=== PATIENT | male | born 1985 | race Caucasian/White ===

== ENCOUNTER 2022-10-10 19:16 | Observation (INO) | payer OTHER ==
[2022-10-10] MEDS ORDERED: SODIUM CHLORIDE 0.9% 1,000 ML IV STA (20:01)
[2022-10-10] MEDS ORDERED: HYDROmorphone 0.5 MG/0.5 ML SYRINGE IVP STA (20:01)
[2022-10-10] MEDS ORDERED: ONDANSETRON 4 MG/2 ML VIAL IVP STA (20:01)
[2022-10-10] MEDS ORDERED: LACTATED RINGERS 1,000 ML IV ONE ×2 (20:02→22:07)
[2022-10-10] MEDS ORDERED: PANTOPRAZOLE 40 MG/10 ML VIAL IVP STA (20:05)
--- NOTE | 2022-10-10 20:05 | ED ---
Abdominal Pain HPI - General Chief Complaint: Abdominal Pain Stated Complaint: abd pain/back pain Time Seen by Provider: 10/10/22 19:54 Source: patient, RN notes reviewed, old records reviewed Mode of arrival: ambulatory Limitations: no limitations - History of Present Illness Initial Comments: This is a pleasant 37-year-old presenting with complaints of epigastric abdominal pain radiating into his back feels similar to pancreatitis in the past. States he has chills but no fevers. Nausea and vomiting. States stopped smoking 2 months ago. Does not drink daily but did have 3 beers last night. MD Complaint: abdominal pain -: days(s) (1) Location: epigastric Radiation: back Severity scale (1-10): 9 Quality: sharp Consistency: constant Improves With: nothing Context: other (Feels similar to previous pancreatitis) Associated Symptoms: nausea, chills - Related Data Allergies Allergy/AdvReac Type Severity Reaction Status Date / Time No Known Allergies Allergy Verified 10/10/22 19:28 Review of Systems ROS Statement: Those systems with pertinent positive or pertinent negative responses have been documented in the HPI. ROS Other: All systems not noted in ROS Statement are negative. Past Medical History Additional Past Medical History / Comment(s): Pancrentitis, kidney stone History of Any Multi-Drug Resistant Organisms: None Reported Past Surgical History: No Surgical Hx Reported Past Psychological History: No Psychological Hx Reported Smoking Status: Current every day smoker Past Alcohol Use History: Daily Past Drug Use History: Marijuana General Exam Limitations: no limitations General appearance: alert, in no apparent distress Head exam: Present: atraumatic Eye exam: Absent: scleral icterus, conjunctival injection, periorbital swelling ENT exam: Present: mucous membranes moist Neck exam: Present: full ROM. Absent: tenderness, meningismus Respiratory exam: Absent: respiratory distress, accessory muscle use Cardiovascular Exam: Present: tachycardia GI/Abdominal exam: Present: soft, tenderness (epigastric). Absent: distended, rigid Extremities exam: Present: normal capillary refill. Absent: pedal edema, calf tenderness Back exam: Present: tenderness (lower back). Absent: CVA tenderness (R), CVA tenderness (L), muscle spasm, rash noted Neurological exam: Present: alert, oriented X3 Psychiatric exam: Present: normal affect, normal mood Skin exam: Present: warm, dry, normal color. Absent: cyanosis, diaphoretic, petechiae, pallor Course Vital Signs 10/10/22 10/10/22 10/10/22 19:26 21:48 23:20 Temperature 97.9 F 97.9 F Pulse Rate 103 H 76 Pulse Rate [ 78 Pulse Oximetery ] Respiratory 20 18 17 Rate Blood Pressure 192/91 137/99 Blood Pressure 155/91 [Left Arm] O2 Sat by Pulse 100 97 94 L Oximetry Medical Decision Making - Medical Decision Making Patient was given multiple doses of pain medication and antiemetics. IV fluids were given. There is no evidence of leukocytosis however lipase is 2087 and he will be admitted for acute pancreatitis. No lactic acidosis. Patient does admit now to drinking 3 or 4 days a week up to 6 beers at a time. Occasional liquor use. Computed tomography scan shows moderate retroperitoneal edema around the entire pancreas consistent with acute pancreatitis. Large gallbladder suggestive of gallbladder dysfunction. Fatty infiltration of the liver. Patient is agreeable to admission. Case discussed with Dr. Ibrahim. - Lab Data Result diagrams: 10/10/22 20:39 10/10/22 20:39 Lab Results 10/10/22 10/10/22 10/10/22 Range/Units 20:39 20:39 20:39 WBC 5.1 (3.8-10.6) k/uL RBC 4.79 (4.30-5.90) m/uL Hgb 16.9 (13.0-17.5) gm/dL Hct 47.5 (39.0-53.0) % MCV 99.1 (80.0-100.0) fL MCH 35.3 H (25.0-35.0) pg MCHC 35.6 (31.0-37.0) g/dL RDW 12.3 (11.5-15.5) % Plt Count 228 (150-450) k/uL MPV 7.9 Neutrophils % 69 % Lymphocytes % 25 % Monocytes % 3 % Eosinophils % 3 % Basophils % 0 % Neutrophils # 3.5 (1.3-7.7) k/uL Lymphocytes # 1.3 (1.0-4.8) k/uL Monocytes # 0.1 (0-1.0) k/uL Eosinophils # 0.1 (0-0.7) k/uL Basophils # 0.0 (0-0.2) k/uL Sodium 139 (137-145) mmol/L Potassium 4.3 (3.5-5.1) mmol/L Chloride 104 (98-107) mmol/L Carbon Dioxide 25 (22-30) mmol/L Anion Gap 10 mmol/L BUN 7 L (9-20) mg/dL Creatinine 0.88 (0.66-1.25) mg/dL Est GFR (CKD-EPI)AfAm >90 (>60 ml/min/1.73 sqM) Est GFR (CKD-EPI)NonAf >90 (>60 ml/min/1.73 sqM) Glucose 127 H (74-99) mg/dL Plasma Lactic Acid Higinio 1.2 (0.7-2.0) mmol/L Calcium 9.5 (8.4-10.2) mg/dL Total Bilirubin 1.2 (0.2-1.3) mg/dL AST 60 H (17-59) U/L ALT 52 H (4-49) U/L Alkaline Phosphatase 136 H (38-126) U/L Total Protein 7.9 (6.3-8.2) g/dL Albumin 4.8 (3.5-5.0) g/dL Amylase 80 (30-110) U/L Lipase 2087 H (23-300) U/L Disposition Clinical Impression: Pancreatitis Disposition: ADMITTED IP TO THIS [facility] Decision Date: 10/10/22 Decision Time: 22:09
--- NOTE | 2022-10-10 21:06 | XR ---
EXAMINATION TYPE: XR KUB DATE OF EXAM: 10/10/2022 COMPARISON: NONE HISTORY: Abdominal pain TECHNIQUE: 2 views upright FINDINGS: Bowel gas pattern is normal. No sign of intestinal obstruction or pneumoperitoneum. Fecal p attern is normal. No sign of a mass. IMPRESSION: Nonacute abdomen.
[2022-10-10 21:08] LABS: Basophils % (A) 0 %; Eosinophils # (A) 0.1 k/uL (0-0.7); Eosinophils % (A) 3 %; HCT 47.5 % (39.0-53.0); HGB 16.9 gm/dL (13.0-17.5); Lymphocytes # (A) 1.3 k/uL (1.0-4.8); Lymphocytes % (A) 25 %; MCH 35.3 pg (25.0-35.0); MCHC 35.6 g/dL (31.0-37.0); MCV 99.1 fL (80.0-100.0); Mean Platelet Volume 7.9; Monocytes # (A) 0.1 k/uL (0-1.0); Monocytes % (A) 3 %; Neutrophils # (A) 3.5 k/uL (1.3-7.7); Neutrophils % (A) 69 %; Platelet Count 228 k/uL (150-450); RBC 4.79 m/uL (4.30-5.90); RDW 12.3 % (11.5-15.5); WBC 5.1 k/uL (3.8-10.6)
[2022-10-10] MEDS ORDERED: HYDROmorphone 1 MG/ML 1 ML SYRINGE IVP STA (21:17)
[2022-10-10 21:33] LABS: ALT 52 U/L (4-49); AST 60 U/L (17-59); African American GFR (CKD) >90 (>60 ml/min/1.73 sqM); Albumin 4.8 g/dL (3.5-5.0); Alkaline Phosphatase 136 U/L (38-126); Amylase 80 U/L (30-110); Anion Gap 10 mmol/L; Blood Urea Nitrogen 7 mg/dL (9-20); Calcium 9.5 mg/dL (8.4-10.2); Carbon Dioxide 25 mmol/L (22-30); Chloride 104 mmol/L (98-107); Glucose 127 mg/dL (74-99); Non-African American GFR(CKD) >90 (>60 ml/min/1.73 sqM); Potassium 4.3 mmol/L (3.5-5.1); Sodium 139 mmol/L (137-145); Total Bilirubin 1.2 mg/dL (0.2-1.3); Total Protein 7.9 g/dL (6.3-8.2)
[2022-10-10] MEDS ORDERED: LORazepam 2 MG/ML INJ IV STA (21:52)
[2022-10-10 21:59] LABS: Lipase 2087 U/L (23-300)
[2022-10-10] MEDS ORDERED: NALOXONE 0.4 MG/ML 1 ML VIAL IV PRN (22:09)
[2022-10-10] MEDS ORDERED: ONDANSETRON 4 MG/2 ML VIAL IVP PRN (22:09)
--- NOTE | 2022-10-10 23:12 | CT ---
EXAMINATION TYPE: CT abdomen pelvis w con DATE OF EXAM: 10/10/2022 COMPARISON: None HISTORY: RUQ pain CT DLP: 668.9 mGycm Automated exposure control for dose reduction was used. CONTRAST: Performed with IV Contrast, patient injected with 100cc mL of Isovue 300. Images obtained from the diaphragm to the floor the pelvis with IV contrast. Lung bases are clear. No pleural effusion. Heart size is normal. No pericardial effusion. Liver splee n and stomach appear intact. There is some fat stranding around the pancreas. No pancreatic mass. Gal lbladder is large and measures 4.5 cm in diameter. The intrahepatic bile duct are not dilated. There is some fatty infiltration of the liver. There is no adrenal mass. Kidneys show satisfactory contrast opacification. No hydronephrosis. Ureter s are not dilated. Bladder distends smoothly. No inguinal hernia. No free fluid in the pelvis. No pel magdy mass. There is no mesenteric edema. No ascites or free air. No sign of a bowel obstruction. There are clips from appendectomy. Appendix not seen. The lumbar vertebrae have normal alignment. No compression fracture. Bony pelvis is intact. The hip j oints are intact. IMPRESSION: Moderate retroperitoneal edema around the entire pancreas and consistent with acute pancreatitis. Lar ge gallbladder is suggestive of gallbladder dysfunction. Fatty infiltration of the liver.
--- NOTE | 2022-10-11 03:17 | P.HPIM ---
History of Present Illness H&P Date: 10/10/22 The patient is a 37-year-old male with a PMH of the alcohol abuse who presents to the emergency room with complaints of abdominal pain, nausea, vomiting. The patient reports that he woke up this morning with epigastric abdominal discomfort, 8 out of 10 on maximal intensity, radiating to the back, constant, worsened with any food, with accompanying nausea and multiple episodes of nonbloody nonbilious emesis. Patient states that he drinks up to 10 beers daily and has been doing so for the past several years but states that yesterday he only had 3 beers. He reported that his abdominal pain is improved to a 4 out of 10 at the time of interview. Reports that his symptoms are similar to his prior episodes of acute pancreatitis for which he has been hospitalized at other facilities in the past. He denied experiencing chest discomfort or shortness of breath. He denied fever, chills, cough. CT abdomen and pelvis in the emergency room revealed findings consistent with acute cholecystitis with an enlarged gallbladder as well as fatty infiltration of the liver. Laboratory evaluation was remarkable for AST 60, ALT 52, and a lipase of 2087. The case was discussed in detail with the ED physician. Review of systems: Pertinent positives and negatives as discussed in HPI, a complete review of systems was performed and all other systems are negative. Physical examination: General: non toxic, no distress, appears older than stated age, normal weight Derm: no unusual rashes/lesions, warm Head: atraumatic, normocephalic, symmetric Eyes: EOMI, no lid lag, anicteric sclera, pupils equal round reactive to light ENT: Nose and ears atraumatic Neck: No cervical lymphadenopathy, trachea midline, supple Mouth: no lip lesion, mucus membranes moist Cardiovascular: S1S2 reg, no murmur, positive dorsalis pedis pulse bilateral, no edema Lungs: CTA bilateral, no rhonchi, no rales, no accessory muscle use Abdominal: soft, epigastric tenderness, some guarding Ext: muscle strength 5 out of 5 in all 4 extremities grossly, no gross muscle atrophy, no contractures, Neuro: CN II-XI grossly intact, no gross focal neuro deficits Psych: Alert, oriented, appropriate affect Assessment/plan Acute alcoholic pancreatitis -Continue with IV fluids -Monitor lipase -Nothing by mouth for now -Antiemetics -Pain control -Strongly advised on importance of cessation of alcohol use DVT prophylaxis -Heparin subcu The patient is admitted with an anticipated less than 2 midnight stay for evaluation of acute pancreatitis CODE STATUS: Full Code Discussed with: Patient Anticipated discharge date: in am Anticipated discharge place: Home Past Medical History Additional Past Medical History / Comment(s): Pancrentitis, kidney stone History of Any Multi-Drug Resistant Organisms: None Reported Past Surgical History: No Surgical Hx Reported Past Anesthesia/Blood Transfusion Reactions: No Reported Reaction Past Psychological History: No Psychological Hx Reported Smoking Status: Current every day smoker Past Alcohol Use History: Daily Past Drug Use History: Marijuana Medications and Allergies Allergies Allergy/AdvReac Type Severity Reaction Status Date / Time No Known Allergies Allergy Verified 10/10/22 19:28 Physical Exam Vitals: Vital Signs Temp Pulse Pulse Resp BP BP Pulse Ox 10/10/22 23:20 97.9 F 78 17 155/91 94 L 10/10/22 21:48 76 18 137/99 97 10/10/22 19:26 97.9 F 103 H 20 192/91 100 Intake and Output 10/10/22 10/10/22 10/11/22 14:59 22:59 06:59 Other: Weight 65.771 kg 65.771 kg Results CBC & Chem 7: 10/10/22 20:39 10/10/22 20:39 Labs: Abnormal Lab Results - Last 24 Hours (Table) 10/10/22 10/10/22 Range/Units 20:39 20:39 MCH 35.3 H (25.0-35.0) pg BUN 7 L (9-20) mg/dL Glucose 127 H (74-99) mg/dL AST 60 H (17-59) U/L ALT 52 H (4-49) U/L Alkaline Phosphatase 136 H (38-126) U/L Lipase 2087 H (23-300) U/L Thrombosis Risk Factor Assmnt - Choose All That Apply Any of the Below Risk Factors Present?: No Other Risk Factors: No Other congenital or acquired thrombophilia - If yes, enter type in comment: No Thrombosis Risk Factor Assessment Level: Very Low Risk
[2022-10-11 06:06] LABS: Basophils % (A) 0 %; Eosinophils % (A) 1 %; HCT 42.2 % (39.0-53.0); HGB 15.3 gm/dL (13.0-17.5); Lymphocytes # (A) 1.1 k/uL (1.0-4.8); Lymphocytes % (A) 12 %; MCH 35.7 pg (25.0-35.0); MCHC 36.3 g/dL (31.0-37.0); MCV 98.3 fL (80.0-100.0); Mean Platelet Volume 8.1; Monocytes # (A) 0.4 k/uL (0-1.0); Monocytes % (A) 4 %; Neutrophils # (A) 7.7 k/uL (1.3-7.7); Neutrophils % (A) 82 %; Platelet Count 166 k/uL (150-450); RBC 4.29 m/uL (4.30-5.90); RDW 12.2 % (11.5-15.5); WBC 9.3 k/uL (3.8-10.6)
[2022-10-11 06:14] LABS: ALT 42 U/L (4-49); AST 48 U/L (17-59); African American GFR (CKD) >90 (>60 ml/min/1.73 sqM); Albumin 3.9 g/dL (3.5-5.0); Alkaline Phosphatase 96 U/L (38-126); Amylase 116 U/L (30-110); Anion Gap 10 mmol/L; Blood Urea Nitrogen 4 mg/dL (9-20); Calcium 8.5 mg/dL (8.4-10.2); Carbon Dioxide 22 mmol/L (22-30); Chloride 104 mmol/L (98-107); Glucose 93 mg/dL (74-99); Non-African American GFR(CKD) >90 (>60 ml/min/1.73 sqM); Sodium 136 mmol/L (137-145); Total Bilirubin 1.3 mg/dL (0.2-1.3); Total Protein 6.3 g/dL (6.3-8.2)
[2022-10-11 06:29] LABS: Lipase 2554 U/L (23-300)
[2022-10-11] MEDS: SODIUM CHLORIDE 0.9% 1,000 ML IV SCH ×2 (06:58→14:51)
[2022-10-11] MEDS: PANTOPRAZOLE 40 MG/10 ML VIAL IV SCH (08:22)
[2022-10-11] MEDS: HEPARIN SODIUM,PORCINE/PF 5,000 UNIT/0.5 ML SYRINGE SQ SCH ×2 (08:22→17:27)
[2022-10-11] MEDS: HYDROmorphone 0.5 MG/0.5 ML SYRINGE IVP PRN ×3 (08:22→20:41)
[2022-10-11] MEDS ORDERED: LORazepam 2 MG/ML INJ IV PRN ×3 (13:25)
--- NOTE | 2022-10-11 14:53 | P.PN ---
Subjective Progress Note Date: 10/11/22 Patient is a 37-year-old male with known alcohol abuse who presented to the emergency room with complaints of abdominal pain, nausea, vomiting. In the emergency department he underwent an extensive evaluation. Initial vital signs showed the patient to be hypertensive with a blood pressure of 192/91 and tachycardic with a heart rate of 103. Initial laboratory analysis was remarkable for an AST 60, ALT 52, and lipase 2087. CT abdomen and pelvis in the emergency room revealed findings consistent with acute increased otitis with an enlarged gallbladder as well as fatty infiltration of the liver. Patient was started on IV fluids, antiemetics, and pain control. Arrangements were made for admission. Seen and examined at bedside. He complains of continued abdominal pain that is less than yesterday. He is having some tremors, no nausea, no headache he does feel that he is having some alcohol withdrawal. He states he had worsening problems with pancreatitis when he was in the 9 months ago was drinking hard alcohol. We discussed the importance of him abstaining from any alcohol. General: nontoxic, no distress, appears at stated age Derm: warm, dry Head: atraumatic, normocephalic, symmetric Eyes: EOMI, no lid lag, anicteric sclera Mouth: no lip lesion, mucus membranes moist Cardiovascular: S1S2 reg, no murmur, positive posterior tibial pulse bilateral, Lungs: CTA bilateral, no rhonchi, no rales , no accessory muscle use Abdominal: soft, + tender to palpation diffusely, no guarding, no appreciable organomegaly Ext: no gross muscle atrophy, no edema, no contractures Neuro: CN II-XI grossly intact, no focal neuro deficits, mild tremors Psych: Alert, oriented, appropriate affect Assessment/plan Acute alcoholic pancreatitis -Continue with IV fluids -Monitor lipase -Nothing by mouth for now -Antiemetics -Pain control -Strongly advised on importance of cessation of alcohol use ETOH withdrawal - CIWA - Thiamine - Folic Acid - Discussed need for sessation cessation DVT prophylaxis: heparin Anticipated discharge date: in am Anticipated discharge place: Home Objective - Vital Signs Vital signs: Vital Signs Temp 98.1 F 10/11/22 07:00 Pulse 70 10/11/22 07:00 Resp 15 10/11/22 07:00 BP 138/93 10/11/22 07:00 Pulse Ox 99 10/11/22 07:00 FiO2 Intake & Output 12/31/22 01/01/23 01/01/23 18:59 06:59 18:59 Weight 65.771 kg Other: Voiding Method Toilet # Voids 1 - Labs CBC & Chem 7: 10/11/22 05:14 10/11/22 05:23 Labs: Abnormal Lab Results - Last 24 Hours (Table) 10/10/22 10/10/22 10/11/22 Range/Units 20:39 20:39 05:14 RBC 4.29 L (4.30-5.90) m/uL MCH 35.3 H 35.7 H (25.0-35.0) pg Sodium (137-145) mmol/L BUN 7 L (9-20) mg/dL Glucose 127 H (74-99) mg/dL AST 60 H (17-59) U/L ALT 52 H (4-49) U/L Alkaline Phosphatase 136 H (38-126) U/L Amylase (30-110) U/L Lipase 2087 H (23-300) U/L 10/11/22 Range/Units 05:23 RBC (4.30-5.90) m/uL MCH (25.0-35.0) pg Sodium 136 L (137-145) mmol/L BUN 4 L (9-20) mg/dL Glucose (74-99) mg/dL AST (17-59) U/L ALT (4-49) U/L Alkaline Phosphatase (38-126) U/L Amylase 116 H (30-110) U/L Lipase 2554 H (23-300) U/L
[2022-10-12] MEDS: SODIUM CHLORIDE 0.9% 1,000 ML IV SCH ×4 (00:01→20:52)
[2022-10-12] MEDS: HEPARIN SODIUM,PORCINE/PF 5,000 UNIT/0.5 ML SYRINGE SQ SCH ×4 (00:01→23:52)
[2022-10-12] MEDS: HYDROmorphone 0.5 MG/0.5 ML SYRINGE IVP PRN ×4 (00:13→12:54)
[2022-10-12] MEDS: MULTIVITAMINS, THERA 1 EACH TAB PO SCH (08:45)
[2022-10-12] MEDS: FOLIC ACID 1 MG TAB PO SCH (08:45)
[2022-10-12] MEDS: PANTOPRAZOLE 40 MG/10 ML VIAL IV SCH (08:45)
[2022-10-12] MEDS: THIAMINE 100 MG TAB PO SCH (08:45)
--- NOTE | 2022-10-12 14:59 | P.PN ---
Subjective Progress Note Date: 10/12/22 Patient is a 37-year-old male with known alcohol abuse who presented to the emergency room with complaints of abdominal pain, nausea, vomiting. In the emergency department he underwent an extensive evaluation. Initial vital signs showed the patient to be hypertensive with a blood pressure of 192/91 and tachycardic with a heart rate of 103. Initial laboratory analysis was remarkable for an AST 60, ALT 52, and lipase 2087. CT abdomen and pelvis in the emergency room revealed findings consistent with acute increased otitis with an enlarged gallbladder as well as fatty infiltration of the liver. Patient was started on IV fluids, antiemetics, and pain control. Arrangements were made for admission. Seen and examined at bedside. He complains of continued abdominal pain 6/10 in severity that can worsen to 9/10 with meals. General: nontoxic, no distress, appears at stated age Derm: warm, dry Head: atraumatic, normocephalic, symmetric Eyes: EOMI, no lid lag, anicteric sclera Mouth: no lip lesion, mucus membranes moist Cardiovascular: S1S2 reg, no murmur Lungs: CTA bilateral, no rhonchi, no rales , no accessory muscle use Abdominal: soft, + tender to palpation diffusely, no guarding, no appreciable organomegaly Ext: no gross muscle atrophy, no edema, no contractures Neuro: no focal neuro deficits, mild tremors Psych: Alert, oriented, appropriate affect #Acute alcoholic pancreatitis Continue with IV fluids Monitor lipase Advance diet to GI soft Antiemetics Pain control: Dilaudid PRN, added Percocet Strongly advised on importance of cessation of alcohol use #ETOH withdrawal CIWA Thiamine Folic Acid Discussed need for cessation cessation Objective - Vital Signs Vital signs: Vital Signs Temp 98.1 F 10/12/22 07:00 Pulse 81 10/12/22 07:00 Resp 16 10/12/22 07:00 BP 122/78 10/12/22 07:00 Pulse Ox 98 10/12/22 07:00 FiO2 Intake & Output 10/11/22 10/12/22 10/12/22 18:59 06:59 18:59 Intake Total 60 236 Balance 60 236 Intake: Oral 60 236 Other: Voiding Method Toilet # Voids 2 2 1 - Labs CBC & Chem 7: 10/11/22 05:14 10/11/22 05:23
[2022-10-12] MEDS: oxyCODONE-APAP 10-325MG 1 EACH TAB PO PRN ×2 (16:11→20:50)
[2022-10-13] MEDS: HYDROmorphone 0.5 MG/0.5 ML SYRINGE IVP PRN (00:28)
[2022-10-13] MEDS: oxyCODONE-APAP 10-325MG 1 EACH TAB PO PRN ×3 (04:09→13:07)
[2022-10-13] MEDS: SODIUM CHLORIDE 0.9% 1,000 ML IV SCH (05:43)
[2022-10-13] MEDS: THIAMINE 100 MG TAB PO SCH (08:31)
[2022-10-13] MEDS: HEPARIN SODIUM,PORCINE/PF 5,000 UNIT/0.5 ML SYRINGE SQ SCH (08:31)
[2022-10-13] MEDS: FOLIC ACID 1 MG TAB PO SCH (08:32)
[2022-10-13] MEDS: MULTIVITAMINS, THERA 1 EACH TAB PO SCH (08:32)
[2022-10-13 09:09] VITALS: RESP 17
[2022-10-13] MEDS: PANTOPRAZOLE 40 MG/10 ML VIAL IV SCH (10:29)
[2022-10-13 15:25] VITALS: BP 126/86; PULSE 76; TEMP 98.1
--- NOTE | 2022-10-13 17:30 | P.DS ---
Providers Date of admission: 10/10/22 22:30 Expected date of discharge: 10/13/22 Attending physician: Geo Cisneros MD Primary care physician: Bob Dailey MD Hospital Course: Patient is a 37-year-old male with known alcohol abuse who presented to the emergency room with complaints of abdominal pain, nausea, vomiting. In the emergency department he underwent an extensive evaluation. Initial vital signs showed the patient to be hypertensive with a blood pressure of 192/91 and tachycardic with a heart rate of 103. Initial laboratory analysis was remarkable for an AST 60, ALT 52, and lipase 2087. CT abdomen and pelvis in the emergency room revealed findings consistent with acute increased otitis with an enlarged gallbladder as well as fatty infiltration of the liver. Patient was started on IV fluids, antiemetics, and pain control. Arrangements were made for admission. Patient's pain control was adequate with Percocet and Dilaudid as needed. He was able to tolerate GI soft diet at the time of discharge. Seen and examined at bedside. He complains of continued abdominal pain that is improved since admission. He reports no nausea or vomiting. He is requesting to be discharged home. Pertinent studies include KUB, CTAP General: nontoxic, no distress, appears at stated age Derm: warm, dry Head: atraumatic, normocephalic, symmetric Eyes: EOMI, no lid lag, anicteric sclera Mouth: no lip lesion, mucus membranes moist Cardiovascular: S1S2 reg, no murmur Lungs: CTA bilateral, no rhonchi, no rales , no accessory muscle use Abdominal: soft, + tender to palpation diffusely, no guarding, no appreciable organomegaly Ext: no gross muscle atrophy, no edema, no contractures Neuro: no focal neuro deficits Psych: Alert, oriented, appropriate affect Discharge diagnosis: #Acute alcoholic pancreatitis #ETOH withdrawal Patient Condition at Discharge: Stable Plan - Discharge Summary New Discharge Prescriptions: New oxyCODONE-APAP 10-325MG [Percocet 10-325 mg] 1 each PO Q4HR PRN #18 tab PRN Reason: Pain Pantoprazole [Protonix] 40 mg PO DAILY #30 tab Discharge Medication List Pantoprazole [Protonix] 40 mg PO DAILY #30 tab 10/13/22 [Rx] oxyCODONE-APAP 10-325MG [Percocet 10-325 mg] 1 each PO Q4HR PRN #18 tab 10/13/22 [Rx] Follow up Appointment(s)/Referral(s): None,Stated [REFERRING] - 1-2 days Patient Instructions/Handouts: Pancreatitis (DC) Activity/Diet/Wound Care/Special Instructions: Diet: Regular Refrain from drinking alcohol. Discharge/Stand Alone Forms: AA Meetings [place], Outpatient Counseling, In Substance Abuse Facilities Discharge Disposition: HOME SELF-CARE
== END 2022-10-13 16:02 | disposition home or self-care (01) ==
LOC: EC 19:16 → 6NMEDSUR 22:30
PROVIDERS: ADMIT Internal Medicine; ATTEND Internal Medicine
DX: K85.20 Alcohol induced acute pancreatitis without necrosis or infection (principal); F10.239 Alcohol dependence with withdrawal, unspecified; K76.0 Fatty (change of) liver, not elsewhere classified; K82.8 Other specified diseases of gallbladder; R03.0 Elevated blood-pressure reading, without diagnosis of hypertension; R00.0 Tachycardia, unspecified; Z71.41 Alcohol abuse counseling and surveillance of alcoholic; Z87.442 Personal history of urinary calculi; Z87.19 Personal history of other diseases of the digestive system; Z87.891 Personal history of nicotine dependence
CPT/HCPCS: 96376 ×4; 96361 ×3; 96372 ×3; 96374; 96375; 99285; 36415; 80053 ×2; 82150 ×2; 83605; 83690 ×2; 85025 ×2; 74018; 74177; G0378 ×4; J2060; J2405; J1170 ×5; C9113 ×3; Q9967; J1790; J1644 ×3

== ENCOUNTER 2023-03-12 13:41 | Observation (INO) | payer OTHER ==
[2023-03-12] MEDS ORDERED: KETOROLAC 15 MG/ML 1 ML VIAL IVP STA (14:15)
[2023-03-12] MEDS ORDERED: FAMOTIDINE 20 MG/2 ML VIAL IV STA (14:15)
[2023-03-12] MEDS ORDERED: ONDANSETRON 4 MG/2 ML VIAL IVP STA (14:15)
[2023-03-12] MEDS ORDERED: SODIUM CHLORIDE 0.9% 1,000 ML IV ONE ×2 (14:15→15:54)
--- NOTE | 2023-03-12 14:31 | ED ---
General Adult HPI - General Chief complaint: Abdominal Pain Stated complaint: Abd Pain Time Seen by Provider: 03/12/23 14:06 Source: patient, RN notes reviewed Mode of arrival: ambulatory Limitations: no limitations - History of Present Illness Initial comments: 37-year-old male with no significant past medical history presents to the emergency department with a chief complaint of abdominal pain. Patient reports that he had epigastric pain accompanied with nausea and vomiting times one day. He denies recent Sick contacts. He reports that the last time that he had this he had pancreatitis. He denies any recent alcohol or drug use. Denies any fevers, flank pain, chest pain, shortness of breath, dysuria, hematuria - Related Data Home Medications Medication Instructions Recorded Confirmed No Known Home Medications 03/12/23 03/12/23 Allergies Allergy/AdvReac Type Severity Reaction Status Date / Time No Known Allergies Allergy Verified 03/12/23 16:34 Review of Systems ROS Statement: Those systems with pertinent positive or pertinent negative responses have been documented in the HPI. ROS Other: All systems not noted in ROS Statement are negative. Past Medical History Additional Past Medical History / Comment(s): Pancreatitis, kidney stone History of Any Multi-Drug Resistant Organisms: None Reported Past Surgical History: No Surgical Hx Reported Past Anesthesia/Blood Transfusion Reactions: No Reported Reaction Past Psychological History: No Psychological Hx Reported Smoking Status: Current every day smoker Past Alcohol Use History: Daily Past Drug Use History: Marijuana General Exam - General Exam Comments Initial Comments: General: Alert, in no acute distress Head: atraumatic normocephalic. Eyes PERRL, EOMI intact, mucous membranes moist Respiratory: Lungs clear to auscultation bilaterally Cardiovascular: Heart rate regular rate and rhythm Abdominal: Soft without guarding or rebound, epigastric tenderness Extremities: Normal inspection with full range of motion and normal capillary refill Neuroogic: alert and oriented 3, CN II-XII intact, able to ambulate with steady gait Skin: warm dry and intact with normal color Limitations: no limitations Course Vital Signs 03/12/23 03/12/23 03/12/23 13:44 17:01 17:32 Temperature 97.7 F 98.3 F Pulse Rate 106 H 100 72 Respiratory 20 18 Rate Blood Pressure 144/87 129/88 O2 Sat by Pulse 99 97 Oximetry 03/12/23 17:42 Temperature Pulse Rate 74 Respiratory Rate Blood Pressure O2 Sat by Pulse Oximetry - Reevaluation(s) Reevaluation #1: 03/12/23 16:19 Patient reevaluated and updated on results. Patient still reporting pain. Patient is agreeable with the plan for admission Reevaluation #2: 03/12/23 16:[address] freitas, [facility] who agrees with plan of care and accepts the patient for admission Reevaluation #3: 03/12/23 17:11 Patient reevaluated. Patient has inspiratory wheezes. Albuterol treatment ordered. EKG Findings - EKG Comments: EKG Findings:: I interpreted the following: EKG performed at 15:00. rate 65 bpm, NSR. PR126, QRS 98, Qt/Qtc 444/461 Medical Decision Making - Medical Decision Making Was pt. sent in by a medical professional or institution (, PA, C UNIX DEVELOPER, urgent care, hospital, or alf...) When possible be specific @ -[No] Did you speak to anyone other than the patient for history (EMS, parent, family, police, friend...)? What history was obtained from this source @ -[No] Did you review nursing and triage notes (agree or disagree)? Why? @ -[I reviewed and agree with nursing and triage notes] Were old charts reviewed (outside hosp., previous admission, EMS record, old EKG, old radiological studies, urgent care reports/EKG's, alf records)? Report findings @ -[No old charts were reviewed] Differential Diagnosis (chest pain, altered mental status, abdominal pain women, abdominal pain men, vaginal bleeding, weakness, fever, dyspnea, syncope, headache, dizziness, GI bleed, back pain, seizure, CVA, palpatations, mental health, musculoskeletal)? @ -[not applicable] EKG interpreted by me (3pts min.). @ -[As above] X-rays interpreted by me (1pt min.). @ -[None done] CT interpreted by me (1pt min.). @ -[None done] U/S interpreted by me (1pt. min.). @ -[None done] What testing was considered but not performed or refused? (CT, X-rays, U/S, labs)? Why? @ -[None] What meds were considered but not given or refused? Why? @ -[None] Did you discuss the management of the patient with other professionals (professionals i.e. , PA, C UNIX DEVELOPER, lab, RT, psych nurse, manager social responsibility, car hopper, teacher, custom protection officer, case worker)? Give summary @ -[No] Was smoking cessation discussed for >3mins.? @ -[No] Was critical care preformed (if so, how long)? @ -[No] Were there social determinants of health that impacted care today? How? (Homelessness, low income, unemployed, alcoholism, drug addiction, transportation, low edu. Level, literacy, decrease access to med. care, prison, rehab)? @ -[No] Was there de-escalation of care discussed even if they declined (Discuss DNR or withdrawal of care, Hospice)? DNR status @ -[No] What co-morbidities impacted this encounter? (DM, HTN, Smoking, COPD, CAD, Cancer, CVA, ARF, Chemo, Hep., AIDS, mental health diagnosis, sleep apnea, morbid obesity)? @ -[None] Was patient admitted / discharged? Hospital course, mention meds given and route, prescriptions, significant lab abnormalities, going to OR and other pertinent info. @ -Admission. This is a 37-year-old male who presents to the emergency department with epigastric pain. Patient had a thorough history and physical exam performed while in the ED. Sickle exam reveals mild epigastric tenderness. No rebound. Abdomen is soft. Patient had lab work and imaging which revealed WBC 6.4, hemoglobin 16.2 chemistry unremarkable BUN 10, creatinine 0.74 lactic acid 0.8 lipase 2697 urine negative, Covid influenza and RSV negative. Ultrasound of the gallbladder reveals no evidence of cholelithiasis. I discussed the results in detail with the patient verbalized understanding. He is agreeable with the plan for admission for further observation. Case discussed with Dr. freitas, [facility] who agrees to accept the patient for admission for further care. Patient was given 2 L of IV fluids. Toradol, Zofran, Pepcid with symptomatic relief. Case discussed with , who agrees with plan of care Undiagnosed new problem with uncertain prognosis? @ -[No] Drug Therapy requiring intensive monitoring for toxicity (Heparin, Nitro, Insulin, Cardizem)? @ -[No] Were any procedures done? @ -[No] Diagnosis/symptom? @ -Pancreatitis - Epigastric Pain Acute, or Chronic, or Acute on Chronic? @ -Acute Uncomplicated (without systemic symptoms) or Complicated (systemic symptoms)? @ -Uncomplicated Side effects of treatment? @ -[No] Exacerbation, Progression, or Severe Exacerbation? @ -[No] Poses a threat to life or bodily function? How? (Chest pain, [place], [place], pneumonia, PE, COPD, DKA, ARF, appy, cholecystitis, CVA, Diverticulitis, Homicidal, Suicidal, threat to staff... and all critical care pts) @ -Low likelihood - Lab Data Result diagrams: 03/12/23 14:20 03/12/23 14:20 Lab Results 03/12/23 03/12/23 03/12/23 Range/Units 14:20 14:20 14:20 WBC 6.4 (3.8-10.6) k/uL RBC 4.74 (4.30-5.90) m/uL Hgb 16.2 (13.0-17.5) gm/dL Hct 47.6 (39.0-53.0) % MCV 100.3 H (80.0-100.0) fL MCH 34.2 (25.0-35.0) pg MCHC 34.1 (31.0-37.0) g/dL RDW 12.5 (11.5-15.5) % Plt Count 178 (150-450) k/uL MPV 7.9 Neutrophils % 65 % Lymphocytes % 15 % Monocytes % 5 % Eosinophils % 13 % Basophils % 0 % Neutrophils # 4.1 (1.3-7.7) k/uL Lymphocytes # 1.0 (1.0-4.8) k/uL Monocytes # 0.3 (0-1.0) k/uL Eosinophils # 0.8 H (0-0.7) k/uL Basophils # 0.0 (0-0.2) k/uL Sodium 138 (137-145) mmol/L Potassium 4.3 (3.5-5.1) mmol/L Chloride 99 (98-107) mmol/L Carbon Dioxide 28 (22-30) mmol/L Anion Gap 11 mmol/L BUN 10 (9-20) mg/dL Creatinine 0.74 (0.66-1.25) mg/dL Est GFR (CKD-EPI)AfAm >90 (>60 ml/min/1.73 sqM) Est GFR (CKD-EPI)NonAf >90 (>60 ml/min/1.73 sqM) Glucose 104 H (74-99) mg/dL Calcium 9.1 (8.4-10.2) mg/dL Total Bilirubin 1.3 (0.2-1.3) mg/dL AST 70 H (17-59) U/L ALT 60 H (4-49) U/L Alkaline Phosphatase 106 (38-126) U/L Total Protein 7.4 (6.3-8.2) g/dL Albumin 4.5 (3.5-5.0) g/dL Amylase 95 (30-110) U/L Lipase 2697 H (23-300) U/L Urine Color Yellow Urine Appearance Clear (Clear) Urine pH 6.0 (5.0-8.0) Ur Specific [place] 1.030 (1.001-1.035) Urine Protein 1+ H (Negative) Urine Glucose (UA) Negative (Negative) Urine Ketones 4+ H (Negative) Urine Blood Negative (Negative) Urine Nitrite Negative (Negative) Urine Bilirubin 1+ H (Negative) Urine Urobilinogen 3.0 (<2.0) mg/dL Ur Leukocyte Esterase Negative (Negative) Urine RBC 1 (0-5) /hpf Urine WBC 4 (0-5) /hpf Ur Squamous Epith Cells <1 (0-4) /hpf Urine Mucus Many H (None) /hpf Influenza Type A (PCR) (Not Detectd) Influenza Type B (PCR) (Not Detectd) RSV (PCR) (Not Detectd) SARS-CoV-2 (PCR) (Not Detectd) 03/12/23 Range/Units 14:20 WBC (3.8-10.6) k/uL RBC (4.30-5.90) m/uL Hgb (13.0-17.5) gm/dL Hct (39.0-53.0) % MCV (80.0-100.0) fL MCH (25.0-35.0) pg MCHC (31.0-37.0) g/dL RDW (11.5-15.5) % Plt Count (150-450) k/uL MPV Neutrophils % % Lymphocytes % % Monocytes % % Eosinophils % % Basophils % % Neutrophils # (1.3-7.7) k/uL Lymphocytes # (1.0-4.8) k/uL Monocytes # (0-1.0) k/uL Eosinophils # (0-0.7) k/uL Basophils # (0-0.2) k/uL Sodium (137-145) mmol/L Potassium (3.5-5.1) mmol/L Chloride (98-107) mmol/L Carbon Dioxide (22-30) mmol/L Anion Gap mmol/L BUN (9-20) mg/dL Creatinine (0.66-1.25) mg/dL Est GFR (CKD-EPI)AfAm (>60 ml/min/1.73 sqM) Est GFR (CKD-EPI)NonAf (>60 ml/min/1.73 sqM) Glucose (74-99) mg/dL Calcium (8.4-10.2) mg/dL Total Bilirubin (0.2-1.3) mg/dL AST (17-59) U/L ALT (4-49) U/L Alkaline Phosphatase (38-126) U/L Total Protein (6.3-8.2) g/dL Albumin (3.5-5.0) g/dL Amylase (30-110) U/L Lipase (23-300) U/L Urine Color Urine Appearance (Clear) Urine pH (5.0-8.0) Ur Specific [place] (1.001-1.035) Urine Protein (Negative) Urine Glucose (UA) (Negative) Urine Ketones (Negative) Urine Blood (Negative) Urine Nitrite (Negative) Urine Bilirubin (Negative) Urine Urobilinogen (<2.0) mg/dL Ur Leukocyte Esterase (Negative) Urine RBC (0-5) /hpf Urine WBC (0-5) /hpf Ur Squamous Epith Cells (0-4) /hpf Urine Mucus (None) /hpf Influenza Type A (PCR) Not Detected (Not Detectd) Influenza Type B (PCR) Not Detected (Not Detectd) RSV (PCR) Not Detected (Not Detectd) SARS-CoV-2 (PCR) Not Detected (Not Detectd) Disposition Clinical Impression: Pancreatitis, Abdominal pain Disposition: ADMITTED IP TO THIS HOSP Condition: Fair Is patient prescribed a controlled substance at d/c from ED?: No Time of Disposition: 16:13
[2023-03-12 15:00] LABS: Basophils % (A) 0 %; Eosinophils # (A) 0.8 k/uL (0-0.7); Eosinophils % (A) 13 %; HCT 47.6 % (39.0-53.0); HGB 16.2 gm/dL (13.0-17.5); Lymphocytes % (A) 15 %; MCH 34.2 pg (25.0-35.0); MCHC 34.1 g/dL (31.0-37.0); MCV 100.3 fL (80.0-100.0); Mean Platelet Volume 7.9; Monocytes # (A) 0.3 k/uL (0-1.0); Monocytes % (A) 5 %; Neutrophils # (A) 4.1 k/uL (1.3-7.7); Neutrophils % (A) 65 %; Platelet Count 178 k/uL (150-450); RBC 4.74 m/uL (4.30-5.90); RDW 12.5 % (11.5-15.5); WBC 6.4 k/uL (3.8-10.6)
[2023-03-12 15:05] LABS: Appearance,Urine Clear (Clear); Bilirubin,Urine 1+ (Negative); Blood,Urine Negative (Negative); Color,Urine Yellow; Glucose,Urine (UA) Negative (Negative); Ketones,Urine 4+ (Negative); Leukocyte Esterase,Urine Negative (Negative); Mucus,Urine Many /hpf; Nitrite,Urine Negative (Negative); Protein,Urine 1+ (Negative); RBC,Urine 1 /hpf (0-5); Squamous Epithelial Cell,Urine <1 /hpf (0-4); WBC,Urine 4 /hpf (0-5)
[2023-03-12 15:15] LABS: ALT 60 U/L (4-49); AST 70 U/L (17-59); African American GFR (CKD) >90 (>60 ml/min/1.73 sqM); Albumin 4.5 g/dL (3.5-5.0); Alkaline Phosphatase 106 U/L (38-126); Amylase 95 U/L (30-110); Anion Gap 11 mmol/L; Blood Urea Nitrogen 10 mg/dL (9-20); Calcium 9.1 mg/dL (8.4-10.2); Carbon Dioxide 28 mmol/L (22-30); Chloride 99 mmol/L (98-107); Glucose 104 mg/dL (74-99); Non-African American GFR(CKD) >90 (>60 ml/min/1.73 sqM); Potassium 4.3 mmol/L (3.5-5.1); Sodium 138 mmol/L (137-145); Total Bilirubin 1.3 mg/dL (0.2-1.3); Total Protein 7.4 g/dL (6.3-8.2)
--- NOTE | 2023-03-12 15:33 | US ---
EXAMINATION TYPE: US gallbladder DATE OF EXAM: 03/12/2023 COMPARISON: CT 2021 CLINICAL INDICATION: Male, 37 years old with history of RUQ/Epigastric pain; Abdomen pain TECHNIQUE: Multiple sonographic images of the right upper quadrant are obtained. FINDINGS: EXAM MEASUREMENTS: Liver Length: 16.1 cm Gallbladder Wall: 0.2 cm CBD: 0.3 cm Right Kidney: 9.5 x 4.7 x 5.0 cm Pancreas: duct seen measuring 0.2cm Liver: increased echogenicity, course echotexture Gallbladder: wnl Evidence for sonographic Wallace's sign: no CBD: visualized portions wnl, limited by overlying bowel gas Right Kidney: wnl IMPRESSION: Hepatic steatosis noted.
[2023-03-12 15:41] LABS: Lipase 2697 U/L (23-300)
[2023-03-12] MEDS ORDERED: MORPHINE SULFATE 4 MG/ML SYRINGE IVP STA (16:18)
[2023-03-12] MEDS ORDERED: NALOXONE 0.4 MG/ML 1 ML VIAL IV PRN (16:26)
[2023-03-12] MEDS ORDERED: THIAMINE 100 MG/ML 2 ML VIAL IM STA (16:27)
[2023-03-12] MEDS ORDERED: LORazepam 2 MG/ML INJ IV PRN ×3 (16:27)
--- NOTE | 2023-03-12 16:34 | XR ---
EXAMINATION TYPE: XR chest 2V DATE OF EXAM: 03/12/2023 4:30 PM COMPARISON: None TECHNIQUE: XR chest 2V Frontal and lateral views of the chest. CLINICAL INDICATION:Male, 37 years old with history of rule out infiltrate/effusion; FINDINGS: Lungs/Pleura: There is no evidence of pleural effusion, focal consolidation, or pneumothorax. Pulmonary vascularity: Unremarkable. Heart/mediastinum: Cardiomediastinal silhouette is unremarkable. Musculoskeletal: No acute osseous pathology. IMPRESSION: No acute cardiopulmonary disease/process.
[2023-03-12] MEDS: SODIUM CHLORIDE 0.9% 1,000 ML IV SCH (16:53)
[2023-03-12] MEDS ORDERED: ALBUTEROL NEBULIZED 2.5 MG/3 ML INHALATION STA (17:10)
[2023-03-12] MEDS: MORPHINE SULFATE 4 MG/ML SYRINGE IV PRN (21:28)
[2023-03-13] MEDS: MORPHINE SULFATE 4 MG/ML SYRINGE IV PRN ×6 (01:30→21:23)
[2023-03-13] MEDS: SODIUM CHLORIDE 0.9% 1,000 ML IV SCH ×2 (04:15→15:40)
[2023-03-13] MEDS: THIAMINE 100 MG TAB PO SCH (09:25)
[2023-03-13] MEDS ORDERED: polyethylene glycoL 3350 17 GM POWD.PACK PO PRN (10:34)
[2023-03-13] MEDS ORDERED: IPRATROPIUM-ALBUTEROL 3 ML NEB INHALATION PRN (10:35)
[2023-03-13] MEDS: PANTOPRAZOLE 40 MG/10 ML VIAL IVP SCH (10:50)
[2023-03-13] MEDS ORDERED: traMADol 50 MG TAB PO PRN (11:30)
[2023-03-13] MEDS ORDERED: NAPROXEN 250 MG TAB PO PRN (11:32)
--- NOTE | 2023-03-13 13:16 | P.HPIM ---
History of Present Illness Patient was in [id number] male came in with complaints of epigastric abdominal pain found to have an keratitis patient back hepatitis is secondary to alcohol use although patient doesn't drink excess alcohol. Patient used to drink a lot in the past had multiple episodes of pancreatitis in the past. Patient's serum sodium is 134. Ultrasound of the abdomen did not show any gallstones but did show fatty liver. Patient the pain is sharp epigastric radiate to the back 10 x 10 in severity REVIEW OF SYSTEMS: CONSTITUTIONAL: No fever, no malaise, no fatigue. HEENT: No recent visual problems or hearing problems. Denied any sore throat. CARDIOVASCULAR: No chest pain, orthopnea, PND, no palpitations, no syncope. PULMONARY: No shortness of breath, no cough, no hemoptysis. GASTROINTESTINAL: No diarrheaNEUROLOGICAL: No headaches, no weakness, no numbness. HEMATOLOGICAL: Denies any bleeding or petechiae. GENITOURINARY: Denies any burning micturition, frequency, or urgency. MUSCULOSKELETAL/RHEUMATOLOGICAL: Denies any joint pain, swelling, or any muscle pain. ENDOCRINE: Denies any polyuria or polydipsia. The rest of the 14-point review of systems is negative. PHYSICAL EXAMINATION: GENERAL: The patient is alert and oriented x3, not in any acute distress. Well developed, well nourished. HEENT: Pupils are round and equally reacting to light. EOMI. No scleral icterus. No conjunctival pallor. Normocephalic, atraumatic. No pharyngeal erythema. No thyromegaly. CARDIOVASCULAR: S1 and S2 present. No murmurs, rubs, or gallops. PULMONARY: Chest is clear to auscultation, no wheezing or crackles. ABDOMEN: Soft, moderate epigastric abdominal tenderness, nondistended, normoactive bowel sounds. No palpable organomegaly. MUSCULOSKELETAL: No joint swelling or deformity. EXTREMITIES: No cyanosis, clubbing, or pedal edema. NEUROLOGICAL: Gross neurological examination did not reveal any focal deficits. SKIN: No rashes. Assessment and plan -Alcoholic pancreatitis: Counseling was provided regarding alcoholism patient pain is better patient will be started on clear liquid diet, advance as tolerated. Patient will be and IV Protonix and Toradol for pain -Hypervolemic hyponatremia for which patient will continued on IV fluids will increase the IV fluids -Hypomagnesemia secondary to alcoholism pain is will be replaced -Nicotine use: Counseling was provided DVT prophylaxis: Early ambulation Past Medical History Additional Past Medical History / Comment(s): Pancreatitis, kidney stone History of Any Multi-Drug Resistant Organisms: None Reported Past Surgical History: No Surgical Hx Reported Past Anesthesia/Blood Transfusion Reactions: No Reported Reaction Past Psychological History: No Psychological Hx Reported Smoking Status: Current every day smoker Past Alcohol Use History: Daily Past Drug Use History: Marijuana Medications and Allergies Home Medications Medication Instructions Recorded Confirmed Type No Known Home Medications 03/12/23 03/12/23 History Allergies Allergy/AdvReac Type Severity Reaction Status Date / Time No Known Allergies Allergy Verified 03/12/23 16:34 Physical Exam Vitals: Vital Signs Temp Pulse Pulse Pulse Resp BP BP 03/13/23 07:08 98 F 84 16 143/88 03/13/23 02:46 98.1 F 88 17 134/84 03/12/23 19:42 98.7 F 97 18 138/90 03/12/23 18:28 98.0 F 72 132/94 03/12/23 17:42 74 03/12/23 17:32 72 03/12/23 17:01 98.3 F 100 18 129/88 03/12/23 13:44 97.7 F 106 H 20 144/87 Pulse Ox 03/13/23 07:08 99 03/13/23 02:46 97 03/12/23 19:42 100 03/12/23 18:28 99 03/12/23 17:42 03/12/23 17:32 03/12/23 17:01 97 03/12/23 13:44 99 Intake and Output 03/12/23 03/13/23 03/13/23 22:59 06:59 14:59 Other: Voiding Method Toilet # Voids 1 1 Weight 63.503 kg Results CBC & Chem 7: 03/12/23 14:20 03/12/23 14:20 Labs: Abnormal Lab Results - Last 24 Hours (Table) 03/12/23 03/12/23 03/12/23 Range/Units 14:20 14:20 14:20 MCV 100.3 H (80.0-100.0) fL Eosinophils # 0.8 H (0-0.7) k/uL Glucose 104 H (74-99) mg/dL AST 70 H (17-59) U/L ALT 60 H (4-49) U/L Lipase 2697 H (23-300) U/L Urine Protein 1+ H (Negative) Urine Ketones 4+ H (Negative) Urine Bilirubin 1+ H (Negative) Urine Mucus Many H (None) /hpf Thrombosis Risk Factor Assmnt - Choose All That Apply Any of the Below Risk Factors Present?: No Other Risk Factors: No Thrombosis Risk Factor Assessment Level: Very Low Risk
[2023-03-13] MEDS: MAGNESIUM SULFATE-D5W PMX 1 GM in DEXTROSE/WATER 1 100ML.BAG IVPB SCH ×3 (13:33→15:40)
[2023-03-13] MEDS: SYMBICORT 80-4.5 MCG INHALER INHALATION SCH (20:28)
[2023-03-14] MEDS: SODIUM CHLORIDE 0.9% 1,000 ML IV SCH (01:32)
[2023-03-14] MEDS: MORPHINE SULFATE 4 MG/ML SYRINGE IV PRN ×3 (04:13→12:18)
[2023-03-14 08:20] VITALS: BP 150/102; PULSE 87; RESP 16; TEMP 98.2
[2023-03-14] MEDS: SYMBICORT 80-4.5 MCG INHALER INHALATION SCH (08:25)
[2023-03-14] MEDS: PANTOPRAZOLE 40 MG/10 ML VIAL IVP SCH (08:37)
[2023-03-14] MEDS: THIAMINE 100 MG TAB PO SCH (08:37)
--- NOTE | 2023-03-15 21:53 | P.DS ---
Providers Date of admission: 03/12/23 16:53 Attending physician: Pedro Garcias MD Primary care physician: Stated None Hospital Course: Final Diagnosis -Alcoholic pancreatitis -Elevated LFT's consistent with alcohol hepatitis -Chronic alcohol abuse -Nicotine use: Counseling was provided -Hypertension related to pain Full Code Discharge Disposition Patient is stable for discharge home. Abdominal pain has improved patient no longer has epigastric pain. Patient has been counseled extensively on alcohol and smoking cessation. Patient is discharged on oral protonix BID for 1 week and transition to oral protonix daily. Patient does not currently have a PCP and r ecommending to establish care on discharge. Patient will also be discharged on thiamine daily. Hospital Course Patient is a 37 year old male male came in with complaints of epigastric abdominal pain found to have acute pancreatitis, patient also has elevated LFTs consistent with alcoholic hepatitis. Patient doesn't drink excess alcohol. Patient used to drink a lot in the past had multiple episodes of pancreatitis in the past. Patient's serum sodium is 134. Ultrasound of the abdomen did not show any gallstones but did show fatty liver. Patient the pain is sharp epigastric radiate to the back 10 x 10 in severity. Patient was admitted for pain management and hydration. Patient was also given clear liquid diet. Patients abdominal pain improved and patient tolerated advanced diet. Patient denies shortness of breath, denies chest pain, no nausea vomiting or diarrhea. Patient will be discharged home and recommended to establish care with a PCP. Please see medication reconciliation for a list of current medication. Thank you for allowing us to participate in the care of this patient. The impression and plan of care has been dictated by Nurse Aaron Melendez ctitioner as directed. Dr. Chen MD I have performed a history and physical examination and medical decision making of this patient, discussed the same with the dictator, and agree with the dictat ors assessment and plan as written, documented as a scribe. Based on total visit time, I have performed more than 50% of this visit. Patient Condition at Discharge: Stable Plan - Discharge Summary Discharge Rx Participant: Yes New Discharge Prescriptions: New Pantoprazole [Protonix] 40 mg PO DAILY #30 tab Thiamine [Vitamin B-1] 100 mg PO DAILY #30 tab HYDROcodone/APAP 5-325MG [[place] 5-325] 1 tab PO Q8HR PRN 3 Days #9 tab PRN Reason: Pain Discharge Medication List HYDROcodone/APAP 5-325MG [[place] 5-325] 1 tab PO Q8HR PRN 3 Days #9 tab 03/14/23 [Rx] Pantoprazole [Protonix] 40 mg PO DAILY #30 tab 03/14/23 [Rx] Thiamine [Vitamin B-1] 100 mg PO DAILY #30 tab 03/14/23 [Rx] Follow up Appointment(s)/Referral(s): None,Stated [Primary Care Provider] - 1-2 days Alecia Martin MD [STAFF PHYSICIAN] - 1 Week Ambulatory/Diagnostic Orders: Amylase [LAB.AMB] Time Frame: 3 Days, Location: None Selected Comprehensive Metabolic Panel [LAB.AMB] Location: None Selected Patient Instructions/Handouts: Pancreatitis (DC) Activity/Diet/Wound Care/Special Instructions: Need to establish care with a primary care provider recommend to see Dr. Alecia Martin, can choose another provider. Need to follow up labs in 1 week outpatient. Recommend total alcohol cessation. Discharge/Stand Alone Forms: AA Meetings [facility] Discharge Disposition: HOME SELF-CARE
== END 2023-03-14 15:24 | disposition home or self-care (01) ==
LOC: EC 13:41 → 6NMEDSUR 16:53
PROVIDERS: ADMIT Internal Medicine; ATTEND Internal Medicine
DX: K85.20 Alcohol induced acute pancreatitis without necrosis or infection (principal); E87.1 Hypo-osmolality and hyponatremia; F10.10 Alcohol abuse, uncomplicated; R79.89 Other specified abnormal findings of blood chemistry; E87.70 Fluid overload, unspecified; E83.42 Hypomagnesemia; K76.0 Fatty (change of) liver, not elsewhere classified; I10 Essential (primary) hypertension; F17.200 Nicotine dependence, unspecified, uncomplicated; Z20.822 Contact with and (suspected) exposure to COVID-19; Z87.442 Personal history of urinary calculi; Z87.19 Personal history of other diseases of the digestive system; Z71.41 Alcohol abuse counseling and surveillance of alcoholic; Z71.6 Tobacco abuse counseling
CPT/HCPCS: 96376 ×3; 96361 ×3; 96365; 96366; 96375 ×2; 96372; 99285; 36415; 94640 ×2; 93005; 80053; 82150; 83605; 83690; 83735; 85025; 81001; 87636; 71046; 76705; G0378 ×3; J2270 ×3; J3411; J2405; J3475; J1885; C9113 ×2

== ENCOUNTER 2023-05-23 06:13 | Inpatient (IN) | payer OTHER ==
[2023-05-23] MEDS ORDERED: ONDANSETRON 4 MG/2 ML VIAL IVP STA (06:33)
[2023-05-23] MEDS ORDERED: SODIUM CHLORIDE 0.9% 2,000 ML IV STA (06:33)
[2023-05-23] MEDS ORDERED: HYDROmorphone 0.5 MG/0.5 ML SYRINGE IVP STA ×2 (06:33→08:12)
--- NOTE | 2023-05-23 06:36 | ED ---
Abdominal Pain HPI - General Chief Complaint: Abdominal Pain Stated Complaint: sob, back pain Time Seen by Provider: 05/23/23 06:19 Source: patient, RN notes reviewed Mode of arrival: ambulatory Limitations: no limitations - History of Present Illness Initial Comments: 38-year-old male presents emergency Department chief complaint of abdominal pain. Patient states that it started tonight. Patient has a history of pancreatitis and states feels very similar. Patient does admit to nausea vomiting states pain is quite diffuse in his abdomen. He does admit that this is from alcohol and he has recently drank. Patient denies any melanotic stools denies any hematochezia or hematemesis or copremesis. Denies fever. Patient has chest pain or shortness breath. Patient does admit that he's had a partial nephrectomy, appendectomy - Related Data Previous Rx's Medication Instructions Recorded HYDROcodone/APAP 5-325MG [[place] 1 tab PO Q8HR PRN 3 Days #9 tab 03/14/23 5-325] Pantoprazole [Protonix] 40 mg PO DAILY #30 tab 03/14/23 Thiamine [Vitamin B-1] 100 mg PO DAILY #30 tab 03/14/23 Allergies Allergy/AdvReac Type Severity Reaction Status Date / Time No Known Allergies Allergy Verified 05/23/23 06:28 Review of Systems ROS Statement: Those systems with pertinent positive or pertinent negative responses have been documented in the HPI. ROS Other: All systems not noted in ROS Statement are negative. Past Medical History Additional Past Medical History / Comment(s): Pancreatitis, kidney stone History of Any Multi-Drug Resistant Organisms: None Reported Past Surgical History: No Surgical Hx Reported Past Anesthesia/Blood Transfusion Reactions: No Reported Reaction Past Psychological History: ADD/ADHD Smoking Status: Current every day smoker Past Alcohol Use History: Daily Past Drug Use History: Marijuana General Exam Limitations: no limitations General appearance: alert, in no apparent distress Head exam: Present: atraumatic, normocephalic, normal inspection Eye exam: Present: normal appearance, PERRL, EOMI. Absent: scleral icterus, conjunctival injection, periorbital swelling ENT exam: Present: normal exam, normal oropharynx, mucous membranes moist Neck exam: Present: normal inspection, full ROM. Absent: tenderness, meningismus, lymphadenopathy Respiratory exam: Present: normal lung sounds bilaterally. Absent: respiratory distress, wheezes, rales, rhonchi, stridor Cardiovascular Exam: Present: normal rhythm, tachycardia, normal heart sounds. Absent: systolic murmur, diastolic murmur, rubs, gallop, clicks GI/Abdominal exam: Present: soft, normal bowel sounds. Absent: distended, tenderness, guarding, rebound, rigid Back exam: Absent: CVA tenderness (R), CVA tenderness (L) Neurological exam: Present: alert, oriented X3 Course Vital Signs 05/23/23 05/23/23 06:26 07:00 Temperature 98.5 F Pulse Rate 113 H Respiratory 18 16 Rate Blood Pressure 128/92 120/91 O2 Sat by Pulse 97 97 Oximetry Medical Decision Making - Medical Decision Making Was pt. sent in by a medical professional or institution (, PA, SILVICULTURE PROFESSOR, urgent care, hospital, or detention...) When possible be specific @ -No Did you speak to anyone other than the patient for history (EMS, parent, family, police, friend...)? What history was obtained from this source @ -No Did you review nursing and triage notes (agree or disagree)? Why? @ -I reviewed and agree with nursing and triage notes Were old charts reviewed (outside hosp., previous admission, EMS record, old EKG, old radiological studies, urgent care reports/EKG's, detention records)? Report findings @ -No old charts were reviewed Differential Diagnosis (chest pain, altered mental status, abdominal pain women, abdominal pain men, vaginal bleeding, weakness, fever, dyspnea, syncope, headache, dizziness, GI bleed, back pain, seizure, CVA, palpatations, mental health, musculoskeletal)? @ -Differential Abdominal Pain Men: Appendicitis, cholecystitis, diverticulosis, ischemic bowel, pancreatitis, hepatitis, UTI, gastroenteritis, AAA, incarcerated hernia, bowel obstruction, constipation, inflammatory bowel, hepatitis, peptic ulcer disease, splenic infarction, perforated viscus, testicular torsion, this is not meant to be an all-inclusive listable EKG interpreted by me (3pts min.). @ -None X-rays interpreted by me (1pt min.). @ -None done CT interpreted by me (1pt min.). @ -None done U/S interpreted by me (1pt. min.). @ -None done What testing was considered but not performed or refused? (CT, X-rays, U/S, labs)? Why? @ -None What meds were considered but not given or refused? Why? @ -None Did you discuss the management of the patient with other professionals ( professionals i.e. , PA, SILVICULTURE PROFESSOR, lab, RT, psych nurse, director of social services, sail repair person, teacher, first officer, social work case manager)? Give summary @ -[This was discuss with sound provider for admission given acute pancreatitis Was smoking cessation discussed for >3mins.? @ -No Was critical care preformed (if so, how long)? @ -No Were there social determinants of health that impacted care today? How? (Homelessness, low income, unemployed, alcoholism, drug addiction, transportation, low edu. Level, literacy, decrease access to med. care, senior care, rehab)? @ -No Was there de-escalation of care discussed even if they declined (Discuss DNR or withdrawal of care, Hospice)? DNR status @ -No What co-morbidities impacted this encounter? (DM, HTN, Smoking, COPD, CAD, Cancer, CVA, ARF, Chemo, Hep., AIDS, mental health diagnosis, sleep apnea, morbid obesity)? @ -Alcohol abuse, pancreatitis Was patient admitted / discharged? Hospital course, mention meds given and route, prescriptions, significant lab abnormalities, going to OR and other pertinent info. @ -Admitted patient's lipase is 1881 patient has acute pancreatitis from alcohol use. Patient was started on maintenance fluids, fluid bolus, pain meds and antiemetics. Patient was placed on alcohol withdrawal protocol including CIWA Undiagnosed new problem with uncertain prognosis? @ -No Drug Therapy requiring intensive monitoring for toxicity (Heparin, Nitro, Insulin, Cardizem)? @ -No Were any procedures done? @ -No Diagnosis/symptom? @ -Acute pancreatitis Acute, or Chronic, or Acute on Chronic? @ -Acute on chronic Uncomplicated (without systemic symptoms) or Complicated (systemic symptoms)? @ -Complicated Side effects of treatment? @ -No Exacerbation, Progression, or Severe Exacerbation? @ -No Poses a threat to life or bodily function? How? (Chest pain, [place], [place], pneumonia, PE, COPD, DKA, ARF, appy, cholecystitis, CVA, Diverticulitis, Homicidal, Suicidal, threat to staff... and all critical care pts) @ -No - Lab Data Result diagrams: 05/23/23 06:47 05/23/23 06:47 Lab Results 05/23/23 05/23/23 05/23/23 Range/Units 06:47 06:47 07:17 WBC 8.3 (3.8-10.6) k/uL RBC 4.25 L (4.30-5.90) m/uL Hgb 15.1 (13.0-17.5) gm/dL Hct 42.3 (39.0-53.0) % MCV 99.6 (80.0-100.0) fL MCH 35.6 H (25.0-35.0) pg MCHC 35.8 (31.0-37.0) g/dL RDW 13.0 (11.5-15.5) % Plt Count 166 (150-450) k/uL MPV 7.6 Neutrophils % 50 % Lymphocytes % 31 % Monocytes % 4 % Eosinophils % 13 % Basophils % 0 % Neutrophils # 4.2 (1.3-7.7) k/uL Lymphocytes # 2.6 (1.0-4.8) k/uL Monocytes # 0.4 (0-1.0) k/uL Eosinophils # 1.1 H (0-0.7) k/uL Basophils # 0.0 (0-0.2) k/uL Sodium 138 (137-145) mmol/L Potassium 3.8 (3.5-5.1) mmol/L Chloride 103 (98-107) mmol/L Carbon Dioxide 23 (22-30) mmol/L Anion Gap 12 mmol/L BUN 6 L (9-20) mg/dL Creatinine 0.83 (0.66-1.25) mg/dL Est GFR (CKD-EPI)AfAm >90 (>60 ml/min/1.73 sqM) Est GFR (CKD-EPI)NonAf >90 (>60 ml/min/1.73 sqM) Glucose 104 H (74-99) mg/dL Calcium 9.2 (8.4-10.2) mg/dL Total Bilirubin 0.9 (0.2-1.3) mg/dL AST 44 (17-59) U/L ALT 35 (4-49) U/L Alkaline Phosphatase 79 (38-126) U/L Total Protein 7.2 (6.3-8.2) g/dL Albumin 4.3 (3.5-5.0) g/dL Amylase 104 (30-110) U/L Lipase 1881 H (23-300) U/L Urine Color Yellow Urine Appearance Cloudy (Clear) Urine pH 7.0 (5.0-8.0) Ur Specific [place] 1.008 (1.001-1.035) Urine Protein Trace H (Negative) Urine Glucose (UA) Negative (Negative) Urine Ketones Negative (Negative) Urine Blood Negative (Negative) Urine Nitrite Negative (Negative) Urine Bilirubin Negative (Negative) Urine Urobilinogen <2.0 (<2.0) mg/dL Ur Leukocyte Esterase Small H (Negative) Urine RBC 1 (0-5) /hpf Urine WBC 17 H (0-5) /hpf Ur Squamous Epith Cells <1 (0-4) /hpf Urine Bacteria Occasional H (None) /hpf Hyaline Casts 1 (0-2) /lpf Urine Mucus Occasional H (None) /hpf Disposition Clinical Impression: Acute pancreatitis Disposition: ADMITTED IP TO THIS [facility] Condition: Fair Referrals: None,Stated [Primary Care Provider] - 1-2 days Time of Disposition: 08:19
[2023-05-23 07:03] LABS: Basophils % (A) 0 %; Eosinophils # (A) 1.1 k/uL (0-0.7); Eosinophils % (A) 13 %; HCT 42.3 % (39.0-53.0); HGB 15.1 gm/dL (13.0-17.5); Lymphocytes # (A) 2.6 k/uL (1.0-4.8); Lymphocytes % (A) 31 %; MCH 35.6 pg (25.0-35.0); MCHC 35.8 g/dL (31.0-37.0); MCV 99.6 fL (80.0-100.0); Mean Platelet Volume 7.6; Monocytes # (A) 0.4 k/uL (0-1.0); Monocytes % (A) 4 %; Neutrophils # (A) 4.2 k/uL (1.3-7.7); Neutrophils % (A) 50 %; Platelet Count 166 k/uL (150-450); RBC 4.25 m/uL (4.30-5.90); WBC 8.3 k/uL (3.8-10.6)
[2023-05-23 07:06] LABS: ALT 35 U/L (4-49); AST 44 U/L (17-59); African American GFR (CKD) >90 (>60 ml/min/1.73 sqM); Albumin 4.3 g/dL (3.5-5.0); Alkaline Phosphatase 79 U/L (38-126); Amylase 104 U/L (30-110); Anion Gap 12 mmol/L; Blood Urea Nitrogen 6 mg/dL (9-20); Calcium 9.2 mg/dL (8.4-10.2); Carbon Dioxide 23 mmol/L (22-30); Chloride 103 mmol/L (98-107); Glucose 104 mg/dL (74-99); Lipase 1881 U/L (23-300); Non-African American GFR(CKD) >90 (>60 ml/min/1.73 sqM); Potassium 3.8 mmol/L (3.5-5.1); Sodium 138 mmol/L (137-145); Total Bilirubin 0.9 mg/dL (0.2-1.3); Total Protein 7.2 g/dL (6.3-8.2)
[2023-05-23 08:01] LABS: Appearance,Urine Cloudy (Clear); Bacteria,Urine Occasional /hpf; Bilirubin,Urine Negative (Negative); Blood,Urine Negative (Negative); Color,Urine Yellow; Glucose,Urine (UA) Negative (Negative); Hyaline Casts,Urine 1 /lpf (0-2); Ketones,Urine Negative (Negative); Leukocyte Esterase,Urine Small (Negative); Mucus,Urine Occasional /hpf; Nitrite,Urine Negative (Negative); Protein,Urine Trace (Negative); RBC,Urine 1 /hpf (0-5); Specific Gravity,Urine 1.008 (1.001-1.035); Squamous Epithelial Cell,Urine <1 /hpf (0-4); Urobilinogen,Urine <2.0 mg/dL (<2.0); WBC,Urine 17 /hpf (0-5)
[2023-05-23] MEDS ORDERED: NALOXONE 0.4 MG/ML 1 ML VIAL IV PRN (08:15)
[2023-05-23] MEDS ORDERED: LORazepam 2 MG/ML INJ IV PRN ×3 (08:17)
[2023-05-23] MEDS: HYDROmorphone 0.5 MG/0.5 ML SYRINGE IVP PRN (10:50)
[2023-05-23] MEDS: PANTOPRAZOLE 40 MG/10 ML VIAL IV SCH (10:50)
[2023-05-23] MEDS: SODIUM CHLORIDE 0.9% 1,000 ML IV SCH ×2 (10:50→19:22)
--- NOTE | 2023-05-23 13:02 | P.HPIM ---
History of Present Illness H&P Date: 05/23/23 History of Presenting Illness: Patient is a pleasant 38-year-old male with a past medical history of pancreatitis, kidney stones, partial nephrectomy, and appendectomy. He presented to the emergency department with a chief complaint of abdominal pain, nausea, and vomiting. Patient reported diffuse abdominal pain and states pain is similar to previous episodes of pancreatitis. Patient reports drinking approximately 1 pint of liquor daily for at least the past 11 years but does report history of drinking a lot more daily. Patient reports pancreatic episodes in the past secondary to alcohol use and patient did report drinking pretty heavily stating "I was drinking and again the pain started so I kept on Drinking trying to drink the pain away." States last drink was yesterday. Denies history of detox seizures. reports enumerous episodes of nausea and bilious vomiting. He denies experiencing any fevers, chills, diaphoresis, dizziness, lightheadedness, chest pain, palpitations, shortness of breath, hematemesis, constipation or diarrhea, melena, or hematochezia. Patient underwent full evaluation in the emergency department. Vital signs upon arrival showing blood pressure 128/92, heart rate 113, respiratory rate 18, temp 98.5F, and SpO2 of 97% on room air. Labs completed and reviewed. CBC unremarkable. BMP showing no significant abnormalities. Liver profile unremarkable. Lipase significantly elevated at 1881. Urinalysis negative for blood, protein, or concerns of infection. Discussed patient's history, physical exam findings, laboratory analysis in detail with the ED provider. Patient to be admitted under our services at this time. Review of systems: Pertinent positives and negatives as discussed in HPI, a complete review of systems was performed and all other systems are negative. Physical exam: Vital signs reviewed and stable. General: Nontoxic, no distress and appears stated age. Derm: Skin warm and dry, normal coloration for ethnicity. Head: Atraumatic, normocephalic and symmetric. Eyes: EOMs intact, no lid lag, and anicteric sclera Mouth: no lip lesions, mucus membranes moist Cardiovascular: regular rate and rhythm with normal S1S2, no murmur, positive posterior tibial pulses bilaterally, and cap refill < 2 seconds. Lungs: Respirations even, regular, and unlabored on room air. Lungs CTA bilaterally, no rhonchi, no rales, no wheezing, and no accessory muscle usage. Abdominal: soft, diffuse tenderness to palpation, no guarding, no appreciable organomegaly Ext: ROM intact. No gross muscle atrophy, no edema, no contractures Neuro: Speech clear, face symmetrical and CN II-XII grossly intact with no noted focal neuro deficits Psych: Alert and oriented to person, place, time, and situation. Appropriate and pleasant affect. Assessment and Plan of Care: Acute alcoholic pancreatitis Alcohol withdrawal and active alcoholic -Vital signs upon arrival showing blood pressure 128/92, heart rate 113, respiratory rate 18, temp 98.5F, and SpO2 of 97% on room air. -Labs completed and reviewed. CBC unremarkable. BMP showing no significant abnormalities. Liver profile unremarkable. Lipase significantly elevated at 1881. -Urinalysis negative for blood, protein, or concerns of infection. -Discussed patient's history, physical exam findings, laboratory analysis in detail with the ED provider. -Patient to be admitted to general medical observation unit with telemetry. -Vigorous IV fluid hydration with lactated Ringer's at 125 mL per hour and -Symptomatic care and pain management with Dilaudid 0.5 mg every 3 hours as needed for moderate pain and 1 mg every 3 hours as needed for severe pain. -Patient to be NPO with the exception of medications and ice chips. -Zofran as needed for nausea and vomiting. -GI prophylaxis with Protonix 40 mg IVP daily. -Order placed for monitoring of CIWA scores and patient to be medicated with Ativan 0.5 mg every 4 hours as needed for CIWA score of 4-5, Ativan 1 mg every 4 hours for CIWA score of 6-7, Ativan 2 mg every 3 hours CIWA score of 8-9, and Ativan 2 mg every 2 hours forr CIWA score of 10 or greater. -Continuous IV hydration. -Thiamine 100 mg twice a day -Multivitamin daily -Folate 1 mg daily -Seizure, fall, aspiration, and elopement precautions in place. -Continued close monitoring of electrolytes and replace as needed. -Telemetry monitoring. The patient is admitted with an anticipated greater than 2 midnight stay for evaluation of acute alcoholic pancreatitis CODE STATUS: Full code DVT prophylaxis: Heparin Discussed with: Patient, ED provider and RN Anticipated discharge date: Clinical course to determine Anticipated discharge place: Home Patient was seen independently by Nurse Practitioner. This document was prepared using [employer] dictation software. Please allow for errors in territory development manager while rare they do occur. I reviewed the documentation as provided by the CORINE above, who is the original author of this note. I agree with the documented assessment and plan, with the following changes: none Past Medical History Additional Past Medical History / Comment(s): Pancreatitis, kidney stone History of Any Multi-Drug Resistant Organisms: None Reported Past Surgical History: No Surgical Hx Reported Past Anesthesia/Blood Transfusion Reactions: No Reported Reaction Past Psychological History: ADD/ADHD Smoking Status: Current every day smoker Past Alcohol Use History: Daily Past Drug Use History: Marijuana Medications and Allergies Home Medications Medication Instructions Recorded Confirmed Type Pantoprazole [Protonix] 40 mg PO DAILY #30 tab 03/14/23 05/23/23 Rx Dextroamphetamine/Amphetamine 30 mg PO DAILY 05/23/23 05/23/23 History [Adderall Xr 30 mg Capsule] Dextroamphetamine/Amphetamine 10 mg PO DAILY PRN 05/23/23 05/23/23 History [Adderall] Loratadine [Claritin] 10 mg PO DAILY 05/23/23 05/23/23 History Allergies Allergy/AdvReac Type Severity Reaction Status Date / Time No Known Allergies Allergy Verified 05/23/23 10:25 Physical Exam Osteopathic Statement: *. No significant issues noted on an osteopathic structural exam other than those noted in the History and Physical/Consult. Vitals: Vital Signs Temp Pulse Resp BP Pulse Ox 05/23/23 08:13 85 18 124/95 100 05/23/23 07:00 16 120/91 97 05/23/23 06:26 98.5 F 113 H 18 128/92 97 Intake and Output 05/22/23 05/23/23 05/23/23 22:59 06:59 14:59 Other: Weight 65.771 kg Results CBC & Chem 7: 05/23/23 06:47 05/23/23 06:47 Labs: Abnormal Lab Results - Last 24 Hours (Table) 05/23/23 05/23/23 05/23/23 Range/Units 06:47 06:47 07:17 RBC 4.25 L (4.30-5.90) m/uL MCH 35.6 H (25.0-35.0) pg Eosinophils # 1.1 H (0-0.7) k/uL BUN 6 L (9-20) mg/dL Glucose 104 H (74-99) mg/dL Lipase 1881 H (23-300) U/L Urine Protein Trace H (Negative) Ur Leukocyte Esterase Small H (Negative) Urine WBC 17 H (0-5) /hpf Urine Bacteria Occasional H (None) /hpf Urine Mucus Occasional H (None) /hpf
[2023-05-23] MEDS: HYDROmorphone 1 MG/ML 1 ML SYRINGE IVP PRN ×3 (13:21→19:52)
[2023-05-23] MEDS: ONDANSETRON 4 MG/2 ML VIAL IVP PRN (19:52)
[2023-05-23] MEDS: LACTATED RINGERS 1,000 ML IV SCH (19:52)
[2023-05-24] MEDS: HYDROmorphone 1 MG/ML 1 ML SYRINGE IVP PRN ×8 (00:10→21:20)
[2023-05-24] MEDS: HEPARIN SODIUM,PORCINE 5,000 UNIT/ML 1 ML VIAL SQ SCH ×3 (00:12→15:37)
[2023-05-24] MEDS: LACTATED RINGERS 1,000 ML IV SCH ×2 (02:51→12:40)
[2023-05-24] MEDS: PANTOPRAZOLE 40 MG/10 ML VIAL IV SCH (09:02)
[2023-05-24] MEDS: THIAMINE 100 MG TAB PO SCH (09:03)
[2023-05-24] MEDS: FOLIC ACID 1 MG TAB PO SCH (09:03)
[2023-05-24] MEDS: MULTIVITAMINS, THERA 1 EACH TAB PO SCH (09:03)
[2023-05-24] MEDS ORDERED: IPRATROPIUM-ALBUTEROL 3 ML NEB INHALATION PRN (16:39)
[2023-05-24] MEDS: ONDANSETRON 4 MG/2 ML VIAL IVP PRN (17:46)
--- NOTE | 2023-05-24 19:10 | P.PN ---
Subjective Progress Note Date: 05/24/23 Hospital course: Patient is a pleasant 38-year-old male with a past medical history of pancreatitis, kidney stones, partial nephrectomy, and appendectomy. He pres ented to the emergency department with a chief complaint of abdominal pain, nausea, and vomiting. Patient reported diffuse abdominal pain and states pain is similar to previous episodes of pancreatitis. Patient reports drinking approximately 1 pint of liquor daily for at least the past 11 years but does report history of drinking a lot more daily. Patient reports pancreatic episodes in the past secondary to alcohol use and patient did report drinking pretty heavily stating "I was drinking and again the pain started so I kept on Drinking trying to drink the pain away." States last drink was yesterday. Denies history of detox seizures. reports enumerous episodes of nausea and bilious vomiting. He denies experiencing any fevers, chills, diaphoresis, dizziness, lightheadedness, chest pain, palpitations, shortness of breath, hematemesis, constipation or diarrhea, melena, or hematochezia. Patient underwent full evaluation in the emergency department. Vital signs upon arrival showing blood pressure 128/92, heart rate 113, respiratory rate 18, temp 98.5F, and SpO2 of 97% on room air. Labs completed and reviewed. CBC unremarkable. BMP showing no significant abnormalities. Liver profile unremarkable. Lipase significantly elevated at 1881. Urinalysis negative for blood, protein, or concerns of infection. Discussed patient's history, physical exam findings, laboratory analysis in detail with the ED provider. Patient to be admitted under our services at this time. Review of systems: Pertinent positives and negatives as discussed in HPI, a complete review of systems was performed and all other systems are negative. Physical exam: Vital signs reviewed and stable. General: Nontoxic, no distress and appears stated age. Derm: Skin warm and dry, normal coloration for ethnicity. Head: Atraumatic, normocephalic and symmetric. Eyes: EOMs intact, no lid lag, and anicteric sclera Mouth: no lip lesions, mucus membranes moist Cardiovascular: regular rate and rhythm with normal S1S2, no murmur, positive posterior tibial pulses bilaterally, and cap refill < 2 seconds. Lungs: Respirations even, regular, and unlabored on room air. Lungs CTA bilaterally, no rhonchi, no rales, no wheezing, and no accessory muscle usage. Abdominal: soft, diffuse tenderness to palpation, no guarding, no appreciable organomegaly Ext: ROM intact. No gross muscle atrophy, no edema, no contractures Neuro: Speech clear, face symmetrical and CN II-XII grossly intact with no noted focal neuro deficits Psych: Alert and oriented to person, place, time, and situation. Appropriate and pleasant affect. Assessment and Plan of Care: Acute alcoholic pancreatitis Alcohol withdrawal and active alcoholic -Continue with vigorous IV fluid hydration with lactated Ringer's at 125 mL per hour -Symptomatic care and pain management with Dilaudid 0.5 mg every 3 hours as needed for moderate pain and 1 mg every 3 hours as needed for severe pain. -Patient maycontinue with ice chips and we will increase to clear liquid diet as patient tolerates. -Zofran as needed for nausea and vomiting. -GI prophylaxis with Protonix 40 mg IVP daily. -Continue monitoring of CIWA scores and patient to be medicated with Ativan 0.5 mg every 4 hours as needed for CIWA score of 4-5, Ativan 1 mg every 4 hours for CIWA score of 6-7, Ativan 2 mg every 3 hours CIWA score of 8-9, and Ativan 2 mg every 2 hours forr CIWA score of 10 or greater. -Patient has had a total of 1 mg of Ativan over the past 24 hours with current CIWA score of 1 -Thiamine 100 mg twice a day -Multivitamin daily -Folate 1 mg daily -Seizure, fall, aspiration, and elopement precautions in place. -Continued close monitoring of electrolytes and replace as needed. -Telemetry monitoring. Data review: Vital signs reviewed. Blood pressure 158/54, heart rate 76, respiratory rate 16, temp 97.7F, and SpO2 of 93% on room air. Imaging review: No new imaging for review. CODE STATUS: Full code DVT prophylaxis: Heparin Discussed with: Patient and RN Anticipated discharge date: Clinical course to determine Anticipated discharge place: Home Patient was seen independently by Nurse Practitioner. This document was prepared using [employer] dictation software. Please allow for errors in glove stitcher while rare they do occur. I reviewed the documentation as provided by the CORINE above, who is the original author of this note. I agree with the documented assessment and plan, with the following changes: none Objective - Vital Signs Vital signs: Vital Signs Temp 97.7 F 05/24/23 07:57 Pulse 76 08/14/23 07:57 Resp 16 05/24/23 07:57 BP 158/54 05/24/23 07:57 Pulse Ox 93 L 05/24/23 07:57 FiO2 Intake & Output 05/23/23 05/24/23 05/24/23 18:59 06:59 18:59 Intake Total 0 Balance 0 Weight 65.771 kg Intake: Oral 0 Other: Voiding Method Toilet # Voids 1 2 - Labs CBC & Chem 7: 05/25/23 05:39 05/25/23 05:39
[2023-05-24] MEDS: IPRATROPIUM-ALBUTEROL 3 ML NEB INHALATION SCH (20:17)
[2023-05-25] MEDS: HYDROmorphone 1 MG/ML 1 ML SYRINGE IVP PRN ×8 (00:18→22:23)
[2023-05-25] MEDS: LACTATED RINGERS 1,000 ML IV SCH ×5 (00:18→22:23)
[2023-05-25] MEDS: HEPARIN SODIUM,PORCINE 5,000 UNIT/ML 1 ML VIAL SQ SCH ×3 (00:33→15:38)
[2023-05-25 06:28] LABS: ALT 27 U/L (4-49); AST 37 U/L (17-59); African American GFR (CKD) >90 (>60 ml/min/1.73 sqM); Albumin 3.1 g/dL (3.5-5.0); Albumin/Globulin Ratio 1.3; Alkaline Phosphatase 78 U/L (38-126); Anion Gap 4 mmol/L; Blood Urea Nitrogen 2 mg/dL (9-20); Calcium 8.1 mg/dL (8.4-10.2); Carbon Dioxide 28 mmol/L (22-30); Chloride 101 mmol/L (98-107); Globulin 2.3 g/dL; Glucose 98 mg/dL (74-99); Magnesium 1.6 mg/dL (1.6-2.3); Non-African American GFR(CKD) >90 (>60 ml/min/1.73 sqM); Potassium 3.7 mmol/L (3.5-5.1); Sodium 133 mmol/L (137-145); Total Bilirubin 0.7 mg/dL (0.2-1.3); Total Protein 5.4 g/dL (6.3-8.2)
[2023-05-25 06:45] LABS: Lipase 2738 U/L (23-300)
[2023-05-25] MEDS: IPRATROPIUM-ALBUTEROL 3 ML NEB INHALATION SCH ×3 (07:48→19:48)
[2023-05-25] MEDS: MULTIVITAMINS, THERA 1 EACH TAB PO SCH (09:06)
[2023-05-25] MEDS: PANTOPRAZOLE 40 MG/10 ML VIAL IV SCH (09:07)
[2023-05-25] MEDS: FOLIC ACID 1 MG TAB PO SCH (09:07)
[2023-05-25] MEDS: THIAMINE 100 MG TAB PO SCH (09:07)
[2023-05-25 09:25] LABS: HCT 36.4 % (39.6-50.0); HGB 12.7 d/dL (13.0-17.0); MCH 35.6 pg (27.0-32.0); MCHC 34.9 d/dL (32.0-37.0); Mean Platelet Volume 11.5 FL (9.5-12.2); NRBC Per 100 WBC 0 X 10*3/uL (0.00-0.01); Platelet Count 115 X 10*3/uL (140-440); RBC 3.57 X 10*6/uL (4.40-5.60); RDW 12.9 % (11.5-14.5); WBC 5.95 X 10*3/uL (4.50-10.00)
--- NOTE | 2023-05-25 11:15 | P.PN ---
Subjective Progress Note Date: 05/25/23 Hospital course: Patient is a pleasant 38-year-old male with a past medical history of pancreatitis, kidney stones, partial nephrectomy, and appendectomy. He pres ented to the emergency department with a chief complaint of abdominal pain, nausea, and vomiting. Patient reported diffuse abdominal pain and states pain is similar to previous episodes of pancreatitis. Patient reports drinking approximately 1 pint of liquor daily for at least the past 11 years but does report history of drinking a lot more daily. Patient reports pancreatic episodes in the past secondary to alcohol use and patient did report drinking pretty heavily stating "I was drinking and again the pain started so I kept on Drinking trying to drink the pain away." States last drink was yesterday. Denies history of detox seizures or experiencing bad DTs in the past. Patient underwent full evaluation in the emergency department. Vital signs upon arrival showing blood pressure 128/92, heart rate 113, respiratory rate 18, temp 98.5F, and SpO2 of 97% on room air. Labs completed and reviewed. CBC unremarkable. BMP showing no significant abnormalities. Liver profile unremarkable. Lipase significantly elevated at 1881. Urinalysis negative for blood, protein, or concerns of infection. Patient was admitted under our services. Physical exam: Patient seen and fully evaluated at bedside this morning. Initially patient was reporting yesterday that nausea and vomiting had improved and diet was advanced to clear liquids, however since advancement to clear liquids patient reporting worsening nausea, pain, and 1 episode of vomiting. Repeat morning labs revealed worsening of lipase from [id number]. Patient placed back on NPO diet with the exception of ice chips only, lactated ringers infusion increased to 150 mL per hour, and order placed for CT abdomen and pelvis. Vital signs reviewed and stable. General: Nontoxic, no distress and appears stated age. Derm: Skin warm and dry, normal coloration for ethnicity. Head: Atraumatic, normocephalic and symmetric. Eyes: EOMs intact, no lid lag, and anicteric sclera Mouth: no lip lesions, mucus membranes moist Cardiovascular: regular rate and rhythm with normal S1S2, no murmur, positive posterior tibial pulses bilaterally, and cap refill < 2 seconds. Lungs: Respirations even, regular, and unlabored on room air. Lungs CTA bilaterally, no rhonchi, no rales, no wheezing, and no accessory muscle usage. Abdominal: soft, diffuse tenderness to palpation, no guarding, no appreciable organomegaly Ext: ROM intact. No gross muscle atrophy, no edema, no contractures Neuro: Speech clear, face symmetrical and CN II-XII grossly intact with no noted focal neuro deficits Psych: Alert and oriented to person, place, time, and situation. Appropriate and pleasant affect. Assessment and Plan of Care: Acute alcoholic pancreatitis Alcohol withdrawal and active alcoholic -IV fluids initially running at 125 mL per hour and increase lactated Ringer's infusion to 150 mL's per hour at this time. -Patient with worsening pain, nausea, and vomiting. Did not tolerate clear liquid diet. -Diet decreased back down to NPO status with the exception of ice chips -Orders placed for CT abdomen and pelvis with IV contrast -Pending CT results, may consider consultation to broom machine operator if patient showing no improvement. -Continue with symptomatic care and pain management with Dilaudid 0.5 mg every 3 hours as needed for moderate pain and 1 mg every 3 hours as needed for severe pain. -Zofran as needed for nausea and vomiting. -GI prophylaxis with Protonix 40 mg IVP daily. -Continue monitoring of CIWA scores and patient to be medicated with Ativan 0.5 mg every 4 hours as needed for CIWA score of 4-5, Ativan 1 mg every 4 hours for CIWA score of 6-7, Ativan 2 mg every 3 hours CIWA score of 8-9, and Ativan 2 mg every 2 hours forr CIWA score of 10 or greater. -Patient has not required any Ativan over the past 24 hours with current CIWA score of 0. -Thiamine 100 mg twice a day -Multivitamin daily -Folate 1 mg daily -Seizure, fall, aspiration, and elopement precautions in place. -Continued close monitoring of electrolytes and replace as needed. -Telemetry monitoring. Data review: Vital signs reviewed. Blood pressure 121/80, heart rate 85, respiratory rate 20, temp 98.3F, and SpO2 of 95% on room air. Labs reviewed. CBC showing macrocytosis with MCV of 102, and bicytopenia with hemoglobin of 12.7 and platelet count of 115. BMP revealing hypernatremia with sodium of 133. Lipase increasing from previous 1881 up to 2738. Imaging review: No new imaging for review. order was placed for CT abdomen and pelvis with contrast. CODE STATUS: Full code DVT prophylaxis: Heparin Discussed with: Patient and RN Anticipated discharge date: Clinical course to determine Anticipated discharge place: Home Patient was seen independently by Nurse Practitioner. This document was prepared using [employer] dictation software. Please allow for errors in audit control clerk while rare they do occur. I reviewed the documentation as provided by the CORINE above, who is the original author of this note. I agree with the documented assessment and plan, with the following changes: none Objective - Vital Signs Vital signs: Vital Signs Temp 98.3 F 05/25/23 08:00 Pulse 80 05/25/23 08:01 Resp 20 05/25/23 08:00 BP 121/80 05/25/23 08:00 Pulse Ox 95 05/25/23 08:00 FiO2 Intake & Output 05/24/23 05/25/23 05/25/23 18:59 06:59 18:59 Intake Total 240 Output Total 1 Balance -1 240 Intake: Oral 240 Output: Emesis 1 Other: Voiding Method Toilet Toilet # Voids 2 1 - Labs CBC & Chem 7: 05/25/23 05:39 05/25/23 05:39 Labs: Abnormal Lab Results - Last 24 Hours (Table) 05/25/23 Range/Units 05:39 Sodium 133 L (137-145) mmol/L BUN 2 L (9-20) mg/dL Calcium 8.1 L (8.4-10.2) mg/dL Total Protein 5.4 L (6.3-8.2) g/dL Albumin 3.1 L (3.5-5.0) g/dL Lipase 2738 H (23-300) U/L
--- NOTE | 2023-05-25 12:28 | CT ---
EXAMINATION TYPE: CT abdomen pelvis w con CT DLP: 851 mGycm, Automated exposure control for dose reduction was used. DATE OF EXAM: 05/25/2023 12:12 PM COMPARISON: CT abdomen pelvis most recent from 10/10/2022 CLINICAL INDICATION:Male, 38 years old with history of Pancreatitis; abd pain TECHNIQUE: Axial CT of the abdomen and pelvis. Sagittal and coronal reformats were created on a [employer] workstation. Contrast used:100 mL of Isovue 300 with IV Contrast, (none if empty) Oral contrast used: without Oral Contrast (none if empty) FINDINGS: LOWER CHEST: Unremarkable ABDOMEN LIVER: Diffusely hypoattenuating parenchyma. GALLBLADDER AND BILE DUCTS: Unremarkable. PANCREAS: Fat stranding changes around the pancreas head and neck are noted. No organizing fluid blayne ection. The pancreatic parenchyma enhances rather uniformly. SPLEEN: Unremarkable. ADRENAL GLANDS: Unremarkable. KIDNEYS AND URETERS: No evidence of hydronephrosis or renal calculus. The ureters are unremarkable. PELVIS BLADDER: Unremarkable REPRODUCTIVE: Unremarkable. ABDOMEN & PELVIS STOMACH AND BOWEL: No evidence of bowel obstruction. PERITONEUM/RETROPERITONEUM: No evidence of pneumoperitoneum.Trace free fluid layering in the pelvis l ikely secondary to acute pancreatitis. VASCULATURE: No evidence of aortic aneurysm. MUSCULOSKELETAL: No acute osseous abnormalities LYMPH NODES: No gross evidence for lymphadenopathy. SOFT TISSUE/ABDOMINAL WALL: Unremarkable IMPRESSION: 1. Inflammation changes around the pancreatic head and neck which can be seen in setting of pancreat itis. Correlate with serum lipase. 2. Hepatic steatosis.
[2023-05-26] MEDS: HEPARIN SODIUM,PORCINE 5,000 UNIT/ML 1 ML VIAL SQ SCH ×3 (00:20→15:38)
[2023-05-26] MEDS: HYDROmorphone 1 MG/ML 1 ML SYRINGE IVP PRN ×5 (01:27→18:31)
[2023-05-26] MEDS: LACTATED RINGERS 1,000 ML IV SCH ×3 (04:57→18:30)
[2023-05-26] MEDS: PANTOPRAZOLE 40 MG/10 ML VIAL IV SCH (07:48)
[2023-05-26] MEDS: MULTIVITAMINS, THERA 1 EACH TAB PO SCH (07:49)
[2023-05-26] MEDS: FOLIC ACID 1 MG TAB PO SCH (07:49)
[2023-05-26] MEDS: THIAMINE 100 MG TAB PO SCH (07:49)
[2023-05-26] MEDS: IPRATROPIUM-ALBUTEROL 3 ML NEB INHALATION SCH (08:46)
[2023-05-26] MEDS: HYDROcodone/APAP 5-325MG 1 EACH TAB PO PRN ×3 (10:51→20:13)
--- NOTE | 2023-05-26 11:33 | P.PN ---
Subjective Progress Note Date: 05/26/23 Patient is a 38-year-old male with prior pancreatitis, nephrolithiasis, partial nephrectomy, appendectomy, and alcohol dependency who presented to the emergency room with abdominal pain, nausea, vomiting. In the ER he underwent an extensive evaluation. On arrival he was tachycardic with a pulse of 113. Initial labs were remarkable for a lipase of 1881, urinalysis was negative. He was diagnosed with acute pancreatitis. He was started on IV fluids, antiemetics, pain control. He was admitted for further monitoring. He continued on IV fluids and pain control. They did attempt to increase his diet to clear liquids. Worsening of his pain and he was taken back to nothing by mouth status. A CT abdomen and pelvis was completed which showed fat stranding around the pancreatic head consistent with pancreatitis and no organized fluid collection. Patient seen and examined at bedside. Feels less bloated than yesterday, pain is slowly improving. He is feeling slightly hungry and wants something with flavor. We discussed that when they increased his diet yesterday he had an increase in pain. He is okay with popsicles and small sips of juice we will try now. I also discussed with him starting [place] dose that he does not have as much rapid onset and offset of the IV Dilaudid and he is in agreement. Vital signs reviewed General: nontoxic, no distress, appears at stated age Cardiovascular: S1S2 reg, no murmur, positive posterior tibial pulse bilateral, Lungs: CTA bilateral, no rhonchi, no rales , no accessory muscle use Abdominal: soft, tender to palpation epigastric, no guarding, no appreciable organomegaly Ext: no gross muscle atrophy, no edema b/l lower extremities, no contractures Neuro: CN II-XI grossly intact, no focal neuro deficits Psych: Alert, oriented, appropriate affect Assessment/Plan: Acute pancreatitis Alcohol withdrawal alcoholic Anemia, dilutional Thrombocytopenia-Suspect alcohol related Hyponatremia, suspect secondary to pancreatitis -Continue with lactated Ringer's at 125 mL/h -Pain with Dilaudid 0.5-1 mg every 3 hours depending on pain scale, and [place] 5/325 every 4 hours as needed for pain. -Continue with folic acid 1 mg daily, thiamine 100 mg daily. Patient has not required any Ativan since 05/23 but will continue with the law -Discussed with patient will try popsicles and juice today and see how that goes, if he is tolerating that well we'll increase to a full liquid diet at dinn er -Patient is already asking to be discharged tomorrow -Alcohol cessation -Repeat CBC and CMP in a.m. prior to discharge. Imaging: CT abdomen and pelvis-fat stranding around the pancreatic head Data Review: Vitals reviewed T max Last 24 hours 98.6, blood pressures have been in the 130s, heart rate has been stable in the 80s to 90s -No new labs available for review DVT prophylaxis: Heparin Anticipated discharge date: in AM Anticipated discharge place: Home This dictation was prepared using [employer] voice recognition software. Though every attempt is made to correct errors during dictation some may still exist. Objective - Vital Signs Vital signs: Vital Signs Temp 98.6 F 05/26/23 07:34 Pulse 85 05/26/23 07:34 Resp 18 05/26/23 07:34 BP 134/91 05/26/23 07:34 Pulse Ox 98 05/26/23 07:34 FiO2 Intake & Output 05/25/23 05/26/23 05/26/23 18:59 06:59 18:59 Intake Total 1800 Balance 1800 Intake: Intake, IV Titration 1800 Amount Lactated Ringers 1,000 ml 1800 @ 150 mls/hr IV .[id number] [facility] Rx#:[id number] Other: Voiding Method Toilet Toilet # Voids 1 - Labs CBC & Chem 7: 05/25/23 05:39 05/25/23 05:39
[2023-05-27] MEDS: HYDROcodone/APAP 5-325MG 1 EACH TAB PO PRN ×4 (00:21→21:49)
[2023-05-27] MEDS: HEPARIN SODIUM,PORCINE 5,000 UNIT/ML 1 ML VIAL SQ SCH ×4 (00:21→23:11)
[2023-05-27] MEDS: LACTATED RINGERS 1,000 ML IV SCH ×3 (00:53→20:10)
[2023-05-27] MEDS: HYDROmorphone 1 MG/ML 1 ML SYRINGE IVP PRN ×5 (02:03→23:11)
[2023-05-27 06:08] LABS: HCT 39.4 % (39.0-53.0); HGB 13.3 gm/dL (13.0-17.5); MCH 34.6 pg (25.0-35.0); MCHC 33.8 g/dL (31.0-37.0); MCV 102.3 fL (80.0-100.0); Macrocytosis Slight; Mean Platelet Volume 8.6; Platelet Count 111 k/uL (150-450); RBC 3.85 m/uL (4.30-5.90); RDW 13.5 % (11.5-15.5); WBC 4.9 k/uL (3.8-10.6)
[2023-05-27 06:29] LABS: ALT 26 U/L (4-49); AST 37 U/L (17-59); African American GFR (CKD) >90 (>60 ml/min/1.73 sqM); Albumin 3.4 g/dL (3.5-5.0); Albumin/Globulin Ratio 1.3; Alkaline Phosphatase 79 U/L (38-126); Anion Gap 5 mmol/L; Blood Urea Nitrogen <2 mg/dL (9-20); Calcium 8.6 mg/dL (8.4-10.2); Carbon Dioxide 31 mmol/L (22-30); Chloride 99 mmol/L (98-107); Globulin 2.6 g/dL; Glucose 89 mg/dL (74-99); Non-African American GFR(CKD) >90 (>60 ml/min/1.73 sqM); Potassium 3.8 mmol/L (3.5-5.1); Sodium 135 mmol/L (137-145); Total Bilirubin 0.8 mg/dL (0.2-1.3)
[2023-05-27] MEDS: PANTOPRAZOLE 40 MG/10 ML VIAL IV SCH (07:40)
[2023-05-27] MEDS: FOLIC ACID 1 MG TAB PO SCH (07:41)
[2023-05-27] MEDS: THIAMINE 100 MG TAB PO SCH (07:41)
[2023-05-27] MEDS: HYDROmorphone 0.5 MG/0.5 ML SYRINGE IVP PRN (07:41)
[2023-05-27] MEDS: MULTIVITAMINS, THERA 1 EACH TAB PO SCH (07:41)
--- NOTE | 2023-05-27 15:48 | P.PN ---
Subjective Progress Note Date: 05/27/23 (delayed charting seen at 1030) Patient is a 38-year-old male with prior pancreatitis, nephrolithiasis, partial nephrectomy, appendectomy, and alcohol dependency who presented to the emergency room with abdominal pain, nausea, vomiting. In the ER he underwent an extensive evaluation. On arrival he was tachycardic with a pulse of 113. Initial labs were remarkable for a lipase of 1881, urinalysis was negative. He was diagnosed with acute pancreatitis. He was started on IV fluids, antiemetics, pain control. He was admitted for further monitoring. He continued on IV fluids and pain control. They did attempt to increase his diet to clear liquids. Worsening of his pain and he was taken back to nothing by mouth status. A CT abdomen and pelvis was completed which showed fat stranding around the pancreatic head consistent with pancreatitis and no organized fluid collection. He wanted to increase his diet on 05/26 and he tolerated juice and popsicles well. Patient seen and examined at bedside. Patient states that after eating (full liquids) this morning he had a significant increase in his abdominal discomfort. He does agree that his diet should be down titrated. He feels slightly worse today than yesterday. Vital signs reviewed General: nontoxic, no distress, appears at stated age Cardiovascular: S1S2 reg, no murmur, positive posterior tibial pulse bilateral, Lungs: CTA bilateral, no rhonchi, no rales , no accessory muscle use Abdominal: soft, + tender to palpation epigastric, no guarding, no appreciable organomegaly Ext: no gross muscle atrophy, no edema b/l lower extremities, no contractures Neuro: CN II-XI grossly intact, no focal neuro deficits Psych: Alert, oriented, appropriate affect Assessment/Plan: Acute pancreatitis Alcohol withdrawal alcoholic Anemia, dilutional Thrombocytopenia-Suspect alcohol related Hyponatremia, suspect secondary to pancreatitis -Continue with lactated Ringer's but decrease to 100 cc/hr - back to popsicles only and ice chips -Pain with Dilaudid 0.5-1 mg every 3 hours depending on pain scale, and [facility] 5/325 every 4 hours as needed for pain. -Continue with folic acid 1 mg daily, thiamine 100 mg daily. Patient has not required any Ativan since 05/23 but will continue with the law - consult GI -Alcohol cessation -Repeat CBC and CMP in a.m. Imaging: None new Data Review: VItal reviewed and Tmax in 24 hours 98.4, HR and BP stable Labs reviewed and remarkable for Plt 111 DVT prophylaxis: Heparin Anticipated discharge date: in AM Anticipated discharge place: Home This dictation was prepared using [employer] voice recognition software. Though every attempt is made to correct errors during dictation some may still exist. Objective - Vital Signs Vital signs: Vital Signs Temp 98.1 F 05/27/23 11:09 Pulse 70 05/27/23 11:09 Resp 18 05/27/23 11:09 BP 146/92 05/27/23 11:09 Pulse Ox 97 05/27/23 11:09 FiO2 Intake & Output 05/26/23 05/27/23 05/27/23 18:59 06:59 18:59 Intake Total 40 Balance 40 Intake: Oral 40 Other: Voiding Method Toilet Toilet # Voids 3 1 - Labs CBC & Chem 7: 05/27/23 05:23 05/27/23 05:23 Labs: Abnormal Lab Results - Last 24 Hours (Table) 05/27/23 05/27/23 Range/Units 05:23 05:23 RBC 3.85 L (4.30-5.90) m/uL MCV 102.3 H (80.0-100.0) fL Plt Count 111 L (150-450) k/uL Sodium 135 L (137-145) mmol/L Carbon Dioxide 31 H (22-30) mmol/L BUN <2 L (9-20) mg/dL Creatinine 0.62 L (0.66-1.25) mg/dL Total Protein 6.0 L (6.3-8.2) g/dL Albumin 3.4 L (3.5-5.0) g/dL
--- NOTE | 2023-05-27 15:53 | P.CONS ---
History of Present Illness - Reason for Consult Consult date: 05/27/23 Pancreatitis Requesting physician: Yuli Salazar - Chief Complaint Abdominal pain/back pain - History of Present Illness This a 38-year-old male with greater than a 10 year history of alcohol abuse who continues to drink 1 pint per day. Patient states he has had a history of pancreatitis at least 3-4 other times related to alcohol. Patient presented to the emergency department 4 days ago with complaints of epigastric pain radiating to his back. He continues to have pain. States it waxes and wanes. It's a 7 out of 10 at times. Pain persists with trying to eat. Gastroenterology was consulted for acute pancreatitis. CT abdomen and pelvis reports inflammation changes around the pancreatic head and neck which can be seen in setting of pancreatitis. Correlate with serum lipase. Hepatic steatosis. Patient denies any nausea or vomiting at this time. He's been afebrile. He remains on IV fluids. Still getting pain medication as needed. Labs WBC 4.9 hemoglobin 13.3 hematocrit 39 platelet count 111,000 sodium 135 potassium 3.8 BUN less than 2 creatinine 0.6 total bilirubin 0.8 AST 37 ALT 26 alkaline phosphatase 79 lipase 2738 Review of Systems REVIEW OF SYSTEMS: CARDIOPULMONARY: No chest pain or shortness of breath. Gastrointestinal: Epigastric pain radiating to his back. No nausea or vomiting. No hematemesis, coffee-ground emesis. No rectal bleeding, or melena. GENITOURINARY: No dysuria or hematuria. MUSCULOSKELETAL: Reports normal range of motion., Joint pain. SKIN: No rashes. No jaundice. ENDOCRINE: No chills, fevers. No excessive weight gain or loss. No polydipsia or polyuria. PSYCHIATRIC: Alcohol abuse. NEUROLOGY: No change in mental status. Denies dizziness, headache. ENT: Vision unremarkable. CONSTITUTIONAL: No recent weight loss. No fever, chills, night sweats. Past Medical History Additional Past Medical History / Comment(s): Pancreatitis, kidney stone History of Any Multi-Drug Resistant Organisms: None Reported Past Surgical History: No Surgical Hx Reported Additional Past Surgical History / Comment(s): left partial nephrectomy Past Anesthesia/Blood Transfusion Reactions: No Reported Reaction Past Psychological History: ADD/ADHD Smoking Status: Current every day smoker Past Alcohol Use History: Daily Past Drug Use History: Marijuana Medications and Allergies Home Medications Medication Instructions Recorded Confirmed Type Pantoprazole [Protonix] 40 mg PO DAILY #30 tab 03/14/23 05/23/23 Rx Dextroamphetamine/Amphetamine 30 mg PO DAILY 05/23/23 05/23/23 History [Adderall Xr 30 mg Capsule] Dextroamphetamine/Amphetamine 10 mg PO DAILY PRN 05/23/23 05/23/23 History [Adderall] Loratadine [Claritin] 10 mg PO DAILY 05/23/23 05/23/23 History Allergies Allergy/AdvReac Type Severity Reaction Status Date / Time No Known Allergies Allergy Verified 05/23/23 10:25 Physical Exam Vitals: Vital Signs Temp Pulse Resp BP Pulse Ox 05/27/23 11:09 98.1 F 70 18 146/92 97 05/27/23 07:07 98.2 F 70 18 130/87 99 05/27/23 02:00 97.9 F 72 16 147/94 99 05/26/23 20:00 98.4 F 87 16 137/94 97 Intake and Output 05/26/23 05/27/23 05/27/23 22:59 06:59 14:59 Intake Total 40 Balance 40 Intake: Oral 40 Other: Voiding Method Toilet Toilet # Voids 1 1 General appearance: The patient is alert, oriented, appears in no acute distress. HET: Head is normocephalic and atraumatic. Conjunctiva pink. Sclera anicteric. Neck: Supple without lymphadenopathy. Trachea midline. Heart: S1 S2. Regular rate and rhythm. Lungs: Clear to auscultation. Abdomen: Soft, epigastric tenderness, nondistended with bowel sounds. No guarding or rigidity. Skin: No rashes. No jaundice. Extremities: Normal skin color and turgor. No pedal edema. Neurological: No focal deficits. Alert and oriented x3. Results CBC & Chem 7: 05/27/23 05:23 05/27/23 05:23 Labs: Abnormal Lab Results - Last 24 Hours (Table) 05/27/23 05/27/23 Range/Units 05: 05:23 RBC 3.85 L (4.30-5.90) m/uL MCV 102.3 H (80.0-100.0) fL Plt Count 111 L (150-450) k/uL Sodium 135 L (137-145) mmol/L Carbon Dioxide 31 H (22-30) mmol/L BUN <2 L (9-20) mg/dL Creatinine 0.62 L (0.66-1.25) mg/dL Total Protein 6.0 L (6.3-8.2) g/dL Albumin 3.4 L (3.5-5.0) g/dL CT scan - abdomen: report reviewed (See HPI for details) Assessment and Plan (1) Acute pancreatitis Narrative/Plan: 38-year-old with a history of chronic alcohol abuse presents with epigastric and back pain. The patient had elevated lipase of 1881 when he came into the hospital 4 days ago. He continues to have pain. CT abdomen and pelvis shows acute uncomplicated pancreatitis. Patient continues to have pain, he is having difficulty advancing his diet. Repeat lipase 2738. Again this is all likely just acute alcoholic pancreatitis, uncomplicated. Explained to patient some times it takes just longer for that pancreas to heal. Recommend alcohol abstinence. Advance diet as tolerated. No further workup indicated. Current Visit: Yes Status: Acute Code(s): K85.90 - ACUTE PANCREATITIS WITHOUT NECROSIS OR INFECTION, UNSP SNOMED Code(s): 621538965 Plan: 1. Continue symptomatic and supportive care 2. Continue pain medication as needed 3. Antiemetics as needed 4. Protonix 40 mg daily 5. Recommend alcohol abstinence 6. Advance diet as tolerated 7. No further workup indicated 8. Encourage ambulation 9. Anticipate discharge in the next 24-48 hours Thank you for this consultation, we will continue to follow. Dr. Norma De La Paz I agree with the dictator's note, documented as a scribe by Melissa Hendrickson.
[2023-05-28] MEDS: HYDROmorphone 1 MG/ML 1 ML SYRINGE IVP PRN ×3 (01:33→07:59)
[2023-05-28] MEDS: HYDROcodone/APAP 5-325MG 1 EACH TAB PO PRN ×4 (02:07→14:28)
[2023-05-28] MEDS: LACTATED RINGERS 1,000 ML IV SCH (04:31)
[2023-05-28 06:57] LABS: HCT 39.1 % (39.0-53.0); HGB 13.8 gm/dL (13.0-17.5); MCH 35.5 pg (25.0-35.0); MCHC 35.3 g/dL (31.0-37.0); MCV 100.6 fL (80.0-100.0); Macrocytosis Slight; Mean Platelet Volume 8.8; Platelet Count 119 k/uL (150-450); RBC 3.89 m/uL (4.30-5.90); RDW 13.5 % (11.5-15.5); WBC 5.3 k/uL (3.8-10.6)
[2023-05-28 07:07] LABS: ALT 27 U/L (4-49); AST 42 U/L (17-59); African American GFR (CKD) >90 (>60 ml/min/1.73 sqM); Albumin 3.4 g/dL (3.5-5.0); Albumin/Globulin Ratio 1.3; Alkaline Phosphatase 73 U/L (38-126); Anion Gap 2 mmol/L; Blood Urea Nitrogen 3 mg/dL (9-20); Calcium 8.6 mg/dL (8.4-10.2); Carbon Dioxide 32 mmol/L (22-30); Chloride 102 mmol/L (98-107); Globulin 2.6 g/dL; Glucose 92 mg/dL (74-99); Non-African American GFR(CKD) >90 (>60 ml/min/1.73 sqM); Potassium 3.5 mmol/L (3.5-5.1); Sodium 136 mmol/L (137-145); Total Bilirubin 0.6 mg/dL (0.2-1.3)
[2023-05-28] MEDS: THIAMINE 100 MG TAB PO SCH (07:58)
[2023-05-28] MEDS: MULTIVITAMINS, THERA 1 EACH TAB PO SCH (07:58)
[2023-05-28] MEDS: HEPARIN SODIUM,PORCINE 5,000 UNIT/ML 1 ML VIAL SQ SCH (07:58)
[2023-05-28] MEDS: FOLIC ACID 1 MG TAB PO SCH (07:58)
[2023-05-28] MEDS: PANTOPRAZOLE 40 MG/10 ML VIAL IV SCH (07:59)
[2023-05-28 08:49] VITALS: BP 130/89; PULSE 72; RESP 16; TEMP 98.4
--- NOTE | 2023-05-28 09:12 | P.PN ---
Subjective Progress Note Date: 05/28/23 Principal diagnosis: Pancreatitis This a 38-year-old male with greater than a 10 year history of alcohol abuse who continues to drink 1 pint per day. Patient states he has had a history of pancreatitis at least 3-4 other times related to alcohol. Patient presented to the emergency department 4 days ago with complaints of epigastric pain radiating to his back. He continues to have pain. States it waxes and wanes. It's a 7 out of 10 at times. Pain persists with trying to eat. Gastroenterology was consulted for acute pancreatitis. CT abdomen and pelvis reports inflammation changes around the pancreatic head and neck which can be seen in setting of pancreatitis. Correlate with serum lipase. Hepatic steatosis. Patient denies any nausea or vomiting at this time. He's been afebrile. He remains on IV fluids. Still getting pain medication as needed. Labs WBC 4.9 hemoglobin 13.3 hematocrit 39 platelet count 111,000 sodium 135 potassium 3.8 BUN less than 2 creatinine 0.6 total bilirubin 0.8 AST 37 ALT 26 alkaline phosphatase 79 lipase 2738 05/28/2023 Patient seen and examined today as a follow-up. He states that he is feeling much better. Abdominal pain is improved. However he states he just received pain medication at 6 AM. He is verbalizing wanting to go home. Denies any nausea or vomiting. Has been tolerating his face chips, popsicles. Would like to advance diet. Objective - Vital Signs Vital signs: Vital Signs Temp 98.7 F 05/28/23 01:14 Pulse 74 05/28/23 01:14 Resp 18 05/28/23 01:14 BP 137/93 05/28/23 01:14 Pulse Ox 98 05/28/23 01:14 FiO2 Intake & Output 05/27/23 05/28/23 05/28/23 18:59 06:59 18:59 Intake Total 400 Balance 400 Intake: Oral 400 Other: Voiding Method Toilet Toilet # Voids 3 6 - Exam General appearance: The patient is alert, oriented, appears in no acute distress. HET: Head is normocephalic and atraumatic. Conjunctiva pink. Sclera anicteric. Neck: Supple without lymphadenopathy. Abdomen: Soft, nontender, nondistended with bowel sounds. No guarding or rigidity. Extremities: Normal skin color and turgor. No pedal edema Skin: No rashes, no jaundice Neurological: No focal deficits. Alert and oriented. - Labs CBC & Chem 7: 05/28/23 06:27 05/28/23 06:27 Labs: Abnormal Lab Results - Last 24 Hours (Table) 05/28/23 Range/Units 06:27 RBC 3.89 L (4.30-5.90) m/uL MCV 100.6 H (80.0-100.0) fL MCH 35.5 H (25.0-35.0) pg Plt Count 119 L (150-450) k/uL Assessment and Plan (1) Acute pancreatitis Narrative/Plan: 38-year-old with a history of chronic alcohol abuse presents with epigastric and back pain. The patient had elevated lipase of 1881 when he came into the hospital 4 days ago. He continues to have pain. CT abdomen and pelvis shows acute uncomplicated pancreatitis. Patient continues to have pain, he is having difficulty advancing his diet. Repeat lipase 2738. Again this is all likely just acute alcoholic pancreatitis, uncomplicated. Explained to patient sometimes it takes just longer for that pancreas to heal. Recommend alcohol abstinence. Advance diet as tolerated. No further workup indicated. Current Visit: Yes Status: Acute Code(s): K85.90 - ACUTE PANCREATITIS WITHOUT NECROSIS OR INFECTION, UNSP SNOMED Code(s): 748840048 Plan: 1. Continue symptomatic and supportive care 2. Continue pain medication as needed 3. Antiemetics as needed 4. Protonix 40 mg daily 5. Recommend alcohol abstinence 6. Advance to clear liquid diet for breakfast, if tolerates can advance to a low-fat diet for lunch 7. No further workup indicated 8. Encourage ambulation 9. If patient is able to advance diet and pain remains controlled. Patient may be cleared from gastroenterology for discharge. Thank you for allowing us to participate in the care of the patient, the GI service will sign off, gastroenterology will not be available at the hospital this weekend and through next week. If further evaluation by gastroenterology i s required the patient will need transfer as per the primary team's discretion. Dr. Norma De La Paz I agree with the dictator's note, documented as a scribe by Melissa Hendrickson.
[2023-05-28] MEDS: HYDROmorphone 0.5 MG/0.5 ML SYRINGE IVP PRN (11:52)
[2023-05-28 12:14] VITALS: BMI 23.3
--- NOTE | 2023-05-28 13:45 | P.DS ---
Providers Date of admission: 05/23/23 08:20 Expected date of discharge: 05/28/23 Attending physician: Alisa Barrios MD Consults: 05/27/23 10:43 Consult Physician Routine Consulting Provider: Idania De La Paz Consult Reason/Comments: recurrent pancreatitis Do you want consulting provider notified?: Yes Primary care physician: Stated None Hospital Course: Discharge Diagnosis: Acute uncomplicataed alcoholic pancreatitis GERD Alcohol withdrawal alcoholic Anemia, dilutional Thrombocytopenia-Suspect alcohol related Hyponatremia, suspect secondary to pancreatitis Hospital Course: Patient is a 38-year-old male with prior pancreatitis, nephrolithiasis, partial nephrectomy, appendectomy, and alcohol dependency who presented to the emergency room with abdominal pain, nausea, vomiting. In the ER he underwent an extensive evaluation. On arrival he was tachycardic with a pulse of 113. Initial labs were remarkable for a lipase of 1881, urinalysis was negative. He was diagnosed with acute pancreatitis. He was started on IV fluids, antiemetics, pain control. He was admitted for further monitoring. He continued on IV fluids and pain control. They did attempt to increase his diet to clear liquids. Worsening of his pain and he was taken back to nothing by mouth status. A CT abdomen and pelvis was completed which showed fat stranding around the pancreatic head consistent with pancreatitis and no organized fluid collection. He wanted to increase his diet on 05/26 and he tolerated juice and popsicles wel l. On 05/27 he was unable to tolerate full liquid and GI was consulted. He was able to tolerate full liquid by 05/28 and was determined stable for discharge home. Follow-up: Given Dr. Mendoza's number to establish care, Nahomy 5/325 q 6 hours prn pain # 16, low fat diet, abstain from ETOH. Return to work without restrictions on 05/31/23. Patient seen and examined at bedside. Pain is better today, tolerated clears, wants to go home. Vital signs reviewed and stable. General: nontoxic, no distress, appears at stated age Cardiovascular: S1S2 reg, no murmur, positive posterior tibial pulse bilateral, Lungs: CTA bilateral, no rhonchi, no rales , no accessory muscle use Abdominal: soft, nontender to palpation, no guarding, no appreciable organomegaly Ext: no gross muscle atrophy, no edema b/l lower extremities, no contractures Neuro: CN II-XI grossly intact, no focal neuro deficits Psych: Alert, oriented, appropriate affect A total of 32 minutes of time were spent preparing this complex discharge summary. Patient was discharged on 05/28/23. This dictation was prepared using [employer] voice recognition software. Though every attempt is made to correct errors during dictation some may still exist. Patient Condition at Discharge: Fair Plan - Discharge Summary New Discharge Prescriptions: New Folic Acid 1 mg PO DAILY tab Multivitamins, Thera [Multivitamin (formulary)] 1 each PO DAILY tab HYDROcodone/APAP 5-325MG [Mustang 5-325] 1 each PO Q4HR PRN #16 tab PRN Reason: Pain Thiamine [Vitamin B-1] 100 mg PO DAILY tab Continue Pantoprazole [Protonix] 40 mg PO DAILY #30 tab Loratadine [Claritin] 10 mg PO DAILY Dextroamphetamine/Amphetamine [Adderall Xr 30 mg Capsule] 30 mg PO DAILY Dextroamphetamine/Amphetamine [Adderall] 10 mg PO DAILY PRN PRN Reason: ADHD Discharge Medication List Pantoprazole [Protonix] 40 mg PO DAILY #30 tab 03/14/23 [Rx] Dextroamphetamine/Amphetamine [Adderall Xr 30 mg Capsule] 30 mg PO DAILY 05/23/23 [History] Dextroamphetamine/Amphetamine [Adderall] 10 mg PO DAILY PRN 05/23/23 [History] Loratadine [Claritin] 10 mg PO DAILY 05/23/23 [History] Folic Acid 1 mg PO DAILY tab 05/28/23 [Rx] HYDROcodone/APAP 5-325MG [Mustang 5-325] 1 each PO Q4HR PRN #16 tab 05/28/23 [Rx] Multivitamins, Thera [Multivitamin (formulary)] 1 each PO DAILY tab 05/28/23 [Rx] Thiamine [Vitamin B-1] 100 mg PO DAILY tab 05/28/23 [Rx] Follow up Appointment(s)/Referral(s): None,Stated [Primary Care Provider] - 1-2 days Ramses Mendoza MD [STAFF PHYSICIAN] - 1 Week (suggestion for your PCP ) Patient Instructions/Handouts: Pancreatitis (DC), Abuse of Alcohol (DC) Activity/Diet/Wound Care/Special Instructions: Activity: as tolerated Diet: low fat Special Instructions: No driving while taking Mustang, this should not be mixed this with other drugs or alcohol it can lead to overdose causing sedation and May return to work without restrictions on 05/31/23 Discharge/Stand Alone Forms: WILLA Chowdary, Outpatient Counseling, In Substance Abuse Facilities
== END 2023-05-28 14:41 | disposition home or self-care (01) | DRG 439 ==
LOC: EC 06:13 → 5NMEDONC 08:20 → OBSVTOIN 08:20 → 5NMEDONC 10:24
PROVIDERS: ADMIT Internal Medicine; ATTEND Internal Medicine
DX: K85.20 Alcohol induced acute pancreatitis without necrosis or infection (principal); E87.1 Hypo-osmolality and hyponatremia; F10.239 Alcohol dependence with withdrawal, unspecified; K86.1 Other chronic pancreatitis; K21.9 Gastro-esophageal reflux disease without esophagitis; F90.9 Attention-deficit hyperactivity disorder, unspecified type; F17.200 Nicotine dependence, unspecified, uncomplicated; D69.6 Thrombocytopenia, unspecified; D64.9 Anemia, unspecified; K76.0 Fatty (change of) liver, not elsewhere classified; Z79.899 Other long term (current) drug therapy; Z87.442 Personal history of urinary calculi; Z90.5 Acquired absence of kidney
CPT/HCPCS: 36415; 74177; 80053; 81001; 82150; 83690; 83735; 85025; 85027; 94640; 96361; 96374; 96375; 96376; 99285

== ENCOUNTER 2023-07-22 01:59 | Emergency (ER) | payer OTHER ==
--- NOTE | 2023-07-22 03:32 | ED ---
Abdominal Pain HPI - General Source: patient, RN notes reviewed Mode of arrival: ambulatory Limitations: no limitations <Delfina Hardy - Last Filed: 07/22/23 03:31> <Jose Vela - Last Filed: 07/22/23 09:39> - General Chief Complaint: Abdominal Pain Stated Complaint: pancreatitis Time Seen by Provider: 07/22/23 03:31 - History of Present Illness Initial Comments: Patient is a 38-year-old male presents the emergency department for abdominal pain. Patient has history of pancreatitis feels that he is having another episode. (Delfina Hardy) This is a 38-year-old male who presents emergency Department with a past medical history significant for alcoholism. Patient states last 2 days ago. Patient states today he comes into the emergency department because he has epigastric abdominal pain radiating to his back. Patient states it feels like his fingertips. Patient complains of nausea but has yet to vomit. Patient states he has no difficulty breathing or chest pain palpitations. Patient denies any fever chills. Patient denies any lower abdominal pain. (Jose Vela) - Related Data Home Medications Medication Instructions Recorded Confirmed Dextroamphetamine/Amphetamine 30 mg PO DAILY 05/23/23 07/22/23 [Adderall Xr 30 mg Capsule] Dextroamphetamine/Amphetamine 10 mg PO W/LUNCH 05/23/23 07/22/23 [Adderall] Loratadine [Claritin] 10 mg PO DAILY 05/23/23 07/22/23 Multivitamins, Thera [Multivitamin 1 tab PO DAILY 07/22/23 07/22/23 (formulary)] Pantoprazole [Protonix] 40 mg PO HS 07/22/23 07/22/23 Psyllium Husk [Metamucil] 0.4 gm PO HS 07/22/23 07/22/23 Allergies Allergy/AdvReac Type Severity Reaction Status Date / Time No Known Allergies Allergy Verified 07/22/23 09:29 Review of Systems ROS Other: All systems not noted in ROS Statement are negative. <Delfina Hardy - Last Filed: 07/22/23 03:31> ROS Other: All systems not noted in ROS Statement are negative. <Jose Vela - Last Filed: 07/22/23 09:39> ROS Statement: Those systems with pertinent positive or pertinent negative responses have been documented in the HPI. Past Medical History Additional Past Medical History / Comment(s): Pancreatitis, kidney stone History of Any Multi-Drug Resistant Organisms: None Reported Past Surgical History: No Surgical Hx Reported Additional Past Surgical History / Comment(s): left partial nephrectomy Past Anesthesia/Blood Transfusion Reactions: No Reported Reaction Past Psychological History: ADD/ADHD Smoking Status: Current every day smoker Past Alcohol Use History: None Reported, Daily Past Drug Use History: Marijuana <Pradeep Hardyna - Last Filed: 07/22/23 03:31> General Exam Limitations: no limitations <Delfina Hardy - Last Filed: 07/22/23 03:31> <Jose Vela - Last Filed: 07/22/23 09:39> - General Exam Comments Initial Comments: Visual Physical Exam Vital signs reviewed General: Well-appearing, nontoxic, no acute distress. Head: Normocephalic, atraumatic Eyes: PERRLA, EOMI ENT: Airway patent Chest: Nonlabored breathing Skin: No visual rash, normal skin tone Neuro: Alert and oriented 3 Musculoskeletal: No gross abnormalities (Delfina Hardy) GENERAL: Patient is well-developed and well-nourished. Patient is nontoxic and well- hydrated and is in mild distress. ENT: Neck is soft and supple. No significant lymphadenopathy is noted. Oropharynx is clear. Moist mucous membranes. Neck has full range of motion without eliciting any pain. EYES: The sclera were anicteric and conjunctiva were pink and moist. Extraocular movements were intact and pupils were equal round and reactive to light. Eyelids were unremarkable. PULMONARY: Unlabored respirations. Good breath sounds bilaterally. No audible rales rhonchi or wheezing was noted. CARDIOVASCULAR: There is a regular rate and rhythm without any murmurs gallops or rubs. ABDOMEN: Patient has epigastric abdominal pain. SKIN: Skin is clear with no lesions or rashes and otherwise unremarkable. NEUROLOGIC: Patient is alert and oriented x3. Cranial nerves II through XII are grossly intact. Motor and sensory are also intact. Normal speech, volume and content. Symmetrical smile. MUSCULOSKELETAL: Normal extremities with adequate strength and full range of motion. No lower extremity swelling or edema. No calf tenderness. LYMPHATICS: No significant lymphadenopathy is noted PSYCHIATRIC: Normal psychiatric evaluation. (Jose Vela) Course Vital Signs 07/22/23 07/22/23 02:27 07:51 Temperature 98.4 F 97.8 F Pulse Rate 99 86 Respiratory 18 18 Rate Blood Pressure 141/100 127/98 O2 Sat by Pulse 98 99 Oximetry Medical Decision Making <Hayley,Delfina - Last Filed: 07/22/23 03:31> - Lab Data Result diagrams: 07/22/23 03:41 07/22/23 03:41 <Jose Veal - Last Filed: 07/22/23 09:39> - Medical Decision Making I performed the QuickNote portion of this chart - Delfina Hardy PA-C (Delfina Hardy) Was pt. sent in by a medical professional or institution ([facility], [facility], urgent care, hospital, or long-term...) When possible be specific @ -No Did you speak to anyone other than the patient for history (EMS, parent, family, police, friend...)? What history was obtained from this source @ -No Did you review nursing and triage notes (agree or disagree)? Why? @ -I reviewed and agree with nursing and triage notes Were old charts reviewed (outside hosp., previous admission, EMS record, old EKG, old radiological studies, urgent care reports/EKG's, long-term records)? Report findings @ -I reviewed prior charts and prior lab work Differential Diagnosis (chest pain, altered mental status, abdominal pain women, abdominal pain men, vaginal bleeding, weakness, fever, dyspnea, syncope, h eadache, dizziness, GI bleed, back pain, seizure, CVA, palpatations, mental health, musculoskeletal)? @ -Differential Abdominal Pain Women: Appendicitis, Cholecystitis, diverticulosis, ischemic bowel, pancreatitis, hepatitis, UTI, gastroenteritis, AAA, incarcerated hernia, bowel obstruction, constipation, inflammatory bowel, hepatitis, peptic ulcer disease, splenic infarction, perforated viscus, vulvitis, ovarian torsion, PID, kidney stone, placenta abruption, this is not meant to be an all-inclusive list EKG interpreted by me (3pts min.). @ -As above X-rays interpreted by me (1pt min.). @ -None done CT interpreted by me (1pt min.). @ -None done U/S interpreted by me (1pt. min.). @ -None done What testing was considered but not performed or refused? (CT, X-rays, U/S, labs)? Why? @ -None What meds were considered but not given or refused? Why? @ -None Did you discuss the management of the patient with other professionals (professionals i.e. , PA, [facility], lab, RT, psych nurse, psych social worker, ethylbenzene oxidizer, teacher, transportation officer, supervisor case loading)? Give summary @ -No Was smoking cessation discussed for >3mins.? @ -No Was critical care preformed (if so, how long)? @ -No Were there social determinants of health that impacted care today? How? (Homelessness, low income, unemployed, alcoholism, drug addiction, trans portation, low edu. Level, literacy, decrease access to med. care, assisted, rehab)? @ -No Was there de-escalation of care discussed even if they declined (Discuss DNR or withdrawal of care, Hospice)? DNR status @ -No What co-morbidities impacted this encounter? (DM, HTN, Smoking, COPD, CAD, Cancer, CVA, ARF, Chemo, Hep., AIDS, mental health diagnosis, sleep apnea, morbid obesity)? @ -None Was patient admitted / discharged? Hospital course, mention meds given and route, prescriptions, significant lab abnormalities, going to OR and other pertinent info. @ -Lipase is only mildly elevated. Patient had Dilaudid fluids and Zofran and was feeling better and she will be discharged home with Zofran and some Tylenol with codeine. Undiagnosed new problem with uncertain prognosis? @ -No Drug Therapy requiring intensive monitoring for toxicity (Heparin, Nitro, Insulin, Cardizem)? @ -No Were any procedures done? @ -No Diagnosis/symptom? @ -Abdominal pain Acute, or Chronic, or Acute on Chronic? @ -Acute Uncomplicated (without systemic symptoms) or Complicated (systemic symptoms)? @ -Complicated Side effects of treatment? @ -No Exacerbation, Progression, or Severe Exacerbation? @ -No Poses a threat to life or bodily function? How? (Chest pain, [place], [place], pneumonia, PE, COPD, DKA, ARF, appy, cholecystitis, CVA, Diverticulitis, Homicidal, Suic idal, threat to staff... and all critical care pts) @ -No (Vela,Jose) - Lab Data Lab Results 07/22/23 07/22/23 07/22/23 Range/Units 03:41 03:41 07:52 WBC 8.7 (3.8-10.6) k/uL RBC 4.28 L (4.30-5.90) m/uL Hgb 15.2 (13.0-17.5) gm/dL Hct 43.1 (39.0-53.0) % MCV 100.6 H (80.0-100.0) fL MCH 35.5 H (25.0-35.0) pg MCHC 35.3 (31.0-37.0) g/dL RDW 12.8 (11.5-15.5) % Plt Count 154 (150-450) k/uL MPV 7.9 Neutrophils % 53 % Lymphocytes % 26 % Monocytes % 3 % Eosinophils % 16 % Basophils % 0 % Neutrophils # 4.6 (1.3-7.7) k/uL Lymphocytes # 2.3 (1.0-4.8) k/uL Monocytes # 0.3 (0-1.0) k/uL Eosinophils # 1.4 H (0-0.7) k/uL Basophils # 0.0 (0-0.2) k/uL Sodium 135 L (137-145) mmol/L Potassium 4.6 (3.5-5.1) mmol/L Chloride 100 (98-107) mmol/L Carbon Dioxide 28 (22-30) mmol/L Anion Gap 7 mmol/L BUN 6 L (9-20) mg/dL Creatinine 0.76 (0.66-1.25) mg/dL Est GFR (CKD-EPI)AfAm >90 (>60 ml/min/1.73 sqM) Est GFR (CKD-EPI)NonAf >90 (>60 ml/min/1.73 sqM) Glucose 118 H (74-99) mg/dL Calcium 9.7 (8.4-10.2) mg/dL Total Bilirubin 0.8 (0.2-1.3) mg/dL AST 57 (17-59) U/L ALT 39 (4-49) U/L Alkaline Phosphatase 89 (38-126) U/L Total Protein 7.3 (6.3-8.2) g/dL Albumin 4.5 (3.5-5.0) g/dL Amylase 55 (30-110) U/L Lipase 397 H (23-300) U/L Serum Alcohol <10 mg/dL Disposition <Dlefina Hardy - Last Filed: 07/22/23 03:31> Is patient prescribed a controlled substance at d/c from ED?: No Time of Disposition: 09:37 <Jose Vela - Last Filed: 07/22/23 09:39> Clinical Impression: Abdominal pain Disposition: HOME SELF-CARE Instructions (If sedation given, give patient instructions): Abdominal Pain (ED) Additional Instructions: Patient should start with a clear liquid diet and advance slowly. Patient should take Zofran and Tylenol with Codeine as needed Referrals: None,Stated [Primary Care Provider] - 1-2 days
[2023-07-22 03:46] LABS: Basophils % (A) 0 %; Eosinophils # (A) 1.4 k/uL (0-0.7); Eosinophils % (A) 16 %; HCT 43.1 % (39.0-53.0); HGB 15.2 gm/dL (13.0-17.5); Lymphocytes # (A) 2.3 k/uL (1.0-4.8); Lymphocytes % (A) 26 %; MCH 35.5 pg (25.0-35.0); MCHC 35.3 g/dL (31.0-37.0); MCV 100.6 fL (80.0-100.0); Mean Platelet Volume 7.9; Monocytes # (A) 0.3 k/uL (0-1.0); Monocytes % (A) 3 %; Neutrophils # (A) 4.6 k/uL (1.3-7.7); Neutrophils % (A) 53 %; Platelet Count 154 k/uL (150-450); RBC 4.28 m/uL (4.30-5.90); RDW 12.8 % (11.5-15.5); WBC 8.7 k/uL (3.8-10.6)
[2023-07-22 04:07] LABS: ALT 39 U/L (4-49); AST 57 U/L (17-59); African American GFR (CKD) >90 (>60 ml/min/1.73 sqM); Albumin 4.5 g/dL (3.5-5.0); Alkaline Phosphatase 89 U/L (38-126); Amylase 55 U/L (30-110); Anion Gap 7 mmol/L; Blood Urea Nitrogen 6 mg/dL (9-20); Calcium 9.7 mg/dL (8.4-10.2); Carbon Dioxide 28 mmol/L (22-30); Chloride 100 mmol/L (98-107); Glucose 118 mg/dL (74-99); Lipase 397 U/L (23-300); Non-African American GFR(CKD) >90 (>60 ml/min/1.73 sqM); Potassium 4.6 mmol/L (3.5-5.1); Sodium 135 mmol/L (137-145); Total Bilirubin 0.8 mg/dL (0.2-1.3); Total Protein 7.3 g/dL (6.3-8.2)
[2023-07-22] MEDS ORDERED: HYDROmorphone 1 MG/ML 1 ML SYRINGE IVP STA (07:19)
[2023-07-22] MEDS ORDERED: ONDANSETRON 4 MG/2 ML VIAL IVP STA (07:19)
[2023-07-22] MEDS ORDERED: SODIUM CHLORIDE 0.9% 2,000 ML IV ONE (07:34)
[2023-07-22 08:01] VITALS: TEMP 97.8
[2023-07-22] MEDS ORDERED: ONDANSETRON 4 MG ODT STARTER PACK 2 TAB BTL PO STA (09:39)
[2023-07-22] MEDS ORDERED: ACET/COD 300 MG/30 MG STARTER PACK 6 TAB BTL PO STA (09:39)
[2023-07-22 10:09] VITALS: BP 123/96; PULSE 88; RESP 20
== END 2023-07-22 10:03 | disposition home or self-care (01) ==
LOC: EC 01:59
DX: R10.13 Epigastric pain (principal); F90.9 Attention-deficit hyperactivity disorder, unspecified type; F17.200 Nicotine dependence, unspecified, uncomplicated; F12.90 Cannabis use, unspecified, uncomplicated; Z79.899 Other long term (current) drug therapy
CPT/HCPCS: 36415; 80053; 82150; 83690; 85025; 80320; 99284; 96374; 96375; 96361 ×2; J2405; J1170; S0119

== ENCOUNTER 2023-12-25 04:58 | Emergency (ER) | payer OTHER ==
[2023-12-25 05:09] VITALS: RESP 18; TEMP 97.8
--- NOTE | 2023-12-25 05:27 | ED ---
Abdominal Pain HPI - General Chief Complaint: Abdominal Pain Stated Complaint: Pancreatitis Time Seen by Provider: 12/25/23 05:14 Source: patient Mode of arrival: ambulatory Limitations: no limitations - History of Present Illness Initial Comments: Patient presents with abdominal pain that he states is similar to previous episodes pancreatitis. MD Complaint: abdominal pain Onset/Timin -: days(s) Location: epigastric Radiation: back Severity: moderate Quality: aching Consistency: constant Improves With: nothing Worsens With: other (drinking) Associated Symptoms: nausea, vomiting - Related Data Home Medications Medication Instructions Recorded Confirmed Dextroamphetamine/Amphetamine 30 mg PO DAILY 05/23/23 07/22/23 [Adderall Xr 30 mg Capsule] Dextroamphetamine/Amphetamine 10 mg PO W/LUNCH 05/23/23 07/22/23 [Adderall] Loratadine [Claritin] 10 mg PO DAILY 05/23/23 07/22/23 Multivitamins, Thera [Multivitamin 1 tab PO DAILY 07/22/23 07/22/23 (formulary)] Pantoprazole [Protonix] 40 mg PO HS 07/22/23 07/22/23 Psyllium Husk [Metamucil] 0.4 gm PO HS 07/22/23 07/22/23 Allergies Allergy/AdvReac Type Severity Reaction Status Date / Time No Known Allergies Allergy Verified 07/22/23 09:29 Review of Systems ROS Statement: Those systems with pertinent positive or pertinent negative responses have been documented in the HPI. ROS Other: All systems not noted in ROS Statement are negative. Constitutional: Denies: fever, chills, weakness Respiratory: Denies: cough, dyspnea Cardiovascular: Denies: chest pain, palpitations, edema, syncope Gastrointestinal: Reports: abdominal pain, nausea, vomiting. Denies: diarrhea, constipation, melena, hematochezia Genitourinary: Denies: dysuria, hematuria Musculoskeletal: Denies: back pain Skin: Denies: rash Neurological: Denies: headache, weakness, numbness Past Medical History Additional Past Medical History / Comment(s): Pancreatitis, kidney stone History of Any Multi-Drug Resistant Organisms: None Reported Past Surgical History: No Surgical Hx Reported Additional Past Surgical History / Comment(s): left partial nephrectomy Past Anesthesia/Blood Transfusion Reactions: No Reported Reaction Past Psychological History: ADD/ADHD Smoking Status: Current every day smoker Past Alcohol Use History: None Reported, Daily Past Drug Use History: Marijuana General Exam Limitations: no limitations General appearance: alert, in no apparent distress Head exam: Present: atraumatic, normocephalic Eye exam: Present: normal appearance. Absent: scleral icterus, conjunctival injection Neck exam: Present: normal inspection Respiratory exam: Present: normal lung sounds bilaterally. Absent: respiratory distress, wheezes, rales, rhonchi, stridor, accessory muscle use Cardiovascular Exam: Present: regular rate, normal rhythm, normal heart sounds. Absent: systolic murmur, diastolic murmur, rubs, gallop GI/Abdominal exam: Present: soft. Absent: distended, tenderness, guarding, rebound, rigid, mass Extremities exam: Present: normal inspection, normal capillary refill. Absent: pedal edema, calf tenderness Back exam: Present: normal inspection. Absent: CVA tenderness (R), CVA tenderness (L) Neurological exam: Present: alert Skin exam: Present: warm, dry, intact, normal color. Absent: rash Course Vital Signs 12/25/23 12/25/23 04:59 06:34 Temperature 97.8 F Pulse Rate 99 66 Respiratory 18 18 Rate Blood Pressure 151/94 127/104 O2 Sat by Pulse 98 100 Oximetry Medical Decision Making - Medical Decision Making Was pt. sent in by a medical professional or institution (KHANH Britt, GROUP SEGMENT CONSULTANT, urgent care, hospital, or custodial...) When possible be specific @ -[No] Did you speak to anyone other than the patient for history (EMS, parent, family, police, friend...)? What history was obtained from this source @ -[No] Did you review nursing and triage notes (agree or disagree)? Why? @ -[I reviewed and agree with nursing and triage notes] Were old charts reviewed (outside hosp., previous admission, EMS record, old EKG, old radiological studies, urgent care reports/EKG's, custodial records)? Report findings @ -[No old charts were reviewed] Differential Diagnosis (chest pain, altered mental status, abdominal pain women, abdominal pain men, vaginal bleeding, weakness, fever, dyspnea, syncope, headache, dizziness, GI bleed, back pain, seizure, CVA, palpatations, mental hea lth, musculoskeletal)? @ -[Differential Abdominal Pain Men: Appendicitis, cholecystitis, diverticulosis, ischemic bowel, pancreatitis, hepatitis, UTI, gastroenteritis, AAA, incarcerated hernia, bowel obstruction, constipation, inflammatory bowel, hepatitis, peptic ulcer disease, splenic infarction, perforated viscus, testicular torsion, this is not meant to be an all-inclusive list EKG interpreted by me (3pts min.). @ -[As above] X-rays interpreted by me (1pt min.). @ -[None done] CT interpreted by me (1pt min.). @ -[None done] U/S interpreted by me (1pt. min.). @ -[None done] What testing was considered but not performed or refused? (CT, X-rays, U/S, labs)? Why? @ -[CT scan of the abdomen and pelvis is considered, but the patient did have good response to treatment and an interest of limiting radiation exposure will hold at this time What meds were considered but not given or refused? Why? @ -[None] Did you discuss the management of the patient with other professionals (sharee pham i.eCarina Britt, PA, GROUP SEGMENT CONSULTANT, lab, RT, psych nurse, social services technician, computer game programmer, teacher, maritime officer, casey saw operator)? Give summary @ -[No] Was smoking cessation discussed for >3mins.? @ -[No] Was critical care preformed (if so, how long)? @ -[No] Were there social determinants of health that impacted care today? How? (Homelessness, low income, unemployed, alcoholism, drug addiction, transportation, low edu. Level, literacy, decrease access to med. care, penitentiary, rehab)? @ -[No] Was there de-escalation of care discussed even if they declined (Discuss DNR or withdrawal of care, Hospice)? DNR status @ -[No] What co-morbidities impacted this encounter? (DM, HTN, Smoking, COPD, CAD, Cancer, CVA, ARF, Chemo, Hep., AIDS, mental health diagnosis, sleep apnea, morbid obesity)? @ -[History of pancreatitis Was patient admitted / discharged? Hospital course, mention meds given and route, prescriptions, significant lab abnormalities, going to OR and other pertinent info. @ -[Patient is a 38-year-old man here with abdominal pain. He has had response with treatment. At this point appears stable for outpatient care. Discussed appropriate home treatments, follow-up, return parameters and all questions answered. Undiagnosed new problem with uncertain prognosis? @ -[No] Drug Therapy requiring intensive monitoring for toxicity (Heparin, Nitro, Insulin, Cardizem)? @ -[No] Were any procedures done? @ -[No] Diagnosis/symptom? @ -[Acute abdominal pain Acute, or Chronic, or Acute on Chronic? @ -[Acute Uncomplicated (without systemic symptoms) or Complicated (systemic symptoms)? @ -[Uncomplicated Side effects of treatment? @ -[No] Exacerbation, Progression, or Severe Exacerbation? @ -[No] Poses a threat to life or bodily function? How? (Chest pain, [place], [place], pneumonia, PE, COPD, DKA, ARF, appy, cholecystitis, CVA, Diverticulitis, Homicidal, Suicidal, threat to staff... and all critical care pts) @ -[No] - Lab Data Result diagrams: 12/25/23 05:21 12/25/23 05:21 Lab Results 12/25/23 12/25/23 12/25/23 Range/Units 05:21 05:21 05:21 WBC 6.2 (3.8-10.6) k/uL RBC 4.26 L (4.30-5.90) m/uL Hgb 15.1 (13.0-17.5) gm/dL Hct 43.0 (39.0-53.0) % MCV 100.9 H (80.0-100.0) fL MCH 35.6 H (25.0-35.0) pg MCHC 35.3 (31.0-37.0) g/dL RDW 13.0 (11.5-15.5) % Plt Count 198 (150-450) k/uL MPV 8.2 Neutrophils % 41 % Lymphocytes % 40 % Monocytes % 5 % Eosinophils % 11 % Basophils % 1 % Neutrophils # 2.6 (1.3-7.7) k/uL Lymphocytes # 2.5 (1.0-4.8) k/uL Monocytes # 0.3 (0-1.0) k/uL Eosinophils # 0.7 (0-0.7) k/uL Basophils # 0.0 (0-0.2) k/uL Sodium 140 (137-145) mmol/L Potassium 4.2 (3.5-5.1) mmol/L Chloride 108 H (98-107) mmol/L Carbon Dioxide 22 (22-30) mmol/L Anion Gap 10 mmol/L BUN 7 L (9-20) mg/dL Creatinine 0.62 L (0.66-1.25) mg/dL Est GFR (CKD-EPI)AfAm >90 (>60 ml/min/1.73 sqM) Est GFR (CKD-EPI)NonAf >90 (>60 ml/min/1.73 sqM) Glucose 103 H (74-99) mg/dL Plasma Lactic Acid Higinio (0.7-2.0) mmol/L Calcium 8.7 (8.4-10.2) mg/dL Total Bilirubin 0.7 (0.2-1.3) mg/dL AST 107 H (17-59) U/L ALT 60 H (4-49) U/L Alkaline Phosphatase 92 (38-126) U/L Total Protein 7.1 (6.3-8.2) g/dL Albumin 4.2 (3.5-5.0) g/dL Amylase 59 (30-110) U/L Lipase 138 (23-300) U/L Urine Color Colorless Urine Appearance Clear (Clear) Urine pH 7.0 (5.0-8.0) Ur Specific [place] 1.002 (1.001-1.035) Urine Protein Negative (Negative) Urine Glucose (UA) Negative (Negative) Urine Ketones Negative (Negative) Urine Blood Negative (Negative) Urine Nitrite Negative (Negative) Urine Bilirubin Negative (Negative) Urine Urobilinogen <2.0 (<2.0) mg/dL Ur Leukocyte Esterase Negative (Negative) 12/25/23 Range/Units 05:45 WBC (3.8-10.6) k/uL RBC (4.30-5.90) m/uL Hgb (13.0-17.5) gm/dL Hct (39.0-53.0) % MCV (80.0-100.0) fL MCH (25.0-35.0) pg MCHC (31.0-37.0) g/dL RDW (11.5-15.5) % Plt Count (150-450) k/uL MPV Neutrophils % % Lymphocytes % % Monocytes % % Eosinophils % % Basophils % % Neutrophils # (1.3-7.7) k/uL Lymphocytes # (1.0-4.8) k/uL Monocytes # (0-1.0) k/uL Eosinophils # (0-0.7) k/uL Basophils # (0-0.2) k/uL Sodium (137-145) mmol/L Potassium (3.5-5.1) mmol/L Chloride (98-107) mmol/L Carbon Dioxide (22-30) mmol/L Anion Gap mmol/L BUN (9-20) mg/dL Creatinine (0.66-1.25) mg/dL Est GFR (CKD-EPI)AfAm (>60 ml/min/1.73 sqM) Est GFR (CKD-EPI)NonAf (>60 ml/min/1.73 sqM) Glucose (74-99) mg/dL Plasma Lactic Acid Higinio 1.4 (0.7-2.0) mmol/L Calcium (8.4-10.2) mg/dL Total Bilirubin (0.2-1.3) mg/dL AST (17-59) U/L ALT (4-49) U/L Alkaline Phosphatase (38-126) U/L Total Protein (6.3-8.2) g/dL Albumin (3.5-5.0) g/dL Amylase (30-110) U/L Lipase (23-300) U/L Urine Color Urine Appearance (Clear) Urine pH (5.0-8.0) Ur Specific [place] (1.001-1.035) Urine Protein (Negative) Urine Glucose (UA) (Negative) Urine Ketones (Negative) Urine Blood (Negative) Urine Nitrite (Negative) Urine Bilirubin (Negative) Urine Urobilinogen (<2.0) mg/dL Ur Leukocyte Esterase (Negative) Disposition Clinical Impression: Abdominal pain Disposition: HOME SELF-CARE Condition: Good Instructions (If sedation given, give patient instructions): Abdominal Pain (ED) Is patient prescribed a controlled substance at d/c from ED?: No Referrals: None,Stated [Primary Care Provider] - 1-2 days
[2023-12-25 05:38] LABS: Basophils % (A) 1 %; Eosinophils # (A) 0.7 k/uL (0-0.7); Eosinophils % (A) 11 %; HGB 15.1 gm/dL (13.0-17.5); Lymphocytes # (A) 2.5 k/uL (1.0-4.8); Lymphocytes % (A) 40 %; MCH 35.6 pg (25.0-35.0); MCHC 35.3 g/dL (31.0-37.0); MCV 100.9 fL (80.0-100.0); Mean Platelet Volume 8.2; Monocytes # (A) 0.3 k/uL (0-1.0); Monocytes % (A) 5 %; Neutrophils # (A) 2.6 k/uL (1.3-7.7); Neutrophils % (A) 41 %; Platelet Count 198 k/uL (150-450); RBC 4.26 m/uL (4.30-5.90); WBC 6.2 k/uL (3.8-10.6)
[2023-12-25] MEDS: SODIUM CHLORIDE 0.9% 1,000 ML IV ONE (05:38)
[2023-12-25] MEDS: ONDANSETRON 4 MG/2 ML VIAL IVP STA (05:39)
[2023-12-25] MEDS: MORPHINE SULFATE 4 MG/ML SYRINGE IV STA ×2 (05:39→06:46)
[2023-12-25 05:40] LABS: Appearance,Urine Clear (Clear); Bilirubin,Urine Negative (Negative); Blood,Urine Negative (Negative); Color,Urine Colorless; Glucose,Urine (UA) Negative (Negative); Ketones,Urine Negative (Negative); Leukocyte Esterase,Urine Negative (Negative); Nitrite,Urine Negative (Negative); Protein,Urine Negative (Negative); Specific Gravity,Urine 1.002 (1.001-1.035); Urobilinogen,Urine <2.0 mg/dL (<2.0)
[2023-12-25 06:02] LABS: Potassium 4.2 mmol/L (3.5-5.1)
[2023-12-25 06:03] LABS: ALT 60 U/L (4-49); AST 107 U/L (17-59); African American GFR (CKD) >90 (>60 ml/min/1.73 sqM); Albumin 4.2 g/dL (3.5-5.0); Alkaline Phosphatase 92 U/L (38-126); Amylase 59 U/L (30-110); Anion Gap 10 mmol/L; Blood Urea Nitrogen 7 mg/dL (9-20); Calcium 8.7 mg/dL (8.4-10.2); Carbon Dioxide 22 mmol/L (22-30); Chloride 108 mmol/L (98-107); Glucose 103 mg/dL (74-99); Lipase 138 U/L (23-300); Non-African American GFR(CKD) >90 (>60 ml/min/1.73 sqM); Sodium 140 mmol/L (137-145); Total Bilirubin 0.7 mg/dL (0.2-1.3); Total Protein 7.1 g/dL (6.3-8.2)
[2023-12-25] MEDS: LORazepam 2 MG/ML INJ IV STA (06:44)
[2023-12-25 06:57] VITALS: BP 127/104; PULSE 66
== END 2023-12-25 08:07 | disposition home or self-care (01) ==
LOC: EC 04:58
DX: R10.13 Epigastric pain (principal); F17.200 Nicotine dependence, unspecified, uncomplicated; Z87.19 Personal history of other diseases of the digestive system
CPT/HCPCS: 36415; 80053; 82150; 83605; 83690; 85025; 81003; 99284; 96374; 96375 ×2; 96376; 96361; J2060; J2270; J2405

== ENCOUNTER 2024-02-19 20:02 | Emergency (ER) | payer OTHER ==
--- NOTE | 2024-02-19 20:35 | ED ---
Abdominal Pain HPI - General Source: patient, RN notes reviewed Mode of arrival: ambulatory Limitations: no limitations <Jordan Fowler - Last Filed: 02/19/24 20:34> - History of Present Illness MD Complaint: abdominal pain Onset/Timin -: days(s) Location: epigastric Radiation: back Migration to: no migration Severity: moderate Quality: aching Consistency: constant Improves With: nothing Worsens With: nothing Associated Symptoms: nausea, vomiting <Chandan Ibrahim - Last Filed: 02/19/24 23:42> - General Chief Complaint: Abdominal Pain Stated Complaint: abd pain, nausea, vomiting Time Seen by Provider: 02/19/24 20:35 - History of Present Illness Initial Comments: Quick note: 38-year-old male presented to the ER with chief complaint of abdominal pain. Patient has a history of pancreatitis. He states this has been going on for 1 day and also endorses nausea, vomiting, diarrhea and cold sweats. 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 Patient states she is having similar pain to previous flareups. He has recently been drinking. The patient has had nausea and vomiting but not noticing hematemesis or coffee-ground material. The patient denies blood per rectum or dark tarry stool. (Chandan Ibrahim) - Related Data Home Medications Medication Instructions Recorded Confirmed Dextroamphetamine/Amphetamine 30 mg PO DAILY 05/23/23 07/22/23 [Adderall Xr 30 mg Capsule] Dextroamphetamine/Amphetamine 10 mg PO W/LUNCH 05/23/23 07/22/23 [Adderall] Loratadine [Claritin] 10 mg PO DAILY 05/23/23 07/22/23 Multivitamins, Thera [Multivitamin 1 tab PO DAILY 07/22/23 07/22/23 (formulary)] Pantoprazole [Protonix] 40 mg PO HS 07/22/23 07/22/23 Psyllium Husk [Metamucil] 0.4 gm PO HS 07/22/23 07/22/23 Previous Rx's Medication Instructions Recorded Famotidine [Pepcid] 20 mg PO BID #14 tablet 02/19/24 Allergies Allergy/AdvReac Type Severity Reaction Status Date / Time No Known Allergies Allergy Verified 10/12/23 09:29 Review of Systems ROS Other: All systems not noted in ROS Statement are negative. <Jordan Fowler - Last Filed: 02/19/24 20:34> ROS Other: All systems not noted in ROS Statement are negative. <Chandan Ibrahim - Last Filed: 02/19/24 23:42> ROS Statement: Those systems with pertinent positive or pertinent negative responses have been documented in the HPI. Past Medical History Additional Past Medical History / Comment(s): Pancreatitis, kidney stone History of Any Multi-Drug Resistant Organisms: None Reported Past Surgical History: No Surgical Hx Reported Additional Past Surgical History / Comment(s): left partial nephrectomy Past Anesthesia/Blood Transfusion Reactions: No Reported Reaction Past Psychological History: ADD/ADHD Smoking Status: Current every day smoker Past Alcohol Use History: None Reported, Daily Past Drug Use History: Marijuana <Jordan Fowler - Last Filed: 02/19/24 20:34> General Exam Limitations: no limitations <Jordan Fowler - Last Filed: 02/19/24 20:34> Limitations: no limitations General appearance: alert, in no apparent distress Head exam: Present: atraumatic, normocephalic Eye exam: Present: normal appearance ENT exam: Present: mucous membranes dry Neck exam: Present: normal inspection Respiratory exam: Present: normal lung sounds bilaterally. Absent: respiratory distress, wheezes, rales, rhonchi, stridor, accessory muscle use Cardiovascular Exam: Present: regular rate, normal rhythm, normal heart sounds. Absent: systolic murmur, diastolic murmur, rubs, gallop GI/Abdominal exam: Present: soft. Absent: distended, tenderness, guarding, rebound, rigid, mass, pulsatile mass, hernia Extremities exam: Present: normal inspection, normal capillary refill. Absent: pedal edema, calf tenderness Back exam: Present: normal inspection. Absent: CVA tenderness (R), CVA tenderness (L) Neurological exam: Present: alert Skin exam: Present: warm, dry, intact, normal color. Absent: rash <Chandan Ibrahim - Last Filed: 02/19/24 23:42> - General Exam Comments Initial Comments: Visual Physical Exam Vital signs reviewed General: Well-appearing, nontoxic, no acute distress. Head: Normocephalic, atraumatic Eyes: PERRLA, EOMI ENT: Airway patent Chest: Nonlabored breathing Skin: No visual rash, normal skin tone Neuro: Alert and oriented 3 Musculoskeletal: No gross abnormalities (Jordan Fowler) Course Vital Signs 02/19/24 02/19/24 20:04 21:59 Temperature 98.8 F Pulse Rate 104 H 94 Respiratory 16 16 Rate Blood Pressure 151/98 130/99 O2 Sat by Pulse 98 98 Oximetry Medical Decision Making <Jordan Fowler - Last Filed: 02/19/24 20:34> - Lab Data Result diagrams: 02/19/24 21:06 02/19/24 21:06 <Chandan Ibrahim - Last Filed: 02/19/24 23:42> - Medical Decision Making I performed the quick note portion of this chart. Electronically signed by Jordan Fowler PA-C (Jordan Fowler) - Lab Data Lab Results 02/19/24 02/19/24 02/19/24 Range/Units 21:06 21:06 21:06 WBC 4.6 (3.8-10.6) k/uL RBC 4.43 (4.30-5.90) m/uL Hgb 15.6 (13.0-17.5) gm/dL Hct 45.8 (39.0-53.0) % MCV 103.3 H (80.0-100.0) fL MCH 35.3 H (25.0-35.0) pg MCHC 34.1 (31.0-37.0) g/dL RDW 13.0 (11.5-15.5) % Plt Count 178 (150-450) k/uL MPV 8.0 Neutrophils % 59 % Lymphocytes % 27 % Monocytes % 4 % Eosinophils % 8 % Basophils % 1 % Neutrophils # 2.7 (1.3-7.7) k/uL Lymphocytes # 1.2 (1.0-4.8) k/uL Monocytes # 0.2 (0-1.0) k/uL Eosinophils # 0.4 (0-0.7) k/uL Basophils # 0.0 (0-0.2) k/uL Macrocytosis Slight Sodium 137 (137-145) mmol/L Potassium 4.2 (3.5-5.1) mmol/L Chloride 104 (98-107) mmol/L Carbon Dioxide 22 (22-30) mmol/L Anion Gap 11 mmol/L BUN 6 L (9-20) mg/dL Creatinine 0.63 L (0.66-1.25) mg/dL Est GFR (CKD-EPI)AfAm >90 (>60 ml/min/1.73 sqM) Est GFR (CKD-EPI)NonAf >90 (>60 ml/min/1.73 sqM) Glucose 92 (74-99) mg/dL Plasma Lactic Acid Higinio 1.9 (0.7-2.0) mmol/L Calcium 8.8 (8.4-10.2) mg/dL Total Bilirubin 0.9 (0.2-1.3) mg/dL AST 132 H (17-59) U/L ALT 121 H (4-49) U/L Alkaline Phosphatase 111 (38-126) U/L Total Protein 7.0 (6.3-8.2) g/dL Albumin 4.2 (3.5-5.0) g/dL Amylase 48 (30-110) U/L Lipase 170 (23-300) U/L Disposition <Jordan Fowler - Last Filed: 02/19/24 20:34> Is patient prescribed a controlled substance at d/c from ED?: No <Chandan Ibrahim - Last Filed: 02/19/24 23:42> Clinical Impression: Abdominal pain Disposition: HOME SELF-CARE Condition: Good Instructions (If sedation given, give patient instructions): Abdominal Pain (ED) Prescriptions: Famotidine [Pepcid] 20 mg PO BID #14 tablet Referrals: None,Stated [Primary Care Provider] - 1-2 days
[2024-02-19 20:36] VITALS: TEMP 98.8
[2024-02-19 21:19] LABS: Basophils % (A) 1 %; Eosinophils # (A) 0.4 k/uL (0-0.7); Eosinophils % (A) 8 %; HCT 45.8 % (39.0-53.0); HGB 15.6 gm/dL (13.0-17.5); Lymphocytes # (A) 1.2 k/uL (1.0-4.8); Lymphocytes % (A) 27 %; MCH 35.3 pg (25.0-35.0); MCHC 34.1 g/dL (31.0-37.0); MCV 103.3 fL (80.0-100.0); Macrocytosis Slight; Monocytes # (A) 0.2 k/uL (0-1.0); Monocytes % (A) 4 %; Neutrophils # (A) 2.7 k/uL (1.3-7.7); Neutrophils % (A) 59 %; Platelet Count 178 k/uL (150-450); RBC 4.43 m/uL (4.30-5.90); WBC 4.6 k/uL (3.8-10.6)
[2024-02-19 21:32] LABS: ALT 121 U/L (4-49); AST 132 U/L (17-59); African American GFR (CKD) >90 (>60 ml/min/1.73 sqM); Albumin 4.2 g/dL (3.5-5.0); Alkaline Phosphatase 111 U/L (38-126); Amylase 48 U/L (30-110); Anion Gap 11 mmol/L; Blood Urea Nitrogen 6 mg/dL (9-20); Calcium 8.8 mg/dL (8.4-10.2); Carbon Dioxide 22 mmol/L (22-30); Chloride 104 mmol/L (98-107); Glucose 92 mg/dL (74-99); Lipase 170 U/L (23-300); Non-African American GFR(CKD) >90 (>60 ml/min/1.73 sqM); Potassium 4.2 mmol/L (3.5-5.1); Sodium 137 mmol/L (137-145); Total Bilirubin 0.9 mg/dL (0.2-1.3)
[2024-02-19] MEDS: SODIUM CHLORIDE 0.9% 1,000 ML IV ONE (21:49)
[2024-02-19] MEDS: MORPHINE SULFATE 4 MG/ML SYRINGE IV STA (21:51)
[2024-02-20] MEDS: KETOROLAC 15 MG/ML 1 ML VIAL IVP STA (00:59)
[2024-02-20] MEDS: SODIUM CHLORIDE 0.9% 1,000 ML IV STA (01:02)
[2024-02-20 01:57] VITALS: BP 118/74; PULSE 68; RESP 18
== END 2024-02-20 01:05 | disposition home or self-care (01) ==
LOC: EC 20:02
DX: R10.9 Unspecified abdominal pain (principal); F17.200 Nicotine dependence, unspecified, uncomplicated; F12.90 Cannabis use, unspecified, uncomplicated
CPT/HCPCS: 36415; 80053; 82150; 83605; 83690; 85025; 99284; 96374; 96375; 96361; J2270; J1885

== ENCOUNTER 2024-04-11 00:48 | Emergency (ER) | payer OTHER ==
[2024-04-11 00:56] VITALS: TEMP 98.1
--- NOTE | 2024-04-11 01:17 | ED ---
General Adult HPI - General Chief complaint: Abdominal Pain Stated complaint: ABD Pain, NV Time Seen by Provider: 04/11/24 00:57 Source: patient Mode of arrival: ambulatory Limitations: no limitations - History of Present Illness Initial comments: Dictation was produced using [employer] dictation software. please excuse any grammatical, word or spelling errors. Chief Complaint: 38-year-old alcoholic male with history of pancreatitis presents with abdominal pain History of Present Illness: Patient is a 38-year-old alcoholic male presents emergency department with abdominal pain. Patient states his symptoms have been ongoing for the last 1 to 2 days. Patient is a daily drinker drink large amounts of liquor daily. Patient states he is here for epigastric pain he has history of pancreatitis he was recently put to the hospital at [facility] fo r pancreatitis. Denies any fever. Any surgical abdominal history. Patient states that the pain is mild however he states that if he waits too long he might end up getting admitted to the hospital. The ROS documented in this emergency department record has been reviewed and confirmed by me. Those systems with pertinent positive or negative responses have been documented in the HPI. All other systems are other negative and/or noncontributory. - Related Data Home Medications Medication Instructions Recorded Confirmed Dextroamphetamine/Amphetamine 30 mg PO DAILY 05/23/23 07/22/23 [Adderall Xr 30 mg Capsule] Dextroamphetamine/Amphetamine 10 mg PO W/LUNCH 05/23/23 07/22/23 [Adderall] Loratadine [Claritin] 10 mg PO DAILY 05/23/23 07/22/23 Multivitamins, Thera [Multivitamin 1 tab PO DAILY 07/22/23 07/22/23 (formulary)] Pantoprazole [Protonix] 40 mg PO HS 07/22/23 07/22/23 Psyllium Husk [Metamucil] 0.4 gm PO HS 07/22/23 07/22/23 Previous Rx's Medication Instructions Recorded Famotidine [Pepcid] 20 mg PO BID #14 tablet 02/19/24 Allergies Allergy/AdvReac Type Severity Reaction Status Date / Time No Known Allergies Allergy Verified 07/22/23 09:29 Review of Systems ROS Statement: Those systems with pertinent positive or pertinent negative responses have been documented in the HPI. ROS Other: All systems not noted in ROS Statement are negative. Past Medical History Additional Past Medical History / Comment(s): Pancreatitis, kidney stone History of Any Multi-Drug Resistant Organisms: None Reported Past Surgical History: No Surgical Hx Reported Additional Past Surgical History / Comment(s): left partial nephrectomy Past Anesthesia/Blood Transfusion Reactions: No Reported Reaction Past Psychological History: ADD/ADHD Smoking Status: Current every day smoker Past Alcohol Use History: Daily Past Drug Use History: Marijuana General Exam - General Exam Comments Initial Comments: PHYSICAL EXAM: General Impression: Alert and oriented x3, not in acute distress HEENT: Normocephalic atraumatic, extra-ocular movements intact, pupils equal and reactive to light bilaterally, mucous membranes moist. Cardiovascular: Heart regular rate and rhythm Chest: Able to complete full sentences, no retractions, no tachypnea Abdomen: abdomen soft, epigastric palpatory tenderness, non-distended, no organomegaly Musculoskeletal: Pulses present and equal in all extremities, no peripheral edema Motor: no focal deficits noted Neurological: CN II-XII grossly intact, no focal motor or sensory deficits noted Skin: Intact with no visualized rashes Psych: Normal affect and mood Limitations: no limitations Course Vital Signs 04/11/24 00:53 Temperature 98.1 F Pulse Rate 100 Respiratory 20 Rate Blood Pressure 152/98 O2 Sat by Pulse 95 Oximetry Medical Decision Making - Medical Decision Making Was pt. sent in by a medical professional or institution (KHANH Britt, DIRECTOR DATABASE, urgent care, hospital, or residential...) When possible be specific @ -No Did you speak to anyone other than the patient for history (EMS, parent, family, police, friend...)? What history was obtained from this source @ -No Did you review nursing and triage notes (agree or disagree)? Why? @ -I reviewed and agree with nursing and triage notes Were old charts reviewed (outside hosp., previous admission, EMS record, old EKG, old radiological studies, urgent care reports/EKG's, residential records)? Report findings @ -No old charts were reviewed Differential Diagnosis (chest pain, altered mental status, abdominal pain women, abdominal pain men, vaginal bleeding, musculoskeletal, weakness, fever, dyspnea, syncope, headache, dizziness, GI bleed, back pain, seizure, CVA, palpatations, mental health)? @ -Differential Abdominal Pain Men: Appendicitis, cholecystitis, diverticulosis, ischemic bowel, pancreatitis, hepatitis, UTI, gastroenteritis, AAA, incarcerated hernia, bowel obstruction, constipation, inflammatory bowel, hepatitis, peptic ulcer disease, splenic infarction, perforated viscus, testicular torsion, this is not meant to be an al l-inclusive list EKG interpreted by me (3pts min.). @ -None done X-rays interpreted by me (1pt min.). @ -None done CT interpreted by me (1pt min.). @ -None done U/S interpreted by me (1pt. min.). @ -None done What testing was considered but not performed or refused? (CT, X-rays, U/S, labs)? Why? @ -None What meds were considered but not given or refused? Why? @ -None Was smoking cessation discussed for >3mins.? @ -No Were there social determinants of health that impacted care today? How? (Homelessness, low income, unemployed, alcoholism, drug addiction, transportation, low edu. Level, literacy, decrease access to med. care, halfway, rehab)? @ -No Was there de-escalation of care discussed even if they declined (Discuss DNR or withdrawal of care, Hospice)? DNR status @ -No What co-morbidities impacted this encounter? (DM, HTN, Smoking, COPD, CAD, Cancer, CVA, ARF, Chemo, Hep., AIDS, mental health diagnosis, sleep apnea, morbid obesity)? @ -Alcoholism Was patient admitted / discharged? Hospital course, mention meds given and route, prescriptions, significant lab abnormalities, going to OR and other pertinent info. @ -38-year-old male with history of pancreatitis presents to the ER for epigastric abdominal pain. Vital signs stable. Patient has some palpatory tenderness to the epigastrium. Laboratory evaluation obtained. Labs are unremarkable. Lipase is 151. Patient reevaluated bedside at 2:20 AM found to be stable to condition. Patient be discharged. Did you discuss the management of the patient with other professionals (professionals i.e. , PA, DIRECTOR DATABASE, lab, RT, psych nurse, social insurance analyst, animal anatomy teacher, teacher, business liaison officer, case liner)? Give summary @ -No Was critical care preformed (if so, how long)? @ -No Undiagnosed new problem with uncertain prognosis? @ -No Drug Therapy requiring intensive monitoring for toxicity (Heparin, Nitro, Insulin, Cardizem)? @ -No Were any procedures done? @ -No Diagnosis/symptom? Acute, or Chronic, or Acute on Chronic? Uncomplicated (without systemic symptoms) or Complicated (systemic symptoms)? @ -Abdominal pain Side effects of treatment? @ -No Exacerbation, Progression, or Severe Exacerbation? @ -No Poses a threat to life or bodily function? How? (Chest pain, [place], [place], pneumonia, PE, COPD, DKA, ARF, appy, cholecystitis, CVA, Diverticulitis, Homicidal, Suicidal, threat to staff... and all critical care pts) @ -No - Lab Data Result diagrams: 04/11/24 01:14 04/11/24 01:14 Lab Results 04/11/24 04/11/24 Range/Units 01:14 01:14 WBC 7.1 (3.8-10.6) k/uL RBC 4.22 L (4.30-5.90) m/uL Hgb 15.6 (13.0-17.5) gm/dL Hct 43.1 (39.0-53.0) % MCV 102.1 H (80.0-100.0) fL MCH 36.8 H (25.0-35.0) pg MCHC 36.1 (31.0-37.0) g/dL RDW 12.5 (11.5-15.5) % Plt Count 207 (150-450) k/uL MPV 7.9 Neutrophils % 51 % Lymphocytes % 35 % Monocytes % 4 % Eosinophils % 7 % Basophils % 1 % Neutrophils # 3.6 (1.3-7.7) k/uL Lymphocytes # 2.5 (1.0-4.8) k/uL Monocytes # 0.3 (0-1.0) k/uL Eosinophils # 0.5 (0-0.7) k/uL Basophils # 0.0 (0-0.2) k/uL Sodium 139 (137-145) mmol/L Potassium 4.1 (3.5-5.1) mmol/L Chloride 104 (98-107) mmol/L Carbon Dioxide 25 (22-30) mmol/L Anion Gap 10 mmol/L BUN 8 L (9-20) mg/dL Creatinine 0.72 (0.66-1.25) mg/dL Est GFR (CKD-EPI)AfAm >90 (>60 ml/min/1.73 sqM) Est GFR (CKD-EPI)NonAf >90 (>60 ml/min/1.73 sqM) Glucose 92 (74-99) mg/dL Calcium 9.9 (8.4-10.2) mg/dL Total Bilirubin 0.7 (0.2-1.3) mg/dL AST 150 H (17-59) U/L ALT 141 H (4-49) U/L Alkaline Phosphatase 96 (38-126) U/L Total Protein 7.3 (6.3-8.2) g/dL Albumin 4.7 (3.5-5.0) g/dL Lipase 151 (23-300) U/L Serum Alcohol 159 mg/dL Disposition Clinical Impression: Abdominal pain Disposition: HOME SELF-CARE Condition: Good Instructions (If sedation given, give patient instructions): Abdominal Pain (ED) Is patient prescribed a controlled substance at d/c from ED?: No Referrals: None,Stated [Primary Care Provider] - 1-2 days Time of Disposition: 02:20
[2024-04-11 01:36] LABS: ALT 141 U/L (4-49); AST 150 U/L (17-59); African American GFR (CKD) >90 (>60 ml/min/1.73 sqM); Albumin 4.7 g/dL (3.5-5.0); Alkaline Phosphatase 96 U/L (38-126); Anion Gap 10 mmol/L; Blood Urea Nitrogen 8 mg/dL (9-20); Calcium 9.9 mg/dL (8.4-10.2); Carbon Dioxide 25 mmol/L (22-30); Chloride 104 mmol/L (98-107); Glucose 92 mg/dL (74-99); Lipase 151 U/L (23-300); Non-African American GFR(CKD) >90 (>60 ml/min/1.73 sqM); Potassium 4.1 mmol/L (3.5-5.1); Sodium 139 mmol/L (137-145); Total Bilirubin 0.7 mg/dL (0.2-1.3); Total Protein 7.3 g/dL (6.3-8.2)
[2024-04-11 01:41] LABS: Alcohol 159 mg/dL
[2024-04-11 02:06] LABS: Basophils % (A) 1 %; Eosinophils # (A) 0.5 k/uL (0-0.7); Eosinophils % (A) 7 %; HCT 43.1 % (39.0-53.0); HGB 15.6 gm/dL (13.0-17.5); Lymphocytes # (A) 2.5 k/uL (1.0-4.8); Lymphocytes % (A) 35 %; MCH 36.8 pg (25.0-35.0); MCHC 36.1 g/dL (31.0-37.0); MCV 102.1 fL (80.0-100.0); Mean Platelet Volume 7.9; Monocytes # (A) 0.3 k/uL (0-1.0); Monocytes % (A) 4 %; Neutrophils # (A) 3.6 k/uL (1.3-7.7); Neutrophils % (A) 51 %; Platelet Count 207 k/uL (150-450); RBC 4.22 m/uL (4.30-5.90); RDW 12.5 % (11.5-15.5); WBC 7.1 k/uL (3.8-10.6)
[2024-04-11 02:29] VITALS: BP 126/104; PULSE 87; RESP 18
== END 2024-04-11 02:29 | disposition home or self-care (01) ==
LOC: EC 00:48
DX: R10.13 Epigastric pain (principal); F10.20 Alcohol dependence, uncomplicated; F17.200 Nicotine dependence, unspecified, uncomplicated; Y90.6 Blood alcohol level of 120-199 mg/100 ml
CPT/HCPCS: 36415; 80053; 80320; 83690; 85025; 99284

== ENCOUNTER 2025-01-05 05:19 | Emergency (ER) | payer OTHER ==
[2025-01-05] MEDS: SODIUM CHLORIDE 0.9% 1,000 ML IV ONE (06:07)
[2025-01-05] MEDS: SODIUM CHLORIDE 0.9% 500 ML 500 ML IV ONE (06:08)
--- NOTE | 2025-01-05 06:09 | ED ---
Alcohol HPI - General Chief Complaint: Alcohol Stated Complaint: abd pain,NV Time Seen by Provider: 01/05/25 06:08 Source: patient, RN notes reviewed Mode of arrival: ambulatory Limitations: no limitations - History of Present Illness Initial Comments: 39-year-old male presented to ER for evaluation of nausea, vomiting and abdominal pain. Patient has a past medical history significant of pancreatitis and states this pain feels similar. Patient is also an alcoholic who typically consumes 1 pint a day. He states he has been increasing to about 1/5 a day to "keep the shakes away". He denies any history of withdrawal seizures or DTs. Last drink was about 4am. Patient reports for the past 3 days he has been having a burning epigastric abdominal discomfort with radiation to his right flank. He also admits to nausea and vomiting. Denies any hematic emesis or coffee-ground emesis. Denies any urinary complaints or change in bowel habits. He has not taken anything for his pain at this time. Patient denies any previous abdominal surgeries. He admits to chills with nausea and vomiting but denies any known fevers. No chest pain, shortness of breath or other complaints at this time. No SI or HI. - Related Data Home Medications Medication Instructions Recorded Confirmed Dextroamphetamine/Amphetamine 30 mg PO DAILY 05/23/23 07/22/23 [Adderall Xr 30 mg Capsule] Dextroamphetamine/Amphetamine 10 mg PO W/LUNCH 05/23/23 07/22/23 [Adderall] Loratadine [Claritin] 10 mg PO DAILY 05/23/23 07/22/23 Multivitamins, Thera [Multivitamin 1 tab PO DAILY 07/22/23 07/22/23 (formulary)] Pantoprazole [Protonix] 40 mg PO HS 07/22/23 07/22/23 Psyllium Husk [Metamucil] 0.4 gm PO HS 07/22/23 07/22/23 Previous Rx's Medication Instructions Recorded Famotidine [Pepcid] 20 mg PO BID #14 tablet 02/19/24 Allergies Allergy/AdvReac Type Severity Reaction Status Date / Time No Known Allergies Allergy Verified 01/05/25 05:23 Review of Systems ROS Statement: Those systems with pertinent positive or pertinent negative responses have been documented in the HPI. ROS Other: All systems not noted in ROS Statement are negative. Past Medical History Additional Past Medical History / Comment(s): Pancreatitis, kidney stone History of Any Multi-Drug Resistant Organisms: None Reported Past Surgical History: Appendectomy Additional Past Surgical History / Comment(s): left partial nephrectomy Past Anesthesia/Blood Transfusion Reactions: No Reported Reaction Past Psychological History: ADD/ADHD Smoking Status: Current every day smoker Past Alcohol Use History: Abuse, Daily, Heavy Past Drug Use History: Marijuana General Exam Limitations: no limitations General appearance: alert, in no apparent distress, appears intoxicated Respiratory exam: Present: normal lung sounds bilaterally. Absent: respiratory distress, wheezes, rales, rhonchi, stridor Cardiovascular Exam: Present: regular rate, normal rhythm, normal heart sounds. Absent: systolic murmur, diastolic murmur, rubs, gallop, clicks GI/Abdominal exam: Present: soft, tenderness (epigastric/RUQ), normal bowel sia nds Extremities exam: Present: normal inspection, full ROM, normal capillary refill. Absent: tenderness, pedal edema, joint swelling, calf tenderness Neurological exam: Present: alert, oriented X3, CN II-XII intact Skin exam: Present: warm, dry, intact, normal color. Absent: rash Course Vital Signs 01/05/25 01/05/25 05:23 06:38 Temperature 97.8 F Pulse Rate 107 H 96 Respiratory 18 18 Rate Blood Pressure 162/102 138/92 O2 Sat by Pulse 99 99 Oximetry Medical Decision Making - Lab Data Result diagrams: 01/05/25 05:59 01/05/25 05:59 Lab Results 01/05/25 01/05/25 01/05/25 Range/Units 05:59 05:59 06:08 WBC 6.2 (3.8-10.6) k/uL RBC 4.41 (4.30-5.90) m/uL Hgb 15.4 (13.0-17.5) gm/dL Hct 45.1 (39.0-53.0) % MCV 102.2 H (80.0-100.0) fL MCH 34.8 (25.0-35.0) pg MCHC 34.1 (31.0-37.0) g/dL RDW 12.4 (11.5-15.5) % Plt Count 167 (150-450) k/uL MPV 7.5 Neutrophils % 38 % Lymphocytes % 43 % Monocytes % 4 % Eosinophils % 12 % Basophils % 1 % Neutrophils # 2.4 (1.3-7.7) k/uL Lymphocytes # 2.7 (1.0-4.8) k/uL Monocytes # 0.2 (0-1.0) k/uL Eosinophils # 0.7 (0-0.7) k/uL Basophils # 0.0 (0-0.2) k/uL Sodium 139 (137-145) mmol/L Potassium 4.1 (3.5-5.1) mmol/L Chloride 102 (98-107) mmol/L Carbon Dioxide 23 (22-30) mmol/L Anion Gap 14 mmol/L BUN 7 L (9-20) mg/dL Creatinine 0.70 (0.66-1.25) mg/dL Est GFR (CKD-EPI)AfAm >90 (>60 ml/min/1.73 sqM) Est GFR (CKD-EPI)NonAf >90 (>60 ml/min/1.73 sqM) Glucose 96 (74-99) mg/dL Plasma Lactic Acid Higinio 1.5 (0.7-2.0) mmol/L Calcium 9.2 (8.4-10.2) mg/dL Total Bilirubin 0.8 (0.2-1.3) mg/dL AST 144 H (17-59) U/L ALT 106 H (4-49) U/L Alkaline Phosphatase 97 (38-126) U/L Total Protein 7.6 (6.3-8.2) g/dL Albumin 4.6 (3.5-5.0) g/dL Amylase 51 (30-110) U/L Lipase 391 H (23-300) U/L Serum Alcohol 241 H* mg/dL - EKG Data -: EKG Interpreted by Me EKG Comments: EKG taken at 6: 33 showing a sinus rhythm. No ST segment elevations or depressions. No T wave inversions. Ventricular rate 96, [place] interval 152, QRS duration 102, QT/QTc 375/429 Disposition Clinical Impression: Abdominal pain, Alcoholic intoxication Disposition: HOME SELF-CARE Condition: Stable Instructions (If sedation given, give patient instructions): Abdominal Pain (ED), Alcohol Use Disorder (ED) Additional Instructions: Follow-up with PCP. I recommend a clear liquid diet and bowel rest. I also strongly recommend decreasing alcohol consumption. Return to the ER for any new or worsening concerns Is patient prescribed a controlled substance at d/c from ED?: No Referrals: None,Stated [Primary Care Provider] - 1-2 days Forms: Area PCPs, AA Leonor Oshea, Outpatient Counseling, Outpatient Therapy List Time of Disposition: 07:58
[2025-01-05 06:11] LABS: Basophils % (A) 1 %; Eosinophils # (A) 0.7 k/uL (0-0.7); Eosinophils % (A) 12 %; HCT 45.1 % (39.0-53.0); HGB 15.4 gm/dL (13.0-17.5); Lymphocytes # (A) 2.7 k/uL (1.0-4.8); Lymphocytes % (A) 43 %; MCH 34.8 pg (25.0-35.0); MCHC 34.1 g/dL (31.0-37.0); MCV 102.2 fL (80.0-100.0); Mean Platelet Volume 7.5; Monocytes # (A) 0.2 k/uL (0-1.0); Monocytes % (A) 4 %; Neutrophils # (A) 2.4 k/uL (1.3-7.7); Neutrophils % (A) 38 %; Platelet Count 167 k/uL (150-450); RBC 4.41 m/uL (4.30-5.90); RDW 12.4 % (11.5-15.5); WBC 6.2 k/uL (3.8-10.6)
[2025-01-05] MEDS: KETOROLAC 15 MG/ML 1 ML VIAL IVP STA (06:14)
[2025-01-05] MEDS: HYDROmorphone 0.5 MG/0.5 ML SYRINGE IVP STA (06:27)
[2025-01-05 06:29] LABS: ALT 106 U/L (4-49); AST 144 U/L (17-59); African American GFR (CKD) >90 (>60 ml/min/1.73 sqM); Albumin 4.6 g/dL (3.5-5.0); Alkaline Phosphatase 97 U/L (38-126); Amylase 51 U/L (30-110); Anion Gap 14 mmol/L; Blood Urea Nitrogen 7 mg/dL (9-20); Calcium 9.2 mg/dL (8.4-10.2); Carbon Dioxide 23 mmol/L (22-30); Chloride 102 mmol/L (98-107); Glucose 96 mg/dL (74-99); Lipase 391 U/L (23-300); Non-African American GFR(CKD) >90 (>60 ml/min/1.73 sqM); Potassium 4.1 mmol/L (3.5-5.1); Sodium 139 mmol/L (137-145); Total Bilirubin 0.8 mg/dL (0.2-1.3); Total Protein 7.6 g/dL (6.3-8.2)
[2025-01-05 06:44] LABS: Alcohol 241 mg/dL
[2025-01-05 09:08] VITALS: BP 127/89; PULSE 90; RESP 16; TEMP 97.6
[2025-01-05] MEDS: HYDROcodone/APAP 5-325MG 1 EACH TAB PO STA (09:13)
== END 2025-01-05 09:24 | disposition home or self-care (01) ==
LOC: EC 05:19
DX: R10.11 Right upper quadrant pain (principal); F10.129 Alcohol abuse with intoxication, unspecified; F17.200 Nicotine dependence, unspecified, uncomplicated; Y90.8 Blood alcohol level of 240 mg/100 ml or more
CPT/HCPCS: 36415; 93005; 80053; 82150; 83605; 83690; 85025; 80320; 99284; 96374; 96375; 96361; J1885; J1171

== ENCOUNTER 2025-01-21 17:03 | Emergency (ER) | payer OTHER ==
--- NOTE | 2025-01-21 17:20 | ED ---
Abdominal Pain HPI - General Chief Complaint: Abdominal Pain Stated Complaint: abd pain, NV Time Seen by Provider: 01/21/25 17:11 Source: patient, RN notes reviewed Mode of arrival: ambulatory Limitations: no limitations - History of Present Illness Initial Comments: 39-year-old male presenting to emergency department for complaint of epigastric abdominal pain with radiation to the back in addition to nausea and vomiting over the past 3 years days. Patient states that he has a history of pancreatitis and this feels similar as a flareup. He endorses associated chills and diaphoresis. Denies diarrhea, constipation, urinary complaints. States that he has been having oily stools. Patient does admit to chronic alcohol abuse drinking at least a pint of alcohol per day. States his last drink was approximately 1 hour ago. Denies history of alcohol withdrawal or DTs. - Related Data Home Medications Medication Instructions Recorded Confirmed Dextroamphetamine/Amphetamine 30 mg PO DIRECTED 05/23/23 01/21/25 [Adderall Xr 30 mg Capsule] Loratadine [Claritin] 10 mg PO DAILY 05/23/23 01/21/25 Pantoprazole [Protonix] 40 mg PO DIRECTED 07/22/23 01/21/25 Fluticasone Nasal [place] [Flonase 1 spray EA NOSTRIL DAILY 01/21/25 01/21/25 Nasal [place]] Fluticasone Propion/Salmeterol 1 puff INHALATION DIRECTED 01/21/25 01/21/25 [Wixela 250-50 Inhub] Previous Rx's Medication Instructions Recorded Ondansetron Odt [Zofran Odt] 4 mg PO Q8HR PRN #10 tab 01/21/25 Allergies Allergy/AdvReac Type Severity Reaction Status Date / Time No Known Allergies Allergy Verified 01/21/25 19:16 Review of Systems ROS Statement: Those systems with pertinent positive or pertinent negative responses have been documented in the HPI. ROS Other: All systems not noted in ROS Statement are negative. Past Medical History Additional Past Medical History / Comment(s): Pancreatitis, kidney stone History of Any Multi-Drug Resistant Organisms: None Reported Past Surgical History: Appendectomy Additional Past Surgical History / Comment(s): left partial nephrectomy Past Anesthesia/Blood Transfusion Reactions: No Reported Reaction Past Psychological History: ADD/ADHD Smoking Status: Current every day smoker Past Alcohol Use History: Abuse, Daily, Heavy Past Drug Use History: Marijuana General Exam Limitations: no limitations General appearance: alert, in no apparent distress Eye exam: Present: normal appearance, PERRL, EOMI. Absent: scleral icterus, conjunctival injection, periorbital swelling Neck exam: Present: normal inspection. Absent: tenderness, meningismus, lymphadenopathy Respiratory exam: Present: normal lung sounds bilaterally. Absent: respiratory distress, wheezes, rales, rhonchi, stridor Cardiovascular Exam: Present: regular rate, normal rhythm, normal heart sounds. Absent: systolic murmur, diastolic murmur, rubs, gallop, clicks GI/Abdominal exam: Present: soft, tenderness (epigastric ), normal bowel sounds. Absent: distended, guarding, rebound, rigid Extremities exam: Present: normal inspection, full ROM, normal capillary refill. Absent: tenderness, pedal edema, joint swelling, calf tenderness Back exam: Present: normal inspection. Absent: CVA tenderness (R), CVA tenderness (L) Course Vital Signs 01/21/25 01/21/25 17:08 19:24 Temperature 98.2 F 98.7 F Pulse Rate 114 H 103 H Respiratory 17 16 Rate Blood Pressure 145/102 121/96 O2 Sat by Pulse 99 99 Oximetry Medical Decision Making - Medical Decision Making Was pt. sent in by a medical professional or institution (KHANH Britt, [employer], urgent care, hospital, or fdc...) When possible be specific @ -No Did you speak to anyone other than the patient for history (EMS, parent, family, police, friend...)? What history was obtained from this source @ -No Did you review nursing and triage notes (agree or disagree)? Why? @ -I reviewed and agree with nursing and triage notes Were old charts reviewed (outside hosp., previous admission, EMS record, old EKG, old radiological studies, urgent care reports/EKG's, fdc records)? Report findings @ -No old charts were reviewed Differential Diagnosis (chest pain, altered mental status, abdominal pain women, abdominal pain men, vaginal bleeding, weakness, fever, dyspnea, syncope, headache, dizziness, GI bleed, back pain, seizure, CVA, palpatations, mental health, musculoskeletal)? @ -Differential Abdominal Pain Men: Appendicitis, cholecystitis, diverticulosis, ischemic bowel, pancreatitis, hepatitis, UTI, gastroenteritis, AAA, incarcerated hernia, bowel obstruction, constipation, inflammatory bowel, hepatitis, peptic ulcer disease, splenic infarction, perforated viscus, testicular torsion, this is not meant to be an all-inclusive list EKG interpreted by me (3pts min.). @ -None X-rays interpreted by me (1pt min.). @ -None done CT interpreted by me (1pt min.). @ -None done U/S interpreted by me (1pt. min.). @ -None done What testing was considered but not performed or refused? (CT, X-rays, U/S, la bs)? Why? @ -None What meds were considered but not given or refused? Why? @ -None Did you discuss the management of the patient with other professionals (professionals i.e. , PA, [employer], lab, RT, psych nurse, medical social worker, tower hoist operator, teacher, classifications officer cc/cm, case monitor)? Give summary @ -No Was smoking cessation discussed for >3mins.? @ -No Was critical care preformed (if so, how long)? @ -No Were there social determinants of health that impacted care today? How? (Homelessness, low income, unemployed, alcoholism, drug addiction, transportation, low edu. Level, literacy, decrease access to med. care, half-way, rehab)? @ -No Was there de-escalation of care discussed even if they declined (Discuss DNR or withdrawal of care, Hospice)? DNR status @ -No What co-morbidities impacted this encounter? (DM, HTN, Smoking, COPD, CAD, Cancer, CVA, ARF, Chemo, Hep., AIDS, mental health diagnosis, sleep apnea, morbid obesity)? @ -None Was patient admitted / discharged? Hospital course, mention meds given and route, prescriptions, significant lab abnormalities, going to OR and other pertinent info. @ -Discharge. 39-year-old male presents emergency department with epigastric abdominal pain. He is hypertensive on arrival with blood pressure 145/102 tachycardic with a heart rate of 114. This may be secondary to alcohol use in addition to pain. Patient is reproducible epigastric abdominal pain to palpation with no signs of rebound tenderness or rigidity. He is provided with fluids in addition to antiemetics and pain medications. Laboratory testing reveals an elevated lipase at 665, amylase within normal. Patient has mild transaminitis with AST of 302 ALT 154 likely secondary to chronic alcohol use. Electrolytes within normal. Urinalysis no signs of infection. Serum alcohol le armin of 167. On reevaluation patient states he still in mild pain. Is provided with additional fluids and pain medication. On secondary reevaluation patient is feeling much better requesting discharge at this time. Case is discussed with Dr. Thakkar Undiagnosed new problem with uncertain prognosis? @ -No Drug Therapy requiring intensive monitoring for toxicity (Heparin, Nitro, Insul in, Cardizem)? @ -No Were any procedures done? @ -No Diagnosis/symptom? @ -Pancreatitis Acute, or Chronic, or Acute on Chronic? @ -Acute Uncomplicated (without systemic symptoms) or Complicated (systemic symptoms)? @ -Uncomplicated Side effects of treatment? @ -No Exacerbation, Progression, or Severe Exacerbation? @ -No Poses a threat to life or bodily function? How? (Chest pain, USA, RI, pneumonia, PE, COPD, DKA, ARF, appy, cholecystitis, CVA, Diverticulitis, Homicidal, Suicidal, threat to staff... and all critical care pts) @ -No - Lab Data Result diagrams: 01/21/25 17:27 01/21/25 17:27 Lab Results 01/21/25 01/21/25 01/21/25 Range/Units 17:27 17:27 17:27 WBC 6.14 (4.50-10.00) 10*3/uL RBC 4.29 L (4.40-5.60) 10*6/uL Hgb 15.6 (13.0-17.0) g/dL Hct 42.1 (39.6-50.0) % MCV 98.1 H (80.0-97.0) fL MCH 36.4 H (27.0-32.0) pg MCHC 37.1 H (32.0-37.0) g/dL Plt Count 153 (140-440) 10*3/uL MPV 9.7 (9.5-12.2) fL Immature Gran % (Auto) 0.2 % Neutrophils % 51.1 % Lymphocytes % 33.6 % Monocytes % 9.4 % Eosinophils % 4.9 % Basophils % 0.8 % Immature Gran # 0.01 (0.00-0.04) 10*3/uL Neutrophils # 3.14 (1.80-7.70) 10*3/uL Lymphocytes # 2.06 (0.90-5.00) 10*3/uL Monocytes # 0.58 (0.20-1.00) 10*3/uL Eosinophils # 0.30 (0.04-0.35) 10*3/uL Basophils # 0.05 (0.00-0.10) 10*3/uL Sodium 136 L (137-145) mmol/L Potassium 4.1 (3.5-5.1) mmol/L Chloride 99 (98-107) mmol/L Carbon Dioxide 26 (22-30) mmol/L Anion Gap 11 mmol/L BUN 7 L (9-20) mg/dL Creatinine 0.67 (0.66-1.25) mg/dL Est GFR (CKD-EPI)AfAm >90 (>60 ml/min/1.73 sqM) Est GFR (CKD-EPI)NonAf >90 (>60 ml/min/1.73 sqM) Glucose 114 H (74-99) mg/dL Plasma Lactic Acid Higinio 1.9 (0.7-2.0) mmol/L Calcium 9.5 (8.4-10.2) mg/dL Total Bilirubin 0.9 (0.2-1.3) mg/dL AST 302 H (17-59) U/L ALT 154 H (4-49) U/L Alkaline Phosphatase 100 (38-126) U/L Total Protein 7.4 (6.3-8.2) g/dL Albumin 4.6 (3.5-5.0) g/dL Amylase 62 (30-110) U/L Lipase 665 H (23-300) U/L Urine Color Urine Appearance (Clear) Urine pH (5.0-8.0) Ur Specific [place] (1.001-1.035) Urine Protein (Negative) Urine Glucose (UA) (Negative) Urine Ketones (Negative) Urine Blood (Negative) Urine Nitrite (Negative) Urine Bilirubin (Negative) Urine Urobilinogen (<2.0) mg/dL Ur Leukocyte Esterase (Negative) Serum Alcohol 167 mg/dL 01/21/25 Range/Units 17:34 WBC (4.50-10.00) 10*3/uL RBC (4.40-5.60) 10*6/uL Hgb (13.0-17.0) g/dL Hct (39.6-50.0) % MCV (80.0-97.0) fL MCH (27.0-32.0) pg MCHC (32.0-37.0) g/dL Plt Count (140-440) 10*3/uL MPV (9.5-12.2) fL Immature Gran % (Auto) % Neutrophils % % Lymphocytes % % Monocytes % % Eosinophils % % Basophils % % Immature Gran # (0.00-0.04) 10*3/uL Neutrophils # (1.80-7.70) 10*3/uL Lymphocytes # (0.90-5.00) 10*3/uL Monocytes # (0.20-1.00) 10*3/uL Eosinophils # (0.04-0.35) 10*3/uL Basophils # (0.00-0.10) 10*3/uL Sodium (137-145) mmol/L Potassium (3.5-5.1) mmol/L Chloride (98-107) mmol/L Carbon Dioxide (22-30) mmol/L Anion Gap mmol/L BUN (9-20) mg/dL Creatinine (0.66-1.25) mg/dL Est GFR (CKD-EPI)AfAm (>60 ml/min/1.73 sqM) Est GFR (CKD-EPI)NonAf (>60 ml/min/1.73 sqM) Glucose (74-99) mg/dL Plasma Lactic Acid Higinio (0.7-2.0) mmol/L Calcium (8.4-10.2) mg/dL Total Bilirubin (0.2-1.3) mg/dL AST (17-59) U/L ALT (4-49) U/L Alkaline Phosphatase (38-126) U/L Total Protein (6.3-8.2) g/dL Albumin (3.5-5.0) g/dL Amylase (30-110) U/L Lipase (23-300) U/L Urine Color Light Yellow Urine Appearance Clear (Clear) Urine pH 8.0 (5.0-8.0) Ur Specific [place] 1.008 (1.001-1.035) Urine Protein Negative (Negative) Urine Glucose (UA) Negative (Negative) Urine Ketones Negative (Negative) Urine Blood Negative (Negative) Urine Nitrite Negative (Negative) Urine Bilirubin Negative (Negative) Urine Urobilinogen <2.0 (<2.0) mg/dL Ur Leukocyte Esterase Negative (Negative) Serum Alcohol mg/dL Disposition Clinical Impression: Chronic pancreatitis Disposition: HOME SELF-CARE Condition: Stable Instructions (If sedation given, give patient instructions): Pancreatitis (ED) Additional Instructions: Please return to the Emergency Department if symptoms worsen or any other concerns. Prescriptions: Ondansetron Odt [Zofran Odt] 4 mg PO Q8HR PRN #10 tab PRN Reason: Nausea Is patient prescribed a controlled substance at d/c from ED?: No Referrals: None,Stated [Primary Care Provider] - 1-2 days Time of Disposition: 19:14
[2025-01-21] MEDS: ONDANSETRON 4 MG/2 ML VIAL IVP STA (17:30)
[2025-01-21] MEDS: KETOROLAC 15 MG/ML 1 ML VIAL IVP STA (17:30)
[2025-01-21] MEDS: SODIUM CHLORIDE 0.9% 1,000 ML IV ONE (17:31)
[2025-01-21 17:39] LABS: Basophils # (A) 0.05 10*3/uL (0.00-0.10); Basophils % (A) 0.8 %; Eosinophils % (A) 4.9 %; HCT 42.1 % (39.6-50.0); HGB 15.6 g/dL (13.0-17.0); Lymphocytes # (A) 2.06 10*3/uL (0.90-5.00); Lymphocytes % (A) 33.6 %; MCH 36.4 pg (27.0-32.0); MCHC 37.1 g/dL (32.0-37.0); MCV 98.1 fL (80.0-97.0); Mean Platelet Volume 9.7 fL (9.5-12.2); Monocytes # (A) 0.58 10*3/uL (0.20-1.00); Monocytes % (A) 9.4 %; Neutrophils # (A) 3.14 10*3/uL (1.80-7.70); Neutrophils % (A) 51.1 %; Platelet Count 153 10*3/uL (140-440); RBC 4.29 10*6/uL (4.40-5.60); RDW 12.1 % (11.5-14.5); WBC 6.14 10*3/uL (4.50-10.00)
[2025-01-21 17:41] LABS: Appearance,Urine Clear (Clear); Bilirubin,Urine Negative (Negative); Blood,Urine Negative (Negative); Color,Urine Light Yellow; Glucose,Urine (UA) Negative (Negative); Ketones,Urine Negative (Negative); Leukocyte Esterase,Urine Negative (Negative); Nitrite,Urine Negative (Negative); Protein,Urine Negative (Negative); Specific Gravity,Urine 1.008 (1.001-1.035); Urobilinogen,Urine <2.0 mg/dL (<2.0)
[2025-01-21 17:52] LABS: ALT 154 U/L (4-49); AST 302 U/L (17-59); African American GFR (CKD) >90 (>60 ml/min/1.73 sqM); Albumin 4.6 g/dL (3.5-5.0); Alkaline Phosphatase 100 U/L (38-126); Amylase 62 U/L (30-110); Anion Gap 11 mmol/L; Blood Urea Nitrogen 7 mg/dL (9-20); Calcium 9.5 mg/dL (8.4-10.2); Carbon Dioxide 26 mmol/L (22-30); Chloride 99 mmol/L (98-107); Glucose 114 mg/dL (74-99); Lipase 665 U/L (23-300); Non-African American GFR(CKD) >90 (>60 ml/min/1.73 sqM); Potassium 4.1 mmol/L (3.5-5.1); Sodium 136 mmol/L (137-145); Total Bilirubin 0.9 mg/dL (0.2-1.3); Total Protein 7.4 g/dL (6.3-8.2)
[2025-01-21 18:13] LABS: Alcohol 167 mg/dL
[2025-01-21] MEDS: HYDROmorphone 1 MG/ML 1 ML SYRINGE IVP STA (18:39)
[2025-01-21] MEDS: SODIUM CHLORIDE 0.9% 1,000 ML IV STA (18:40)
[2025-01-21 19:25] VITALS: BP 121/96; PULSE 103; RESP 16; TEMP 98.7
== END 2025-01-21 19:26 | disposition home or self-care (01) ==
LOC: EC 17:03
DX: K86.1 Other chronic pancreatitis (principal); F17.200 Nicotine dependence, unspecified, uncomplicated; F10.10 Alcohol abuse, uncomplicated; Y90.6 Blood alcohol level of 120-199 mg/100 ml
CPT/HCPCS: 36415; 80053; 82150; 83605; 83690; 85025; 81003; 80320; 99284; 96374; 96375 ×2; 96361 ×2; J2405; J1171; J1885

== ENCOUNTER 2025-01-26 02:53 | Observation (INO) | payer OTHER ==
[2025-01-26] MEDS: SODIUM CHLORIDE 0.9% 1,000 ML IV SCH ×2 (03:43→07:26)
[2025-01-26] MEDS: KETOROLAC 15 MG/ML 1 ML VIAL IVP STA (03:44)
[2025-01-26] MEDS: diphenhydrAMINE 50 MG/ML 1 ML VIAL IVP STA (03:44)
[2025-01-26 03:45] LABS: Basophils # (A) 0.05 10*3/uL (0.00-0.10); Basophils % (A) 0.9 %; Eosinophils # (A) 0.56 10*3/uL (0.04-0.35); Eosinophils % (A) 9.9 %; HCT 42.5 % (39.6-50.0); HGB 15.4 g/dL (13.0-17.0); Lymphocytes # (A) 1.96 10*3/uL (0.90-5.00); Lymphocytes % (A) 34.8 %; MCH 36.6 pg (27.0-32.0); MCHC 36.2 g/dL (32.0-37.0); Mean Platelet Volume 10.1 fL (9.5-12.2); Monocytes # (A) 0.53 10*3/uL (0.20-1.00); Monocytes % (A) 9.4 %; Neutrophils # (A) 2.53 10*3/uL (1.80-7.70); Neutrophils % (A) 44.8 %; Platelet Count 172 10*3/uL (140-440); RBC 4.21 10*6/uL (4.40-5.60); WBC 5.64 10*3/uL (4.50-10.00)
[2025-01-26] MEDS: METOCLOPRAMIDE 5 MG/ML 2 ML VIAL IVP STA (03:45)
[2025-01-26] MEDS: MORPHINE SULFATE 2 MG/ML SYRINGE IVP ONE (03:45)
[2025-01-26] MEDS: LORazepam 2 MG/ML INJ IV STA (03:46)
[2025-01-26 04:02] LABS: ALT 153 U/L (4-49); AST 232 U/L (17-59); African American GFR (CKD) >90 (>60 ml/min/1.73 sqM); Albumin 4.5 g/dL (3.5-5.0); Alkaline Phosphatase 94 U/L (38-126); Anion Gap 9 mmol/L; Blood Urea Nitrogen 9 mg/dL (9-20); Calcium 9.3 mg/dL (8.4-10.2); Carbon Dioxide 27 mmol/L (22-30); Chloride 102 mmol/L (98-107); Glucose 99 mg/dL (74-99); Lipase 1370 U/L (23-300); Non-African American GFR(CKD) >90 (>60 ml/min/1.73 sqM); Potassium 4.3 mmol/L (3.5-5.1); Sodium 138 mmol/L (137-145); Total Bilirubin 0.8 mg/dL (0.2-1.3); Total Protein 7.5 g/dL (6.3-8.2)
[2025-01-26 04:05] LABS: Alcohol 191 mg/dL
[2025-01-26] MEDS ORDERED: NALOXONE 0.4 MG/ML 1 ML VIAL IV PRN (06:16)
--- NOTE | 2025-01-26 06:16 | ED ---
Abdominal Pain HPI - General Chief Complaint: Abdominal Pain Stated Complaint: NV, abd pain Time Seen by Provider: 01/26/25 03:05 Source: patient Mode of arrival: ambulatory Limitations: no limitations - History of Present Illness Initial Comments: 39-year-old male who presents to the emergency department with epigastric pain. Patient states that he is an alcoholic. He has been drinking daily as he does have shakes when he does not drink. Also reports to a history of pancreatitis and because he has been drinking, he has significant epigastric pain. He admits nausea with vomiting. Patient also admits to marijuana use. Reports that he did drink earlier today but could not drink as much as he typically does. Denies any fevers. No back pain. No numbness, tingling or weakness into his legs. No changes in his bowel or bladder habits. No other alleviating, precipitating or modifying factors - Related Data Home Medications Medication Instructions Recorded Confirmed Dextroamphetamine/Amphetamine 30 mg PO DAILY 05/23/23 01/26/25 [Adderall Xr 30 mg Capsule] Loratadine [Claritin] 10 mg PO DAILY 05/23/23 01/26/25 Pantoprazole [Protonix] 40 mg PO DAILY 07/22/23 01/26/25 Fluticasone Nasal [place] [Flonase 1 spray EA NOSTRIL DAILY 01/21/25 01/26/25 Nasal [place]] Fluticasone Propion/Salmeterol 1 puff INHALATION RT-BID 01/21/25 01/26/25 [Wixela 250-50 Inhub] Dextroamphetamine/Amphetamine 10 mg PO DAILY@1200 01/26/25 01/26/25 [Adderall] Previous Rx's Medication Instructions Recorded Ondansetron Odt [Zofran Odt] 4 mg PO Q8HR PRN #10 tab 01/21/25 Allergies Allergy/AdvReac Type Severity Reaction Status Date / Time No Known Allergies Allergy Verified 01/26/25 11:06 Review of Systems ROS Statement: Those systems with pertinent positive or pertinent negative responses have been documented in the HPI. ROS Other: All systems not noted in ROS Statement are negative. Past Medical History Additional Past Medical History / Comment(s): Pancreatitis, kidney stone History of Any Multi-Drug Resistant Organisms: None Reported Past Surgical History: Appendectomy Additional Past Surgical History / Comment(s): left partial nephrectomy Past Anesthesia/Blood Transfusion Reactions: No Reported Reaction Past Psychological History: ADD/ADHD Smoking Status: Current every day smoker Past Alcohol Use History: Abuse, Daily, Heavy Past Drug Use History: Marijuana General Exam Limitations: no limitations General appearance: alert, in no apparent distress Head exam: Present: atraumatic, normocephalic, normal inspection Eye exam: Present: normal appearance, PERRL, EOMI. Absent: scleral icterus, conjunctival injection, periorbital swelling ENT exam: Present: normal exam, mucous membranes moist Neck exam: Present: normal inspection. Absent: tenderness, meningismus, lymphadenopathy Respiratory exam: Present: normal lung sounds bilaterally. Absent: respiratory distress, wheezes, rales, rhonchi, stridor Cardiovascular Exam: Present: regular rate, normal rhythm, normal heart sounds. Absent: systolic murmur, diastolic murmur, rubs, gallop, clicks GI/Abdominal exam: Present: soft, tenderness (Epigastric pain), normal bowel sounds. Absent: distended, guarding, rebound, rigid Extremities exam: Present: normal inspection, full ROM, normal capillary refill. Absent: tenderness, pedal edema, joint swelling, calf tenderness Back exam: Present: normal inspection Neurological exam: Present: alert, oriented X3, CN II-XII intact Psychiatric exam: Present: normal affect, normal mood Skin exam: Present: warm, dry, intact, normal color. Absent: rash Course Vital Signs 01/26/25 01/26/25 01/26/25 02:58 04:00 05:00 Temperature 98.5 F Pulse Rate 114 H 86 87 Respiratory 20 13 13 Rate Blood Pressure 147/99 123/96 104/77 O2 Sat by Pulse 98 99 97 Oximetry 01/26/25 07:00 Temperature 97.7 F Pulse Rate 82 Respiratory 12 Rate Blood Pressure 108/79 O2 Sat by Pulse 99 Oximetry Medical Decision Making - Medical Decision Making Was pt. sent in by a medical professional or institution (, PA, [employer], urgent care, hospital, or usp...) When possible be specific @ -No Did you speak to anyone other than the patient for history (EMS, parent, family, police, friend...)? What history was obtained from this source @ -No Did you review nursing and triage notes (agree or disagree)? Why? @ -I reviewed and agree with nursing and triage notes Were old charts reviewed (outside hosp., previous admission, EMS record, old EKG, old radiological studies, urgent care reports/EKG's, usp records)? Report findings @ -I reviewed the discharge summary from May 2023 when patient was hospitalized for alcoholic pancreatitis Differential Diagnosis (chest pain, altered mental status, abdominal pain women, abdominal pain men, vaginal bleeding, weakness, fever, dyspnea, syncope, headache, dizziness, GI bleed, back pain, seizure, CVA, palpatations, mental health, musculoskeletal)? @ -Differential Abdominal Pain Men: Appendicitis, cholecystitis, diverticulosis, ischemic bowel, pancreatitis, hepatitis, UTI, gastroenteritis, AAA, incarcerated hernia, bowel obstruction, constipation, inflammatory bowel, hepatitis, peptic ulcer disease, splenic infarction, perforated viscus, testicular torsion, this is not meant to be an all-inclusive list EKG interpreted by me (3pts min.). @ -Yes and demonstrates sinus tachycardia with a rate of 100. OK interval 138. QRS 95. QTc of 410. No acute ST segment elevations or depressions X-rays interpreted by me (1pt min.). @ -None done CT interpreted by me (1pt min.). @ -None done U/S interpreted by me (1pt. min.). @ -None done What testing was considered but not performed or refused? (CT, X-rays, U/S, labs)? Why? @ -None What meds were considered but not given or refused? Why? @ -None Did you discuss the management of the patient with other professionals (professionals i.e. , PA, [employer], lab, RT, psych nurse, social worker school, prime minister, teacher, drug abuse resistance education officer, piano case maker)? Give summary @ -Spoke with Dr. Sanders for the admission Was smoking cessation discussed for >3mins.? @ -No Was critical care preformed (if so, how long)? @ -No Were there social determinants of health that impacted care today? How? ( Homelessness, low income, unemployed, alcoholism, drug addiction, transportation, low edu. Level, literacy, decrease access to med. care, care home, rehab)? @ -No Was there de-escalation of care discussed even if they declined (Discuss DNR or withdrawal of care, Hospice)? DNR status @ -No What co-morbidities impacted this encounter? (DM, HTN, Smoking, COPD, CAD, Cancer, CVA, ARF, Chemo, Hep., AIDS, mental health diagnosis, sleep apnea, morbid obesity)? @ -Alcohol abuse, chronic pancreatitis Was patient admitted / discharged? Hospital course, mention meds given and route, prescriptions, significant lab abnormalities, going to OR and other pertinent info. @ -Upon arrival patient seen and evaluated in bed 7. Thorough history and physical exam was performed. IV was established. Patient was administered IV fluids, Toradol, Reglan and Pepcid. Laboratory studies are conducted which demonstrate an elevated lipase level. Patient continues to have pain and therefore was given a dose of morphine and Ativan. I discussed results with the patient. I recommended admission as patient does have acute pancreatitis, alcohol intoxication with concern for alcohol withdrawal. Patient was agreeable to this. Spoke with Dr. Sanders for the admission Undiagnosed new problem with uncertain prognosis? @ -No Drug Therapy requiring intensive monitoring for toxicity (Heparin, Nitro, Insulin, Cardizem)? @ -No Were any procedures done? @ -No Diagnosis/symptom? @ -Acute epigastric abdominal pain, acute alcohol intoxication, acute pancreatitis, concern for alcohol withdrawal, chronic alcohol abuse Acute, or Chronic, or Acute on Chronic? @ -Acute on chronic Uncomplicated (without systemic symptoms) or Complicated (systemic symptoms)? @ -Complicated Side effects of treatment? @ -No Exacerbation, Progression, or Severe Exacerbation? @ -No Poses a threat to life or bodily function? How? (Chest pain, USA, RI, pneumonia, PE, COPD, DKA, ARF, appy, cholecystitis, CVA, Diverticulitis, Homicidal, Suicidal, threat to staff... and all critical care pts) @ -No - Lab Data Result diagrams: 01/26/25 03:22 01/26/25 03:22 Lab Results 01/26/25 01/26/25 01/26/25 Range/Units 03:22 03:22 03:22 WBC 5.64 (4.50-10.00) 10*3/uL RBC 4.21 L (4.40-5.60) 10*6/uL Hgb 15.4 (13.0-17.0) g/dL Hct 42.5 (39.6-50.0) % MCV 101.0 H (80.0-97.0) fL MCH 36.6 H (27.0-32.0) pg MCHC 36.2 (32.0-37.0) g/dL Plt Count 172 (140-440) 10*3/uL MPV 10.1 (9.5-12.2) fL Immature Gran % (Auto) 0.2 % Neutrophils % 44.8 % Lymphocytes % 34.8 % Monocytes % 9.4 % Eosinophils % 9.9 % Basophils % 0.9 % Immature Gran # 0.01 (0.00-0.04) 10*3/uL Neutrophils # 2.53 (1.80-7.70) 10*3/uL Lymphocytes # 1.96 (0.90-5.00) 10*3/uL Monocytes # 0.53 (0.20-1.00) 10*3/uL Eosinophils # 0.56 H (0.04-0.35) 10*3/uL Basophils # 0.05 (0.00-0.10) 10*3/uL Sodium 138 (137-145) mmol/L Potassium 4.3 (3.5-5.1) mmol/L Chloride 102 (98-107) mmol/L Carbon Dioxide 27 (22-30) mmol/L Anion Gap 9 mmol/L BUN 9 (9-20) mg/dL Creatinine 0.77 (0.66-1.25) mg/dL Est GFR (CKD-EPI)AfAm >90 (>60 ml/min/1.73 sqM) Est GFR (CKD-EPI)NonAf >90 (>60 ml/min/1.73 sqM) Glucose 99 (74-99) mg/dL Plasma Lactic Acid Higinio 1.5 (0.7-2.0) mmol/L Calcium 9.3 (8.4-10.2) mg/dL Total Bilirubin 0.8 (0.2-1.3) mg/dL AST 232 H (17-59) U/L ALT 153 H (4-49) U/L Alkaline Phosphatase 94 (38-126) U/L Total Protein 7.5 (6.3-8.2) g/dL Albumin 4.5 (3.5-5.0) g/dL Lipase 1370 H (23-300) U/L Serum Alcohol 191 mg/dL Disposition Clinical Impression: Chronic pancreatitis, Alcoholic intoxication, Abdominal pain Disposition: ADMITTED IP TO THIS HOSP Condition: Stable Is patient prescribed a controlled substance at d/c from ED?: No Time of Disposition: 06:16 Decision to Admit Reason: Admit from EC Decision Date: 01/26/25 Decision Time: 06:16
[2025-01-26] MEDS ORDERED: LORazepam 2 MG/ML INJ IV PRN ×3 (06:18)
[2025-01-26] MEDS ORDERED: LORazepam 1 MG/0.5 ML VIAL IV PRN (08:18)
[2025-01-26] MEDS: KETOROLAC 15 MG/ML 1 ML VIAL IVP PRN (08:52)
--- NOTE | 2025-01-26 12:35 | P.HPIM ---
History of Present Illness Patient is a pleasant 39-year-old male with known history of alcohol abuse drinks about a pint of hard liquor every day came in with complaints of severe epigastric sharp abdominal pain 10/10 radiating to the back along with nausea vomiting. Patient is found to have elevated lipase of 1370 admitted for alcohol pancreatitis and patient is on IV normal saline at 130 which is being cut down to 100 cc at this time. Patient does have elevated MCV. REVIEW OF SYSTEMS: All other systems are negative except those mentioned in the HPI PHYSICAL EXAMINATION: GENERAL: The patient is alert and oriented x3, not in any acute distress. Well developed, well nourished. HEENT: Pupils are round and equally reacting to light. EOMI. No scleral icterus. No conjunctival pallor. Normocephalic, atraumatic. No pharyngeal erythema. No thyromegaly. CARDIOVASCULAR: S1 and S2 present. No murmurs, rubs, or gallops. PULMONARY: Chest is clear to auscultation, no wheezing or crackles. ABDOMEN: Soft tender in the epigastric area nondistended, normoactive bowel sounds. No palpable organomegaly. MUSCULOSKELETAL: No joint swelling or deformity. EXTREMITIES: No cyanosis, clubbing, or pedal edema. NEUROLOGICAL: Gross neurological examination did not reveal any focal deficits. SKIN: No rashes. Assessment and plan -Alcoholic pancreatitis: Patient will be made n.p.o., since there is a concern for alcoholic gastritis as well as will stop the Toradol patient will be started on morphine and/ or Dilaudid for pain. - Transaminitis secondary to alcoholic hepatitis - Alcohol withdrawal patient is on Ativan CIWA protocol which will be continued - Elevated MCV secondary to alcohol use thiamine multivitamin supplementation will be ordered -Nicotine use and alcohol abuse: Extensive counseling was provided regarding this DVT prophylaxis: Early ambulation Past Medical History Additional Past Medical History / Comment(s): Pancreatitis, kidney stone History of Any Multi-Drug Resistant Organisms: None Reported Past Surgical History: Appendectomy Additional Past Surgical History / Comment(s): left partial nephrectomy Past Anesthesia/Blood Transfusion Reactions: No Reported Reaction Past Psychological History: ADD/ADHD Smoking Status: Current some day smoker Past Alcohol Use History: Abuse, Daily, Heavy Past Drug Use History: Marijuana Medications and Allergies Home Medications Medication Instructions Recorded Confirmed Type Dextroamphetamine/Amphetamine 30 mg PO DAILY 05/23/23 01/26/25 History [Adderall Xr 30 mg Capsule] Loratadine [Claritin] 10 mg PO DAILY 05/23/23 01/26/25 History Pantoprazole [Protonix] 40 mg PO DAILY 07/22/23 01/26/25 History Fluticasone Nasal [place] [Flonase 1 spray EA NOSTRIL DAILY 01/21/25 01/26/25 History Nasal [place]] Fluticasone Propion/Salmeterol 1 puff INHALATION RT-BID 01/21/25 01/26/25 History [Wixela 250-50 Inhub] Ondansetron Odt [Zofran Odt] 4 mg PO Q8HR PRN #10 tab 01/21/25 01/26/25 Rx Dextroamphetamine/Amphetamine 10 mg PO DAILY@1200 01/26/25 01/26/25 History [Adderall] Allergies Allergy/AdvReac Type Severity Reaction Status Date / Time No Known Allergies Allergy Verified 01/26/25 11:06 Physical Exam Vitals: Vital Signs Temp Pulse Pulse Resp BP BP Pulse Ox 01/26/25 08:25 82 19 01/26/25 08:00 97.9 F 82 17 123/85 99 01/26/25 07:00 97.7 F 82 12 108/79 99 01/26/25 05:00 87 13 104/77 97 01/26/25 04:00 86 13 123/96 99 01/26/25 02:58 98.5 F 114 H 20 147/99 98 Intake and Output 01/25/25 01/26/25 01/26/25 22:59 06:59 14:59 Other: Voiding Method Toilet # Voids 3 # Bowel Movements 0 Weight 63.503 kg 63.503 kg Results CBC & Chem 7: 01/26/25 03:22 01/26/25 03:22 Labs: Abnormal Lab Results - Last 24 Hours (Table) 01/26/25 01/26/25 Range/Units 03:22 03:22 RBC 4.21 L (4.40-5.60) 10*6/uL MCV 101.0 H (80.0-97.0) fL MCH 36.6 H (27.0-32.0) pg Eosinophils # 0.56 H (0.04-0.35) 10*3/uL AST 232 H (17-59) U/L ALT 153 H (4-49) U/L Lipase 1370 H (23-300) U/L Thrombosis Risk Factor Assmnt - Choose All That Apply Any of the Below Risk Factors Present?: No Other Risk Factors: No Thrombosis Risk Factor Assessment Level: Very Low Risk
[2025-01-26] MEDS: MORPHINE SULFATE 2 MG/ML SYRINGE IVP PRN (12:36)
[2025-01-26] MEDS ORDERED: MORPHINE SULFATE 4 MG/ML SYRINGE IVP PRN (12:38)
[2025-01-26] MEDS: PANTOPRAZOLE 40 MG/10 ML VIAL IVP SCH (13:04)
[2025-01-26] MEDS: LORazepam 1 MG/0.5 ML VIAL IV PRN ×2 (13:11→15:12)
[2025-01-26] MEDS: HYDROmorphone 0.5 MG/0.5 ML SYRINGE IVP PRN (16:37)
[2025-01-26] MEDS: THIAMINE 100 MG TAB PO SCH (16:38)
[2025-01-27 10:09] LABS: BUN/Creat Ratio 9.25 Ratio (12.00-20.00); Blood Urea Nitrogen 7.4 mg/dL (9.0-27.0); Carbon Dioxide 23.5 mmol/L (21.6-31.8); Chloride 105 mmol/L (96-109); Glucose 100 mg/dL (70-110); Potassium 3.8 mmol/L (3.5-5.5); Sodium 139 mmol/L (135-145)
[2025-01-27 10:10] LABS: ALT 106 U/L (10-49); AST 124 U/L (14-35); Albumin 3.7 g/dL (3.8-4.9); Albumin/Globulin Ratio 1.85 Ratio (1.60-3.17); Alkaline Phosphatase 97 U/L (41-126); Calcium 8.2 mg/dL (8.7-10.3); Total Bilirubin 0.7 mg/dL (0.3-1.2); Total Protein 5.7 g/dL (6.2-8.2)
[2025-01-27 10:22] LABS: HCT 40.9 % (39.6-50.0); HGB 13.7 g/dL (13.0-17.0); MCH 35.9 pg (27.0-32.0); MCHC 33.5 g/dL (32.0-37.0); MCV 107.1 FL (80.0-97.0); Mean Platelet Volume 10.6 FL (9.5-12.2); NRBC Per 100 WBC 0 X 10*3/uL (0.00-0.01); Platelet Count 120 X 10*3/uL (140-440); RBC 3.82 X 10*6/uL (4.40-5.60); RDW 12.2 % (11.5-14.5); WBC 4.73 X 10*3/uL (4.50-10.00)
[2025-01-27 10:24] LABS: Lipase 877 U/L (14-60)
--- NOTE | 2025-01-27 11:19 | P.PN ---
Subjective Progress Note Date: 01/27/25 Patient is a pleasant 39-year-old male with known history of alcohol abuse drinks about a pint of hard liquor every day came in with complaints of severe epigastric sharp abdominal pain 10/10 radiating to the back along with nausea vomiting. Patient is found to have elevated lipase of 1370 admitted for alcohol pancreatitis and patient is on IV normal saline at 130 which is being cut down to 100 cc at this time. Patient does have elevated MCV. /19. Patient seen and examined. States abdominal pain is improved. Patient was started on clear liquid REVIEW OF SYSTEMS: CONSTITUTIONAL: No fever, no malaise,. CARDIOVASCULAR: No chest pain, no palpitations, no syncope. PULMONARY: No shortness of breath, no cough, GASTROINTESTINAL: No diarrhea, no nausea, no vomiting, no abdominal pain. NEUROLOGICAL: No headaches, no weakness, PHYSICAL EXAMINATION: GENERAL: The patient is alert and oriented x3, not in any acute distress. Well developed, well nourished. HEENT: Pupils are round and equally reacting to light. EOMI. No scleral icterus. No conjunctival pallor. Normocephalic, atraumatic. No pharyngeal erythema. No thyromegaly. CARDIOVASCULAR: S1 and S2 present. No murmurs, rubs, or gallops. PULMONARY: Chest is clear to auscultation, no wheezing or crackles. ABDOMEN: Soft, nontender, nondistended, normoactive bowel sounds. No palpable organomegaly. MUSCULOSKELETAL: No joint swelling or deformity. EXTREMITIES: No cyanosis, clubbing, or pedal edema. NEUROLOGICAL: Gross neurological examination did not reveal any focal deficits. SKIN: No rashes. Assessment and plan -Alcoholic pancreatitis - Transaminitis secondary to alcoholic hepatitis - Alcohol withdrawal - Elevated MCV secondary to alcohol use -Nicotine use and alcohol abuse: Monitor vital signs Monitor CBC Monitor CMP Continue IV fluid Continue antiemetics Start clear liquid diet Continue CIWA protocol Continue high-dose thiamine and folic acid Continue symptom triggered Ativan therapy Resume home med Labs and medication were reviewed.. Continue same treatment. Continue with symptomatic treatment. Resume home medication. Monitor labs and vitals. DVT and GI prophylaxis. Further recommendations as per clinical course of the patient Dictation was produced using [employer] dictation software. please excuse any grammatical, word or spelling errors. Objective - Vital Signs Vital signs: Vital Signs Temp 97.7 F 01/27/25 08:00 Pulse 84 01/27/25 08:00 Resp 17 01/27/25 08:00 BP 136/88 01/27/25 08:00 Pulse Ox 96 01/27/25 08:00 FiO2 Intake & Output 01/26/25 01/27/25 01/27/25 18:59 06:59 18:59 Intake Total 0 Balance 0 Weight 63.503 kg Intake: Oral 0 Other: Voiding Method Toilet Toilet Toilet # Voids 1 2 # Bowel Movements 0 - Labs CBC & Chem 7: 01/27/25 05:16 01/27/25 05:16 Labs: Abnormal Lab Results - Last 24 Hours (Table) 01/27/25 01/27/25 Range/Units 05:16 05:16 RBC 3.82 L (4.40-5.60) X 10*6/uL MCV 107.1 H (80.0-97.0) FL MCH 35.9 H (27.0-32.0) pg Plt Count 120 L (140-440) X 10*3/uL BUN 7.4 L (9.0-27.0) mg/dL BUN/Creatinine Ratio 9.25 L (12.00-20.00) Ratio Calcium 8.2 L (8.7-10.3) mg/dL AST 124 H (14-35) U/L ALT 106 H (10-49) U/L Total Protein 5.7 L (6.2-8.2) g/dL Albumin 3.7 L (3.8-4.9) g/dL Lipase 877 H (14-60) U/L
[2025-01-27] MEDS: Dextroamphetamine/Amphetamine [Adderall] 10 MG Tablet PO SCH (14:02)
[2025-01-27] MEDS: SYMBICORT 80-4.5 MCG INHALER INHALATION SCH (19:43)
[2025-01-27] MEDS: LORazepam 0.5 MG TAB PO PRN (20:01)
[2025-01-28] MEDS: ONDANSETRON 4 MG/2 ML VIAL IVP PRN (03:47)
[2025-01-28 05:40] LABS: Basophils # (A) 0.02 10*3/uL (0.00-0.10); Basophils % (A) 0.5 %; Eosinophils # (A) 0.49 10*3/uL (0.04-0.35); Eosinophils % (A) 11.6 %; HCT 38.8 % (39.6-50.0); HGB 13.1 g/dL (13.0-17.0); Lymphocytes # (A) 0.93 10*3/uL (0.90-5.00); MCH 36.2 pg (27.0-32.0); MCHC 33.8 g/dL (32.0-37.0); Mean Platelet Volume 10.2 fL (9.5-12.2); Monocytes # (A) 0.27 10*3/uL (0.20-1.00); Monocytes % (A) 6.4 %; Neutrophils % (A) 59.3 %; Platelet Count 120 10*3/uL (140-440); RBC 3.62 10*6/uL (4.40-5.60); RDW 11.9 % (11.5-14.5); WBC 4.22 10*3/uL (4.50-10.00)
[2025-01-28 05:53] LABS: MCV 107.2 fL (80.0-97.0)
[2025-01-28 07:40] VITALS: BP 118/74; PULSE 104; RESP 18; TEMP 98
[2025-01-28] MEDS: Dextroamphetamine/Amphetamine [Adderall Xr 30 Mg Capsule] PO SCH (10:08)
[2025-01-28 10:17] LABS: ALT 90 U/L (10-49); AST 92 U/L (14-35); Albumin 3.8 g/dL (3.8-4.9); Albumin/Globulin Ratio 1.73 Ratio (1.60-3.17); Alkaline Phosphatase 98 U/L (41-126); BUN/Creat Ratio <5.00 Ratio (12.00-20.00); Blood Urea Nitrogen <3.5 mg/dL (9.0-27.0); Calcium 8.4 mg/dL (8.7-10.3); Carbon Dioxide 22.1 mmol/L (21.6-31.8); Chloride 105 mmol/L (96-109); Globulin 2.2 g/dL (1.6-3.3); Glucose 114 mg/dL (70-110); Potassium 4.1 mmol/L (3.5-5.5); Sodium 136 mmol/L (135-145); Total Bilirubin 0.6 mg/dL (0.3-1.2)
[2025-01-28] MEDS ORDERED: HYDROcodone/APAP 5-325MG 1 EACH TAB PO PRN (10:49)
--- NOTE | 2025-01-28 13:06 | P.PN ---
Subjective Progress Note Date: 01/28/25 Patient is a pleasant 39-year-old male with known history of alcohol abuse drinks about a pint of hard liquor every day came in with complaints of severe epigastric sharp abdominal pain 10/10 radiating to the back along with nausea vomiting. Patient is found to have elevated lipase of 1370 admitted for alcohol pancreatitis and patient is on IV normal saline at 130 which is being cut down to 100 cc at this time. Patient does have elevated MCV. /. Patient seen and examined. States abdominal pain is improved. Patient was started on clear liquid 01/28. Patient seen and examined. Advance diet to full liquid. Abdominal pain has improved REVIEW OF SYSTEMS: CONSTITUTIONAL: No fever, no malaise,. CARDIOVASCULAR: No chest pain, no palpitations, no syncope. PULMONARY: No shortness of breath, no cough, GASTROINTESTINAL: No diarrhea, no nausea, no vomiting, no abdominal pain. NEUROLOGICAL: No headaches, no weakness, PHYSICAL EXAMINATION: GENERAL: The patient is alert and oriented x3, not in any acute distress. Well developed, well nourished. HEENT: Pupils are round and equally reacting to light. EOMI. No scleral icterus. No conjunctival pallor. Normocephalic, atraumatic. No pharyngeal erythema. No thyromegaly. CARDIOVASCULAR: S1 and S2 present. No murmurs, rubs, or gallops. PULMONARY: Chest is clear to auscultation, no wheezing or crackles. ABDOMEN: Soft, nontender, nondistended, normoactive bowel sounds. No palpable organomegaly. MUSCULOSKELETAL: No joint swelling or deformity. EXTREMITIES: No cyanosis, clubbing, or pedal edema. NEUROLOGICAL: Gross neurological examination did not reveal any focal deficits. SKIN: No rashes. Assessment and plan -Alcoholic pancreatitis - Transaminitis secondary to alcoholic hepatitis - Alcohol withdrawal - Elevated MCV secondary to alcohol use -Nicotine use and alcohol abuse: Monitor vital signs Monitor CBC Monitor CMP Continue IV fluid Continue antiemetics Advance diet to full liquid Continue CIWA protocol Continue high-dose thiamine and folic acid Continue symptom triggered Ativan therapy Continue home meds Labs and medication were reviewed.. Continue same treatment. Continue with symptomatic treatment. Resume home medication. Monitor labs and vitals. DVT and GI prophylaxis. Further recommendations as per clinical course of the patient Dictation was produced using [employer] dictation software. please excuse any grammatical, word or spelling errors. Objective - Vital Signs Vital signs: Vital Signs Temp 98 F 01/28/25 07:25 Pulse 104 H 01/28/25 07:25 Resp 18 01/28/25 07:25 BP 118/74 01/28/25 07:25 Pulse Ox 99 01/28/25 07:25 FiO2 Intake & Output 01/27/25 01/28/25 01/28/25 18:59 06:59 18:59 Intake Total 1860 590 Balance 1860 590 Intake: Oral 1860 590 Other: Voiding Method Toilet # Voids 2 4 - Labs CBC & Chem 7: 01/28/25 04:56 01/28/25 04:56 Labs: Abnormal Lab Results - Last 24 Hours (Table) 01/27/25 01/27/25 01/28/25 Range/Units 05:16 05:16 04:56 WBC 4.22 L (4.50-10.00) 10*3/uL RBC 3.82 L 3.62 L (4.40-5.60) X 10*6/uL Hct 38.8 L (39.6-50.0) % MCV 107.1 H 107.2 H D (80.0-97.0) FL MCH 35.9 H 36.2 H (27.0-32.0) pg Plt Count 120 L 120 L (140-440) X 10*3/uL Eosinophils # 0.49 H (0.04-0.35) 10*3/uL BUN 7.4 L (9.0-27.0) mg/dL BUN/Creatinine Ratio 9.25 L (12.00-20.00) Ratio Calcium 8.2 L (8.7-10.3) mg/dL AST 124 H (14-35) U/L ALT 106 H (10-49) U/L Total Protein 5.7 L (6.2-8.2) g/dL Albumin 3.7 L (3.8-4.9) g/dL Lipase 877 H (14-60) U/L
== END 2025-01-28 13:00 | disposition left against medical advice (07) ==
LOC: EC 02:53 → 5NMEDONC 06:18
PROVIDERS: ADMIT Hospitalist; ATTEND Hospitalist
DX: K86.0 Alcohol-induced chronic pancreatitis (principal); F10.239 Alcohol dependence with withdrawal, unspecified; F10.229 Alcohol dependence with intoxication, unspecified; K70.10 Alcoholic hepatitis without ascites; F17.200 Nicotine dependence, unspecified, uncomplicated; Y90.6 Blood alcohol level of 120-199 mg/100 ml; Z79.51 Long term (current) use of inhaled steroids; Z79.899 Other long term (current) drug therapy; Z53.29 Procedure and treatment not carried out because of patient's decision for other reasons
CPT/HCPCS: 96376 ×3; 96375 ×3; 96374; 99285; 36415; 94640 ×2; 80053 ×3; 83605; 83690 ×2; 85025 ×2; 85027; 80320; G0378 ×3; J2060 ×2; J1200; J2765; J2405; J2270; J1885; J1171 ×3; J2470 ×3